=== PATIENT | female | born 1970 | race Caucasian/White ===

== ENCOUNTER 2021-12-14 18:30 | Inpatient (IN) | payer OTHER, SELFPAY ==
--- NOTE | 2021-12-14 | ECG_ITS ---
Test Reason : OVERDOSE Blood Pressure : / mmHG Vent. Rate : 102 BPM Atrial Rate : 102 BPM P-R Int : 140 ms QRS Dur : 088 ms QT Int : 356 ms P-R-T Axes : 071 032 024 degrees QTc Int : 463 ms Sinus tachycardia Biatrial enlargement Nonspecific ST and T wave abnormality Abnormal ECG When compared with ECG of 14-DEC-2021 20:01, No significant change was found Referred By: Chong Andrade Electronically Signed By:MARGARET LUNA
--- NOTE | ~2021-12-14 | XR_ITS ---
EXAMINATION: XR CHEST CLINICAL INFORMATION: Unresponsive, overdose, evaluate for pneumonia. COMPARISON: Chest radiograph dated from 06/10/2019. TECHNIQUE: Frontal view of the chest was obtained. FINDINGS: No significant abnormality is noted involving the heart, lungs, mediastinum, bony thorax or soft tissues. XR/XR chest 1V IMPRESSION: Unremarkable examination.
--- NOTE | ~2021-12-14 | CT_ITS ---
EXAMINATION: CT BRAIN AND CT CERVICAL SPINE WITHOUT CONTRAST. CLINICAL INFORMATION: Unremarkable unresponsive. Overdose. COMPARISON: None TECHNIQUE: 5 mm thin axial and reformatted 2 mm thin sagittal and coronal images of brain were obtained. Subsequently axial 3 mm thin and reformatted 2 mm thin sagittal and coronal images of cervical spine were obtained. DLP [id number] FINDINGS: BRAIN: There is no acute intra-axial, extra-axial bleed, masses or midline shift. Both lateral ventricles are symmetrical in size and configuration without enlargement. There is no acute infarction evolution. The vasquez to white matter differentiation is maintained normal. Bone windows reveal no calvarial abnormality. There is no scalp soft tissue abnormality. Visualized bilateral paranasal sinuses and mastoid air cells are well-aerated. CERVICAL SPINE: There is mild reversal of cervical lordosis. The vertebral heights and alignment is normal. Mild loss of C6-C7 disc height with ventral spondylosis noted. Rest of the disc heights are normal. The craniovertebral junction and the C1-C2 alignment is normal. No acute fracture or dislocation seen. The prevertebral and the paravertebral soft tissues are normal. Partially visualized lung apices are clear. CT/CT cervical spine wo IV con IMPRESSION: No acute intracranial process seen. Reversal of cervical lordosis. No acute fracture or dislocation seen.
--- NOTE | ~2021-12-14 | XR_ITS ---
EXAMINATION: XR KNEE, RIGHT CLINICAL INFORMATION: Pain COMPARISON: None TECHNIQUE: Four views of the right knee. FINDINGS: Bones and soft tissues are normal. No fracture or joint effusion. Alignment is anatomic. Joint spaces are well maintained. No abnormal soft tissue calcification. XR/XR knee RT 4V IMPRESSION: No significant osseous changes to explain patient's pain symptoms.
--- NOTE | ~2021-12-14 | CT_ITS ---
EXAMINATION: CT BRAIN AND CT CERVICAL SPINE WITHOUT CONTRAST. CLINICAL INFORMATION: Unremarkable unresponsive. Overdose. COMPARISON: None TECHNIQUE: 5 mm thin axial and reformatted 2 mm thin sagittal and coronal images of brain were obtained. Subsequently axial 3 mm thin and reformatted 2 mm thin sagittal and coronal images of cervical spine were obtained. DLP [id number] FINDINGS: BRAIN: There is no acute intra-axial, extra-axial bleed, masses or midline shift. Both lateral ventricles are symmetrical in size and configuration without enlargement. There is no acute infarction evolution. The vasquez to white matter differentiation is maintained normal. Bone windows reveal no calvarial abnormality. There is no scalp soft tissue abnormality. Visualized bilateral paranasal sinuses and mastoid air cells are well-aerated. CERVICAL SPINE: There is mild reversal of cervical lordosis. The vertebral heights and alignment is normal. Mild loss of C6-C7 disc height with ventral spondylosis noted. Rest of the disc heights are normal. The craniovertebral junction and the C1-C2 alignment is normal. No acute fracture or dislocation seen. The prevertebral and the paravertebral soft tissues are normal. Partially visualized lung apices are clear. CT/CT head/brain wo IV con IMPRESSION: No acute intracranial process seen. Reversal of cervical lordosis. No acute fracture or dislocation seen.
[2021-12-14 18:34] VITALS: BP 129/86; BP 132/86; PULSE 113; PULSE 120; RESP 20; O2SAT 96; O2SAT 98; BMI 37.3
--- NOTE | 2021-12-14 18:36 | ECG_ITS ---
Test Reason : Overdose Blood Pressure : / mmHG Vent. Rate : 112 BPM Atrial Rate : 112 BPM P-R Int : 144 ms QRS Dur : 088 ms QT Int : 342 ms P-R-T Axes : 076 045 031 degrees QTc Int : 466 ms Sinus tachycardia Biatrial enlargement Nonspecific ST and T wave abnormality Abnormal ECG When compared with ECG of 21-OCT-2017 20:12, Non-specific change in ST segment in Inferior leads Non-specific change in ST segment in Anterior leads T wave inversion now evident in Inferior leads Referred By: Chong Andrade Electronically Signed By:MARGARET LUNA
--- NOTE | 2021-12-14 18:52 | ED_ITS ---
HPI - Overdose General Chief Complaint: Overdose Stated Complaint: OD Time Seen by Provider: 12/14/21 18:35 Source: EMS Mode of arrival: EMS Limitations: altered mental status History of Present Illness HPI Narrative: 51-year-old female brought to emergency department by ambulance for evaluation of possible overdose. The information on this patient is very limited. According to the paramedics she was seen this morning and she was well, she was then found unresponsive with multiple empty pill bottles around the patient. The paramedics wrote down the name of the medications but did not bring in the pill bottles. The medications are listed as follows: Acetaminophen- caffeine,nifedipine ER 30 mg, losartan/HCTZ-25, gabapentin 300 mg, butalbital/acetaminophen/caffeine 50/300/40, cyclobenzaprine 5 mg, clonazepam 0.5 mg Pradaxa 150 mg, vitamin-C 250 mg. 1917: The patient was not given any treatment and she is now more awake and is able to give a history. She told me that she was upset with her boyfriend this morning and that he was ?antagonizing her ?. This made her very upset and she told him that she was going to kill herself an overdose on her medications. He then told her to go ahead and take the medications cuts he was not going to stop her. This occurred around 08:30 hours this morning. Patient states that she then took 6 prescription bottles and took all the medications that were in them. She does not know when he is prescription bottles were filled or how many pills were in each bottle. She told me that she has been fighting with her boyfriend since he cheated on her recently with another woman. She states that the other woman was a child and barely of age to have set and this made her very upset. Related Data Home Medications Medication Instructions Recorded Confirmed clonazepam 0.5 mg tablet 1 tab PO BID PRN anxiety 12/15/21 12/15/21 cyclobenzaprine 5 mg tablet 1 mg PO DAILY 12/15/21 12/15/21 fluticasone propionate 50 1 spray intranasal BID PRN 12/15/21 12/15/21 mcg/actuation nasal congestion spray,suspension gabapentin 300 mg capsule 3 cap PO TID 12/15/21 12/15/21 losartan 100 1 tab PO DAILY 12/15/21 12/15/21 mg-hydrochlorothiazide 25 mg tablet nifedipine 30 mg tablet,extended 1 tab PO DAILY 12/15/21 12/15/21 release 24 hr Allergies Allergy/AdvReac Type Severity Reaction Status Date / Time buprenorphine [From SUBOXONE] Allergy Intermediate weakness Unverified 12/15/19 16:15 naloxone [From SUBOXONE] Allergy Intermediate weakness Unverified 12/15/19 16:15 heparin [HEPARIN] Allergy Unknown UNKNOWN Unverified 12/15/19 16:15 Iodinated Contrast Media Allergy Unknown KIDNEY Unverified 12/15/19 16:15 [IV CONTRAST] FAILURE rivaroxaban [From XARELTO] Allergy Unknown HAIR LOSS Unverified 12/15/19 16:15 AND SWELLING Review of Systems Review of Systems: Yes all other systems are reviewed and are negative [facility] Past Medical History [facility] Narrative: Past medical history: Hypertension, asthma, lupus, 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 Social history: She denies alcohol, drug and tobacco use Social History Social History Advance Directives: No Physical Exam Vital Signs: Vital Signs: Last Vital Signs Temp 97.4 F 12/15/21 00:48 Pulse 108 H 12/15/21 00:48 Resp 16 12/15/21 00:48 BP 102/68 12/15/21 00:48 Pulse Ox 95 12/15/21 00:48 O2 Del Method 12/15/21 00:48 BMI result Body Mass Index 37.3 Const: Other: Initially, the patient was minimally responsive to painful stimuli but did withdraw from painful stimuli. Without treatment she woke up in the emergency department and was able to answer questions appropriately. Orientation/consciousness: oriented to person HEENT: Head: Yes normal to inspection, Yes normocephalic and Yes atraumatic Ears: external ears normal General nose exam: Normal external nose present Face and sinus: Yes other (The patient has blood on her face, possibly from her nose) Mouth: Normal oral and palatal mucosa present Throat: Yes posterior oropharynx normal Eyes: Other: Pupils were 3 mm, symmetric and reactive to light General: appearance normal, both eyes and all related structures Neck: Neck: Yes normal visual inspection, Yes no lymphadenopathy, Yes trachea midline and Yes supple Chest: Chest palpation & inspection: normal inspection of the chest and normal palpation of entire chest wall Resp: Effort & Inspection: normal respiratory effort and able to speak in complete sentences Auscultation: clear to auscultation bilaterally Cardio: Rate: tachycardic Rhythm: regular rhythm Heart sounds: S1 normal heart sound present, S2 normal heart sound present and no murmurs GI: Inspection: Yes normal to inspection Palpation (GI): Soft to palpation, nontender and no guarding Auscultation: normal bowel sounds : Other: Nurses were placing a Mccann catheter and noted to tampons in the patient's vagi na which they removed, the temp eyes with dry with no blood on them. Skin: General skin exam: no rashes or lesions noted Neuro: General: oriented to person Cranial nerves: Yes CN's II-XII intact bilaterally Motor exam (neuro): 5/5 motor strength present throughout Extrem: General: Yes normal to inspection Psych: Appearance: grossly normal Affect: Sad affect present Attitude: cooperative Thought content: Suicidality present Course Course Course Narrative: 51-year-old female who presents emergency department for evaluation of altered mental status after an intentional overdose of her prescribed medications at approximately 08:30 hours with the intent to kill herself. The patient's physical examination did reveal some dried blood on her face, she initially was somnolent but arousable to painful stimuli in did withdraw from pain stimuli. Without treatment she became more responsive and was able to answer questions without any difficulty. The patient's vital signs did reveal an elevated pulse of 113 with normal respiratory rate, and normal O2 saturation of 96% on room air. I did discuss this overdose with the Poison coding specialist home health who also discussed the case with her public relations officer. The biggest concerns are the patient's acetaminophen ingestion as well as the fact that she ingested 3 antihypertensive medications (nifedipine, losartan and hydrochlorothiazide). The recommendation was to get an EKG every hour to follow the patient's QRS and QTC intervals. They also recommended NAC if her LFTs are elevated. They also felt that the patient's ingestion of cyclobenzaprine, gabapentin and clonazepam would explain her altered mental status. 0003: Patient's laboratory evaluation revealed a normal CBC, normal CMP, normal TSH, beta-hCG below detectable limits. Urinalysis was negative. Urine tox screen was positive for marijuana. Patient's salicylate and acetaminophen were below detectable limits. Patient's ethanol level was below detectable limits. 0006: Start physician observation: The patient's laboratory evaluation is very reassuring, this overdose occurred at least 12-15 hours prior to the patient's presentation. At this point, I believe the patient is medically cleared for psychiatric evaluation. I did place the patient on a Section 12. The patient will be transferred to the ED psychiatric unit. Patient is somnolent but arousable, she answers all questions appropriately, lungs were clear, heart regular rate rhythm, abdomen soft nontender, neurologic exam is nonfocal. MDM - Overdose Medical Records Attestation: I reviewed the patient's medical records. Lab Data Attestation: I reviewed the patient's lab results. Result diagrams: 12/14/21 20:15 12/14/21 20:15 Labs: Lab Results 12/14/21 12/14/21 12/14/21 Range/Units 18:35 20:14 20:15 WBC 8.6 (4.8-10.8) X10*3/uL RBC 5.15 (4.20-5.50) X10*6/uL Hgb 14.8 (12.0-16.0) g/dl Hct 43.7 (37.0-47.0) % MCV 84.9 (80.0-98.0) fL MCH 28.7 (27.0-33.0) pg MCHC 33.9 (31.0-35.0) g/dl RDW 13.7 (11.0-16.0) % Plt Count 343 (160-400) X10*3/uL MPV 11.0 (9.4-12.3) fL Immature Gran % (Auto) 0.2 (0.0-0.4) % Neut % (Auto) 85.2 H (45-73) % Lymph % (Auto) 11.2 L (20-40) % Beckham % (Auto) 2.8 (2-11) % Eos % (Auto) 0.1 (0-4) % Baso % (Auto) 0.5 (0-2) % Lymph # (Auto) 1.0 L (1.2-4.9) X10*3/uL Beckham # (Auto) 0.2 (0.1-1.2) X10*3/uL Eos # (Auto) 0.0 (0.0-0.4) X10*3/uL Baso # (Auto) 0.0 (0.0-0.2) X10*3/uL Abs Immat Gran (auto) 0.02 (0.00-0.03) X10*3/uL Absolute Neuts (auto) 7.4 (2.0-8.3) x10*3/uL Absolute Nucleated RBC 0.000 (0.0-0.012) X10*3/uL Nucleated RBC % (auto) 0.0 (0.0-0.2) /100WBC PT (10.0-13.1) SEC INR (0.9-1.1) APTT (26.0-36.4) SEC Sodium (135-145) mmol/L Potassium (3.3-5.1) mmol/L Chloride (96-108) mmol/L Carbon Dioxide (22-29) mmol/L Anion Gap (12-20) BUN (9-16) mg/dL Creatinine (0.5-1.4) mg/dL Estim Creat Clear Calc Estimated GFR POC Glucose 93 (60-115) mg/dL Random Glucose (60-115) mg/dL Lactic Acid (0.5-2.0) mmol/L Calcium (8.4-10.2) mg/dL Total Bilirubin (0.0-1.0) mg/dL AST (5-31) U/L ALT (0-31) U/L Alkaline Phosphatase (39-117) U/L Total Creatine Kinase (26-140) U/L Troponin I High Sens (<3.5-17.0) ng/L Total Protein (6.5-8.0) g/dL Albumin (3.5-5.0) g/dL Lipase (8-78) U/L TSH (0.32-4.0) uIU/mL Beta HCG, Quant mIU/mL Urine Color Yellow Urine Appearance Clear Urine pH 5.5 (5.0-9.0) Ur Specific [place] 1.010 (1.005-1.025) Urine Protein Negative (Neg-Trace) mg/dL Urine Glucose (UA) Negative (Negative) mg/dL Urine Ketones 40 (Negative) mg/dL Urine Blood Trace H (Negative) Urine Nitrite Negative (Negative) Ur Leukocyte Esterase Negative (Negative) Urine RBC 0-2 (0-2) /HPF Urine WBC 0-5 (0-5) /HPF Ur Squamous Epith Cells 0-2 (0-2) /HPF Urine Bacteria None Seen (None Seen) Hyaline Casts 0-2 (0-2) /LPF Salicylates (15-30) mg/dL Urine Opiates Screen (Not Detect) Urine Fentanyl Screen (Not Detect) Acetaminophen (<30) mcg/mL Ur Barbiturates Screen (Not Detect) Ur Phencyclidine Scrn (Not Detect) Ur Amphetamines Screen (Not Detect) U Benzodiazepines Scrn (Not Detect) Urine Cocaine Screen (Not Detect) U Marijuana (THC) Screen (Not Detect) Ethyl Alcohol mg/dL COVID-19 (KRISTY) (Negative) COVID-19 Clin Com 12/14/21 12/14/21 12/14/21 Range/Units 20:15 20:15 20:15 WBC (4.8-10.8) X10*3/uL RBC (4.20-5.50) X10*6/uL Hgb (12.0-16.0) g/dl Hct (37.0-47.0) % MCV (80.0-98.0) fL MCH (27.0-33.0) pg MCHC (31.0-35.0) g/dl RDW (11.0-16.0) % Plt Count (160-400) X10*3/uL MPV (9.4-12.3) fL Immature Gran % (Auto) (0.0-0.4) % Neut % (Auto) (45-73) % Lymph % (Auto) (20-40) % Beckham % (Auto) (2-11) % Eos % (Auto) (0-4) % Baso % (Auto) (0-2) % Lymph # (Auto) (1.2-4.9) X10*3/uL [place] # (Auto) (0.1-1.2) X10*3/uL Eos # (Auto) (0.0-0.4) X10*3/uL Baso # (Auto) (0.0-0.2) X10*3/uL Abs Immat Gran (auto) (0.00-0.03) X10*3/uL Absolute Neuts (auto) (2.0-8.3) x10*3/uL Absolute Nucleated RBC (0.0-0.012) X10*3/uL Nucleated RBC % (auto) (0.0-0.2) /100WBC PT 13.3 H (10.0-13.1) SEC INR 1.2 H (0.9-1.1) APTT 54.9 H (26.0-36.4) SEC Sodium 137 (135-145) mmol/L Potassium 4.9 (3.3-5.1) mmol/L Chloride 100 (96-108) mmol/L Carbon Dioxide 15 L (22-29) mmol/L Anion Gap 27 H (12-20) BUN 9 (9-16) mg/dL Creatinine 0.80 (0.5-1.4) mg/dL Estim Creat Clear Calc 92.6 Estimated GFR > 60 POC Glucose (60-115) mg/dL Random Glucose 84 (60-115) mg/dL Lactic Acid 0.7 (0.5-2.0) mmol/L Calcium 9.6 (8.4-10.2) mg/dL Total Bilirubin 0.9 (0.0-1.0) mg/dL AST 31 (5-31) U/L ALT 19 (0-31) U/L Alkaline Phosphatase 67 (39-117) U/L Total Creatine Kinase 52 (26-140) U/L Troponin I High Sens (<3.5-17.0) ng/L Total Protein 8.5 H (6.5-8.0) g/dL Albumin 4.7 (3.5-5.0) g/dL Lipase 9 (8-78) U/L TSH (0.32-4.0) uIU/mL Beta HCG, Quant 3 mIU/mL Urine Color Urine Appearance Urine pH (5.0-9.0) Ur Specific [place] (1.005-1.025) Urine Protein (Neg-Trace) mg/dL Urine Glucose (UA) (Negative) mg/dL Urine Ketones (Negative) mg/dL Urine Blood (Negative) Urine Nitrite (Negative) Ur Leukocyte Esterase (Negative) Urine RBC (0-2) /HPF Urine WBC (0-5) /HPF Ur Squamous Epith Cells (0-2) /HPF Urine Bacteria (None Seen) Hyaline Casts (0-2) /LPF Salicylates < 5.0 L (15-30) mg/dL Urine Opiates Screen (Not Detect) Urine Fentanyl Screen (Not Detect) Acetaminophen < 1 (<30) mcg/mL Ur Barbiturates Screen (Not Detect) Ur Phencyclidine Scrn (Not Detect) Ur Amphetamines Screen (Not Detect) U Benzodiazepines Scrn (Not Detect) Urine Cocaine Screen (Not Detect) U Marijuana (THC) Screen (Not Detect) Ethyl Alcohol < 10 mg/dL COVID-19 (KRISTY) (Negative) COVID-19 Clin Com 12/14/21 12/14/21 12/14/21 Range/Units 20:15 20:15 20:15 WBC (4.8-10.8) X10*3/uL RBC (4.20-5.50) X10*6/uL Hgb (12.0-16.0) g/dl Hct (37.0-47.0) % MCV (80.0-98.0) fL MCH (27.0-33.0) pg MCHC (31.0-35.0) g/dl RDW (11.0-16.0) % Plt Count (160-400) X10*3/uL MPV (9.4-12.3) fL Immature Gran % (Auto) (0.0-0.4) % Neut % (Auto) (45-73) % Lymph % (Auto) (20-40) % Beckham % (Auto) (2-11) % Eos % (Auto) (0-4) % Baso % (Auto) (0-2) % Lymph # (Auto) (1.2-4.9) X10*3/uL [place] # (Auto) (0.1-1.2) X10*3/uL Eos # (Auto) (0.0-0.4) X10*3/uL Baso # (Auto) (0.0-0.2) X10*3/uL Abs Immat Gran (auto) (0.00-0.03) X10*3/uL Absolute Neuts (auto) (2.0-8.3) x10*3/uL Absolute Nucleated RBC (0.0-0.012) X10*3/uL Nucleated RBC % (auto) (0.0-0.2) /100WBC PT (10.0-13.1) SEC INR (0.9-1.1) APTT (26.0-36.4) SEC Sodium (135-145) mmol/L Potassium (3.3-5.1) mmol/L Chloride (96-108) mmol/L Carbon Dioxide (22-29) mmol/L Anion Gap (12-20) BUN (9-16) mg/dL Creatinine (0.5-1.4) mg/dL Estim Creat Clear Calc Estimated GFR POC Glucose (60-115) mg/dL Random Glucose (60-115) mg/dL Lactic Acid (0.5-2.0) mmol/L Calcium (8.4-10.2) mg/dL Total Bilirubin (0.0-1.0) mg/dL AST (5-31) U/L ALT (0-31) U/L Alkaline Phosphatase (39-117) U/L Total Creatine Kinase (26-140) U/L Troponin I High Sens 5.4 (<3.5-17.0) ng/L Total Protein (6.5-8.0) g/dL Albumin (3.5-5.0) g/dL Lipase (8-78) U/L TSH 0.92 (0.32-4.0) uIU/mL Beta HCG, Quant mIU/mL Urine Color Urine Appearance Urine pH (5.0-9.0) Ur Specific [place] (1.005-1.025) Urine Protein (Neg-Trace) mg/dL Urine Glucose (UA) (Negative) mg/dL Urine Ketones (Negative) mg/dL Urine Blood (Negative) Urine Nitrite (Negative) Ur Leukocyte Esterase (Negative) Urine RBC (0-2) /HPF Urine WBC (0-5) /HPF Ur Squamous Epith Cells (0-2) /HPF Urine Bacteria (None Seen) Hyaline Casts (0-2) /LPF Salicylates (15-30) mg/dL Urine Opiates Screen (Not Detect) Urine Fentanyl Screen (Not Detect) Acetaminophen (<30) mcg/mL Ur Barbiturates Screen (Not Detect) Ur Phencyclidine Scrn (Not Detect) Ur Amphetamines Screen (Not Detect) U Benzodiazepines Scrn (Not Detect) Urine Cocaine Screen (Not Detect) U Marijuana (THC) Screen (Not Detect) Ethyl Alcohol mg/dL COVID-19 (KRISTY) Negative (Negative) COVID-19 Clin Com See Note 12/14/21 Range/Units 20:15 WBC (4.8-10.8) X10*3/uL RBC (4.20-5.50) X10*6/uL Hgb (12.0-16.0) g/dl Hct (37.0-47.0) % MCV (80.0-98.0) fL MCH (27.0-33.0) pg MCHC (31.0-35.0) g/dl RDW (11.0-16.0) % Plt Count (160-400) X10*3/uL MPV (9.4-12.3) fL Immature Gran % (Auto) (0.0-0.4) % Neut % (Auto) (45-73) % Lymph % (Auto) (20-40) % Beck[place] % (Auto) (2-11) % Eos % (Auto) (0-4) % Baso % (Auto) (0-2) % Lymph # (Auto) (1.2-4.9) X10*3/uL [place] # (Auto) (0.1-1.2) X10*3/uL Eos # (Auto) (0.0-0.4) X10*3/uL Baso # (Auto) (0.0-0.2) X10*3/uL Abs Immat Gran (auto) (0.00-0.03) X10*3/uL Absolute Neuts (auto) (2.0-8.3) x10*3/uL Absolute Nucleated RBC (0.0-0.012) X10*3/uL Nucleated RBC % (auto) (0.0-0.2) /100WBC PT (10.0-13.1) SEC INR (0.9-1.1) APTT (26.0-36.4) SEC Sodium (135-145) mmol/L Potassium (3.3-5.1) mmol/L Chloride (96-108) mmol/L Carbon Dioxide (22-29) mmol/L Anion Gap (12-20) BUN (9-16) mg/dL Creatinine (0.5-1.4) mg/dL Estim Creat Clear Calc Estimated GFR POC Glucose (60-115) mg/dL Random Glucose (60-115) mg/dL Lactic Acid (0.5-2.0) mmol/L Calcium (8.4-10.2) mg/dL Total Bilirubin (0.0-1.0) mg/dL AST (5-31) U/L ALT (0-31) U/L Alkaline Phosphatase (39-117) U/L Total Creatine Kinase (26-140) U/L Troponin I High Sens (<3.5-17.0) ng/L Total Protein (6.5-8.0) g/dL Albumin (3.5-5.0) g/dL Lipase (8-78) U/L TSH (0.32-4.0) uIU/mL Beta HCG, Quant mIU/mL Urine Color Urine Appearance Urine pH (5.0-9.0) Ur Specific [place] (1.005-1.025) Urine Protein (Neg-Trace) mg/dL Urine Glucose (UA) (Negative) mg/dL Urine Ketones (Negative) mg/dL Urine Blood (Negative) Urine Nitrite (Negative) Ur Leukocyte Esterase (Negative) Urine RBC (0-2) /HPF Urine WBC (0-5) /HPF Ur Squamous Epith Cells (0-2) /HPF Urine Bacteria (None Seen) Hyaline Casts (0-2) /LPF Salicylates (15-30) mg/dL Urine Opiates Screen Not Detected (Not Detect) Urine Fentanyl Screen Not Detected (Not Detect) Acetaminophen (<30) mcg/mL Ur Barbiturates Screen Not Detected (Not Detect) Ur Phencyclidine Scrn Not Detected (Not Detect) Ur Amphetamines Screen Not Detected (Not Detect) U Benzodiazepines Scrn Not Detected (Not Detect) Urine Cocaine Screen Not Detected (Not Detect) U Marijuana (THC) Screen POSITIVE H (Not Detect) Ethyl Alcohol mg/dL COVID-19 (KRISTY) (Negative) COVID-19 Clin Com ABG Data ABG results: EKG 1.: 1843: Sinus tachycardia with a rate of 112, normal MA interval, QRS duration QTC interval, no ST segment elevation, no ST segment depression, no significant T-wave abnormalities, no PACs, no PVCs EKG 2.: 2000: Sinus tachycardia with a rate of 107, normal MA interval, QRS duration and QTC interval, no ST segment elevation, no ST segment depression, no significant T-wave abnormalities, no PACs, no PVCs, unchanged from EKG 1. EKG 3.: 2226: Sinus tachycardia with a rate of 102, normal MA interval, QRS duration and QTC interval, no ST segment elevation, no ST segment depression, no significant T-wave abnormalities, no PACs, no PVCs, unchanged from EKG 1. Or EKG 2. ECG Data Attestation: I personally reviewed and interpreted this ECG as follows: Interpretation: 1843: Sinus tachycardia with a rate of 112, normal MA interval, QRS duration QTC interval, no ST segment elevation, no ST segment depression, no PACs, no PVCs, no T-wave abnormalities. Critical Care Time Critical Care Time Critical Care Time: Yes Total Critical Care Time: 45 Attestation: Critical Care: The patient was critically ill with a high probability of imminent or life threatening deterioration. I spent greater than 30 minutes of discontinuous time evaluating the patient,delivering critical care at the bedside, discussing and evaluating pertinent data with consultants. Critical care time does not include time spent performing separately billable procedures or teaching. Total time spent performing critical care was 45 minutes. Discharge Plan Discharge Clinical Impression: Drug overdose, Suicide attempt Patient Disposition: Still a Patient Prescriptions: No Action nifedipine 30 mg tablet extended release 24hr 1 tab PO DAILY clonazepam 0.5 mg tablet 1 tab PO BID PRN (Reason: anxiety) losartan-hydrochlorothiazide 100-25 mg tablet 1 tab PO DAILY gabapentin 300 mg capsule 3 cap PO TID fluticasone propionate 50 mcg/actuation spray,suspension 1 spray intranasal BID PRN (Reason: congestion) cyclobenzaprine 5 mg tablet 1 mg PO DAILY
--- NOTE | 2021-12-14 18:56 | PC.NURSE ---
patient arousable stating she took all her medication would not like boyfriend not to come in because he encouraged her to do it . DR Tim Andrade at bed side talking about patients medical history of lupus , blood clots . IV placed in right AC . Catheter placed . patient aware of plan of care . patient placed on personnel monitor . patient aware of plan of care .
[2021-12-14] MEDS: 0.9 % Sodium Chloride 1,000 ML 999 ML IV (19:28)
--- NOTE | 2021-12-14 19:45 | ECG_ITS ---
Test Reason : OVERDOSE Blood Pressure : / mmHG Vent. Rate : 107 BPM Atrial Rate : 107 BPM P-R Int : 148 ms QRS Dur : 084 ms QT Int : 348 ms P-R-T Axes : 070 035 023 degrees QTc Int : 464 ms Sinus tachycardia Possible Left atrial enlargement Nonspecific ST and T wave abnormality Borderline ECG When compared with ECG of 14-DEC-2021 18:43, No significant change was found Referred By: Chong Andrade Electronically Signed By:MARGARET LUNA
[2021-12-14 20:00] VITALS: BP 121/76; PULSE 106; RESP 10; O2SAT 98
[2021-12-14 20:03] VITALS: BP 121/76; PULSE 108; RESP 13; O2SAT 98
[2021-12-14 20:24] LABS: Appearance Urine Clear; Color Urine Yellow; Glucose Urine UA Negative (Negative); Leukocyte Esterase Urine Negative (Negative); Nitrite Urine Negative (Negative); PH 5.5 (5.0-9.0); UMIC TRIGGER UACC YES; Urine Blood Trace (Negative); Urine Ketones 40 mg/dL (Negative); Urine Protein Negative (Neg-Trace)
[2021-12-14 20:24] LABS: MANUAL DIFF FLAG NO
[2021-12-14 20:30] LABS: Basophils Percent Auto 0.5 % (0-2); Eosinophils Percent Auto 0.1 % (0-4); Hematocrit 43.7 % (37.0-47.0); Hemoglobin 14.8 g/dl (12.0-16.0); Imm Gran Abs Auto 0.02 X10*3/uL (0.00-0.03); Imm Gran Pct Auto 0.2 % (0.0-0.4); Lymphocytes Percent Auto 11.2 % (20-40); Mean Corpuscular HGB Conc 33.9 g/dl (31.0-35.0); Mean Corpuscular Hemoglobin 28.7 pg (27.0-33.0); Mean Corpuscular Volume 84.9 fL (80.0-98.0); Monocytes Absolute Auto 0.2 X10*3/uL (0.1-1.2); Monocytes Percent Auto 2.8 % (2-11); Neutrophils Absolute Auto 7.4 x10*3/uL (2.0-8.3); Neutrophils Percent Auto 85.2 % (45-73); Platelet Count 343 X10*3/uL (160-400); Red Blood Count 5.15 X10*6/uL (4.20-5.50); Red Cell Distribution Width 13.7 % (11.0-16.0); White Blood Count 8.6 X10*3/uL (4.8-10.8)
[2021-12-14 20:31] LABS: Glucose, Whole Blood 93 mg/dL (60-115)
[2021-12-14 20:39] LABS: Lactic Acid 0.7 mmol/L (0.5-2.0)
[2021-12-14 20:39] LABS: Bacteria Urine None Seen (None Seen); Hyaline Casts Urine 0-2 /LPF (0-2); RBC Urine 0-2 /HPF (0-2); Squamous Epithelial Cell Urine 0-2 /HPF (0-2); WBC Urine 0-5 /HPF (0-5)
[2021-12-14 20:42] LABS: INTERNATIONAL NORM RATIO 1.2 (0.9-1.1); Prothrombin Time 13.3 SEC (10.0-13.1)
[2021-12-14 20:43] LABS: Amphetamine Screen Urine Not Detected (Not Detect); Barbiturates, Urine Not Detected (Not Detect); Benzodiazepines Screen Urine Not Detected (Not Detect); Cannabinoid Screen Urine POSITIVE (Not Detect); Cocaine Screen Urine Not Detected (Not Detect); Fentanyl, urine Not Detected (Not Detect); Opiate Screen Urine Not Detected (Not Detect); Phencyclidine Screen Urine Not Detected (Not Detect)
[2021-12-14 20:44] LABS: COVID-19 Test Negative (Negative); Partial Thromboplastin Time 54.9 SEC (26.0-36.4)
[2021-12-14 20:48] LABS: Troponin-I High Sensitivity 5.4 ng/L (<3.5-17.0)
[2021-12-14 20:49] VITALS: BP 126/83
[2021-12-14 21:02] LABS: TSH reflex Free T4 0.92 uIU/mL (0.32-4.0)
[2021-12-14 21:47] LABS: Alanine Aminotransferase 19 U/L (0-31); Albumin Level 4.7 g/dL (3.5-5.0); Alkaline Phosphatase 67 U/L (39-117); Anion Gap 27 (12-20); Aspartate Amino Transferase 31 U/L (5-31); Bilirubin Total 0.9 mg/dL (0.0-1.0); Blood Urea Nitrogen 9 mg/dL (9-16); Calcium 9.6 mg/dL (8.4-10.2); Carbon Dioxide 15 mmol/L (22-29); Chloride 100 mmol/L (96-108); Creatinine Clr Calc Pharmacy 92.6; Estimated Glomerular Filt Rate > 60; Ethanol < 10 mg/dL; Glucose Random 84 mg/dL (60-115); Lipase 9 U/L (8-78); Potassium 4.9 mmol/L (3.3-5.1); Sodium 137 mmol/L (135-145); Total Protein 8.5 g/dL (6.5-8.0)
[2021-12-14 21:59] LABS: HCG Quantitative 3 mIU/mL
[2021-12-14 22:49] VITALS: BP 109/73; PULSE 104; RESP 15; O2SAT 97
[2021-12-14 22:54] LABS: Acetaminophen LAB < 1 mcg/mL (<30); Salicylate < 5.0 mg/dL (15-30)
--- NOTE | 2021-12-14 23:23 | PC.NURSE ---
Spoke with poison control and reported lab results, no other instructions from them. MD aware results are back
--- NOTE | 2021-12-14 23:28 | PC.NURSE ---
Addendum entered by Amarilis Pastrana RN 12/15/21 00:18: [facility] crisis referral submitted. Addendum entered by Amarilis Pastrana RN 12/14/21 23:41: Spoke to who will be putting a section 12 on the pt. Pt will be moved to [facility] Original Note: Pt is responsive to verbal stimuli. A&Ox4. Pt stated that this overdose happened intentionally and she has a history of depression. borderline personality disorder, and SI. Pt reported there are no thoughts of SI at this time. Pt stated she has been under a lot of stress recently and her boyfriend antagonized and egged on the overdose.
--- NOTE | 2021-12-15 00:44 | PC.NURSE ---
Patient just got transferred from main ED, appears frustrated and upset told us no visitor for her, [facility] called/spoke [facility]/confirmed receipt of referral/patient will be evaluated in the morning, behavior non concerning, VSS, will continue to monitor.
[2021-12-15 00:48] VITALS: BP 102/68; PULSE 108; RESP 16; TEMP 36.3; O2SAT 95
[2021-12-15] MEDS: Acetaminophen 325 MG TABLET 975 MG PO (01:27)
--- NOTE | 2021-12-15 14:40 | PHA.MEDREC ---
Pharmacy Consult ? Medication Reconciliation Pharmacy has reviewed the medication reconciliation done by Kit.
[2021-12-15 14:47] VITALS: BP 90/59; PULSE 107; TEMP 37.1; O2SAT 97
[2021-12-15 15:39] VITALS: BP 112/77; PULSE 136; RESP 18; O2SAT 97
--- NOTE | 2021-12-15 16:05 | ECG_ITS ---
Test Reason : DIZZINESS Blood Pressure : / mmHG Vent. Rate : 095 BPM Atrial Rate : 095 BPM P-R Int : 134 ms QRS Dur : 084 ms QT Int : 382 ms P-R-T Axes : 069 041 016 degrees QTc Int : 480 ms Normal sinus rhythm Right atrial enlargement T wave abnormality, consider anterior ischemia Prolonged QT Abnormal ECG When compared with ECG of 14-DEC-2021 22:26, T wave inversion now evident in Anterior leads Referred By: Chong Andrade Electronically Signed By:MARGARET LUNA
[2021-12-15] MEDS: 0.9 % Sodium Chloride 1,000 ML 999 ML IV ×2 (16:12→16:15)
[2021-12-15] MEDS: ondansetron HCL 4 MG/2 ML VIAL IVPUSH (16:15)
[2021-12-15 16:39] LABS: MANUAL DIFF FLAG NO
[2021-12-15 16:42] LABS: Basophils Absolute Auto 0.1 X10*3/uL (0.0-0.2); Basophils Percent Auto 0.9 % (0-2); Eosinophils Absolute Auto 0.1 X10*3/uL (0.0-0.4); Eosinophils Percent Auto 0.6 % (0-4); Hematocrit 45.3 % (37.0-47.0); Imm Gran Abs Auto 0.03 X10*3/uL (0.00-0.03); Imm Gran Pct Auto 0.3 % (0.0-0.4); Lymphocytes Absolute Auto 1.6 X10*3/uL (1.2-4.9); Lymphocytes Percent Auto 16.7 % (20-40); Mean Corpuscular HGB Conc 33.1 g/dl (31.0-35.0); Mean Corpuscular Hemoglobin 27.5 pg (27.0-33.0); Mean Corpuscular Volume 83.1 fL (80.0-98.0); Mean Platelet Volume 10.6 fL (9.4-12.3); Monocytes Absolute Auto 0.5 X10*3/uL (0.1-1.2); Monocytes Percent Auto 5.6 % (2-11); Neutrophils Absolute Auto 7.1 x10*3/uL (2.0-8.3); Neutrophils Percent Auto 75.9 % (45-73); Platelet Count 379 X10*3/uL (160-400); Red Blood Count 5.45 X10*6/uL (4.20-5.50); Red Cell Distribution Width 13.9 % (11.0-16.0); White Blood Count 9.3 X10*3/uL (4.8-10.8)
[2021-12-15 16:47] LABS: INTERNATIONAL NORM RATIO 1.2 (0.9-1.1); Prothrombin Time 13.4 SEC (10.0-13.1)
[2021-12-15 16:50] LABS: Partial Thromboplastin Time 46.6 SEC (26.0-36.4)
[2021-12-15 16:54] LABS: Glucose, Whole Blood 61 mg/dL (60-115)
[2021-12-15 17:00] LABS: Alanine Aminotransferase 15 U/L (0-31); Albumin Level 4.3 g/dL (3.5-5.0); Alkaline Phosphatase 59 U/L (39-117); Anion Gap 22 (12-20); Aspartate Amino Transferase 20 U/L (5-31); Blood Urea Nitrogen 14 mg/dL (9-16); Calcium 9.2 mg/dL (8.4-10.2); Carbon Dioxide 22 mmol/L (22-29); Chloride 98 mmol/L (96-108); Creatinine Clr Calc Pharmacy 69.9; Estimated Glomerular Filt Rate 55; Glucose Random 64 mg/dL (60-115); Lipase 11 U/L (8-78); Sodium 138 mmol/L (135-145); Total Protein 7.3 g/dL (6.5-8.0)
--- NOTE | 2021-12-15 17:14 | PC.NURSE ---
Jory SUMMERS came to transfer patient to [facility]. Patient c/o palpitations and dizziness vitals done see expanse for vitals. Dr. Hannah notified patient not stable to go to [facility]. MD ordered fluids, labs, ekg, and zofran for nausea. Patient has 1:1 sitter. Will continue with plan of care.
[2021-12-15 17:43] VITALS: BP 116/77; PULSE 100; RESP 18; O2SAT 98
--- NOTE | 2021-12-15 18:13 | PC.NURSE ---
Dr. Yang notified patient feeling better not as dizzy walked to the bathroom to void. vitals are in computer. Will remove iv once fluids are done unless you want me to give her more fluids. Dr. Yang's response, Her labs look good. Vital signs were improved but she still was slightly tachycardic with a Heart rate of 100. I need to add a D-dimer onto her blood work, leave the IV in for now. Will continue with plan of care.
[2021-12-15 18:17] LABS: D Dimer High Sensitivity 179 NG/ML
--- NOTE | 2021-12-15 18:23 | PC.NURSE ---
Dr. Rosenthal wants iv pulled. D dimer is normal.
--- NOTE | 2021-12-15 18:28 | PC.NURSE ---
Spoke to Jory RN regarding transfer to let her know she is medically cleared for admission. Will try to come before change of shift if not next shift will come to get her.
[2021-12-15 22:00] VITALS: BP 117/75; PULSE 113; RESP 18; TEMP 36.4; O2SAT 97
--- NOTE | 2021-12-16 | ECG_ITS ---
Test Reason : cp Blood Pressure : / mmHG Vent. Rate : 092 BPM Atrial Rate : 092 BPM P-R Int : 130 ms QRS Dur : 086 ms QT Int : 384 ms P-R-T Axes : 074 049 -24 degrees QTc Int : 474 ms Normal sinus rhythm Biatrial enlargement Cannot rule out Inferior infarct , age undetermined T wave abnormality, consider anterolateral ischemia Abnormal ECG When compared with ECG of 15-DEC-2021 16:13, Minimal criteria for Inferior infarct are now Present T wave inversion more evident in Inferior leads T wave inversion more evident in Anterior leads Referred By: Smooth Orr Electronically Signed By:MARGARET LUNA
[2021-12-16] MEDS: clonazePAM 0.5 MG TABLET PO ×2 (00:22→09:43)
[2021-12-16] MEDS: traZODone HCL 50 MG TABLET PO (00:22)
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
[2021-12-16 06:00] VITALS: BP 140/74; PULSE 115; RESP 16; TEMP 36.8; O2SAT 94
[2021-12-16 08:55] LABS: Glucose, Whole Blood 76 mg/dL (60-115)
[2021-12-16 09:08] LABS: Estimated Average Glucose 91 mg/dL; Hemoglobin A1c % 4.8 %
[2021-12-16 09:26] LABS: Alanine Aminotransferase 19 U/L (0-31); Albumin Level 4.4 g/dL (3.5-5.0); Alkaline Phosphatase 61 U/L (39-117); Anion Gap 22 (12-20); Aspartate Amino Transferase 24 U/L (5-31); Blood Urea Nitrogen 10 mg/dL (9-16); Calcium 9.3 mg/dL (8.4-10.2); Carbon Dioxide 18 mmol/L (22-29); Chloride 101 mmol/L (96-108); Cholesterol 225 mg/dL; Creatinine Clr Calc Pharmacy 85.1; Estimated Glomerular Filt Rate > 60; Glucose Fasting 67 mg/dL (60-99); HDL Cholesterol 29 mg/dL; LDL Cholesterol Calculated 171 mg/dl; Potassium 4.3 mmol/L (3.3-5.1); Sodium 137 mmol/L (135-145); Total Protein 7.7 g/dL (6.5-8.0); Triglycerides 127 mg/dL
[2021-12-16 09:43] LABS: Thyroid Stimulating Hormone 2.92 uIU/mL (0.32-4.0)
[2021-12-16] MEDS: NIFEdipine ER 30 MG TAB.ER.24 PO (09:43)
[2021-12-16] MEDS: Losartan Potassium 50 MG TABLET 100 MG PO (09:43)
[2021-12-16] MEDS: hydroCHLOROthiazide 25 MG TABLET PO (09:44)
[2021-12-16 10:15] LABS: Folate 10.9 ng/mL (> or = 4.0); Vitamin B12 519 pg/mL (200-900)
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
[2021-12-16 11:39] LABS: Alanine Aminotransferase 16 U/L (0-31); Albumin Level 4.4 g/dL (3.5-5.0); Alkaline Phosphatase 61 U/L (39-117); Anion Gap 18 (12-20); Aspartate Amino Transferase 23 U/L (5-31); Blood Urea Nitrogen 11 mg/dL (9-16); Calcium 9.6 mg/dL (8.4-10.2); Carbon Dioxide 24 mmol/L (22-29); Chloride 98 mmol/L (96-108); Creatinine Clr Calc Pharmacy 67.9; Estimated Glomerular Filt Rate 53; Glucose Random 131 mg/dL (60-115); Hematocrit 44.1 % (37.0-47.0); Hemoglobin 14.6 g/dl (12.0-16.0); Mean Corpuscular HGB Conc 33.1 g/dl (31.0-35.0); Mean Corpuscular Hemoglobin 27.7 pg (27.0-33.0); Mean Corpuscular Volume 83.5 fL (80.0-98.0); Mean Platelet Volume 10.8 fL (9.4-12.3); Platelet Count 332 X10*3/uL (160-400); Potassium 4.1 mmol/L (3.3-5.1); Red Blood Count 5.28 X10*6/uL (4.20-5.50); Red Cell Distribution Width 13.8 % (11.0-16.0); Sodium 136 mmol/L (135-145); Total Protein 7.4 g/dL (6.5-8.0); White Blood Count 7.3 X10*3/uL (4.8-10.8)
[2021-12-16 11:40] LABS: Troponin-I High Sensitivity 13.4 ng/L (<3.5-17.0)
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
[2021-12-16] MEDS: Sertraline HCL 25 MG TABLET PO (15:08)
[2021-12-16 20:15] VITALS: BP 116/73; PULSE 110; RESP 18; TEMP 36.4; O2SAT 97
[2021-12-16 21:15] VITALS: BP 92/51; PULSE 94
[2021-12-16 21:16] VITALS: BP 109/71; PULSE 124
[2021-12-16 21:17] VITALS: BP 100/67; PULSE 140
[2021-12-16 21:20] VITALS: BP 103/57; PULSE 100
[2021-12-16] MEDS: Dabigatran Etexilate Mesylate 150 MG CAPSULE PO (21:57)
[2021-12-16] MEDS: Mesalamine 400 MG CAP.DRTAB. 800 MG PO (21:57)
--- NOTE | 2021-12-16 22:40 | PC.NURSE ---
Orthostatic VS: 21:15 laying down BP 92/51 HR 84 21:16 standing BP 109/71 HR 124 21:17 standing x 1 min BP 100/67 HR 140 *Pt became lightheaded and passed out briefly, lowered to bed, feet elevated. Pt regained lucidity, c/o extreme dizziness and nausea. 21:20 BP 103/57 HR 100 NPP and hospitalist notified. Order for IV LR bolus ordered.
[2021-12-16] MEDS: Prochlorperazine Edisylate 10 MG/2 ML VIAL 5 MG IM (23:44)
[2021-12-16] MEDS: Lactated Ringers 1,000 ML 999 ML IV (23:45)
[2021-12-17] MEDS: Lactated Ringers 1,000 ML 999 ML IV (00:32)
[2021-12-17] MEDS: traZODone HCL 100 MG TABLET PO ×2 (00:33→23:13)
[2021-12-17 01:39] VITALS: BP 128/79; PULSE 86
--- NOTE | 2021-12-17 06:45 | P.CNHOSGPS_ITS ---
History of Present Illness Data of Consult Service Date: 12/17/21 Primary Care Provider: Hugh Ng MD HPI this 51-year-old female with past medical history of MS, SLE, DVT /PE, Crohn's disease, HTN, who is admitted to [facility] for suicidal ideation after she overdosed on her antihypertensives. We are asked to see this patient after she had a syncopal episode. Per nurse's report, they were taking orthostatic vitals 1 patient's heart rate increased to 140, and she syncopized. On my interview of the patient reports that since the admission she has been feeling very dizzy, having significant palpitations every time she got up from a seated or lying down position. She reports that she feels unsteady on her feet and has to lower herself to the ground in order to feel better and for the episode to pass. She feels palpitations, clammy, and she is also complaining of midsternal chest pain that is reproducible, and worse with movement. Vitals reviewed show a heart rate that increased from 80-140 upon standing, and blood pressure was not recorded as patient fainted prior to it but has been soft and the 90s/70. Labs are also reviewed which showed no significant abnormality. Review of Systems Review of Systems: Yes all other systems are reviewed and are negative [facility] Medical History Crohn disease DVT (deep venous thrombosis) Hypertension Optic neuritis Pulmonary embolism Family History Father CAD (coronary artery disease) Social History Household Members: Significant Other Housing: House Do you presently have visiting nurse or other home services: No Patient Tobacco Use Status: Never used Tobacco e-Cigarette/Vaping Use: Never Used Use of substances other than those prescribed or required for medical reasons: No Currently Displaying Signs/Symptoms of Drug Intoxication Withdrawal: No Have you been hit, kicked, punched, or otherwise hurt by someone within the past year? If so, by whom?: No Do you feel safe in your current relationship?: Yes Is there a partner from a previous relationship who is making you feel unsafe now?: No Are you made to feel afraid or neglected: Yes Advance Directives: No Healthcare Proxy: No Guardian: No Do you have thoughts of harming others: None Do you have a plan to hurt others: No Plan Recently lost weight without trying: Unsure How much weight loss: Unsure Eating poorly because of decreased appetite: No Nutrition screen score: 4 Nutrition Risks: No Nutritional Risk Patient : No : No Poor oral hygiene: No service: No Sexual orientation: Straight/Heterosexual Meds Allergies Allergy/AdvReac Type Severity Reaction Status Date / Time buprenorphine [From SUBOXONE] Allergy Intermediate weakness Unverified 12/15/19 16:15 naloxone [From SUBOXONE] Allergy Intermediate weakness Unverified 12/15/19 16:15 heparin [HEPARIN] Allergy Unknown UNKNOWN Unverified 12/15/19 16:15 Iodinated Contrast Media Allergy Unknown KIDNEY Unverified 12/15/19 16:15 [IV CONTRAST] FAILURE rivaroxaban [From XARELTO] Allergy Unknown HAIR LOSS Unverified 12/15/19 16:15 AND SWELLING Active Medications: Current Medications Acetaminophen (Acetaminophen 325 Mg Tablet) 650 mg PO Q6H PRN PRN Reason: Headache/Pain Mild Scale (1-3) Al Hydroxide/Mg Hydroxide (Magnesium Hydrox/Alum Hydrox 30 Ml Oral.Susp) 30 ml PO Q6H PRN PRN Reason: Heartburn/Nausea Clonazepam (Clonazepam 0.5 Mg Tablet) 0.5 mg PO BID PRN PRN Reason: anxiety Last Admin: 12/16/21 09:43 Dose: 0.5 mg Cyclobenzaprine HCl (Cyclobenzaprine Hcl 5 Mg Tablet) 5 mg PO DAILY [facility] Dabigatran (Dabigatran Etexilate Mesylate 150 Mg Capsule) 150 mg PO BID [facility] Last Admin: 12/16/21 21:57 Dose: 150 mg Fluticasone Propionate (Fluticasone Propionate Nasal 16 Gm [place]) 1 spray NOSTRIL-B BID PRN PRN Reason: congestion Hydroxyzine HCl (Hydroxyzine Hcl 25 Mg Tablet) 25 mg PO Q6H PRN PRN Reason: Anxiety Magnesium Hydroxide (Milk Of Magnesia 30 Ml Oral.Susp) 30 ml PO DAILY PRN PRN Reason: Constipation Mesalamine (Mesalamine 400 Mg Cap.Drtab.) 800 mg PO TID [facility] Last Admin: 12/16/21 21:57 Dose: 800 mg Multivitamins/Vitamin C (Multivitamin Tablet) 1 tab PO DAILY [facility] Sertraline HCl (Sertraline Hcl 50 Mg Tablet) 50 mg PO DAILY [facility] Trazodone HCl (Trazodone Hcl 50 Mg Tablet) 50 mg PO BEDTIME PRN PRN Reason: Insomnia Last Admin: 12/16/21 00:22 Dose: 50 mg Trazodone HCl (Trazodone Hcl 100 Mg Tablet) 100 mg PO BEDTIME [facility] Last Admin: 12/17/21 00:33 Dose: 100 mg Home Medications Medication Instructions Recorded Confirmed Last Taken Type clonazepam 0.5 mg tablet 1 tab PO BID PRN anxiety 12/15/21 12/15/21 Unknown Hi story cyclobenzaprine 5 mg tablet 1 mg PO DAILY 12/15/21 12/15/21 Unknown History fluticasone propionate 50 1 spray intranasal BID PRN 12/15/21 12/15/21 Unknown History mcg/actuation nasal congestion spray,suspension gabapentin 300 mg capsule 3 cap PO TID 12/15/21 12/15/21 Unknown History losartan 100 1 tab PO DAILY 12/15/21 12/15/21 Unknown History mg-hydrochlorothiazide 25 mg tablet nifedipine 30 mg tablet,extended 1 tab PO DAILY 12/15/21 12/15/21 Unknown History release 24 hr dabigatran etexilate 150 mg See Rx Instructions .Route .COMPLEX 12/16/21 12/16/21 Unknown History capsule (Pradaxa) Results Labs CBC and Chem 7: 12/16/21 11:12 12/16/21 11:12 Labs: Laboratory Results - last 24 hr 12/16/21 12/16/21 12/16/21 08:40 08:40 08:40 MCV MCH MCHC RDW Plt Count MPV Absolute Nucleated RBC Nucleated RBC % (auto) Anion Gap 22 H Estim Creat Clear Calc 85.1 Estimated GFR > 60 POC Glucose Random Glucose Fasting Glucose 67 Estimat Average Glucose 91 Hemoglobin A1c % 4.8 Calcium 9.3 Total Bilirubin 1.0 AST 24 ALT 19 Alkaline Phosphatase 61 Total Protein 7.7 Albumin 4.4 Triglycerides 127 Cholesterol 225 LDL Cholesterol, Calc 171 HDL Cholesterol 29 Vitamin B12 519 Folate 10.9 TSH 2.92 12/16/21 12/16/21 12/16/21 08:52 11:12 11:12 MCV 83.5 MCH 27.7 MCHC 33.1 RDW 13.8 Plt Count 332 MPV 10.8 Absolute Nucleated RBC 0.000 Nucleated RBC % (auto) 0.0 Anion Gap 18 Estim Creat Clear Calc 67.9 Estimated GFR 53 POC Glucose 76 Random Glucose 131 H Fasting Glucose Estimat Average Glucose Hemoglobin A1c % Calcium 9.6 Total Bilirubin 1.0 AST 23 ALT 16 Alkaline Phosphatase 61 Total Protein 7.4 Albumin 4.4 Triglycerides Cholesterol LDL Cholesterol, Calc HDL Cholesterol Vitamin B12 Folate TSH Assessment and Plan (1) Syncope: Status: Acute (2) Orthostatic hypotension: Status: Acute Plan 51-year-old female with past medical history of MS, SLE, hypertension, who was admitted to [facility] for suicidal ideation after she overdosed on her antihypertensives, had a syncopal episode while getting up from a seated position # syncope - likely secondary to orthostatic hypotension - positive orthostatic hypotension with heart rate increasing from 80s to 140 - given 2 L of LR with significant improvement her symptoms as well as blood pressure - I do recommend rechecking orthostatic vitals in a.m., as patient may require further fluids # orthostatic hypotension - likely secondary to her antihypertensive overdose - will hold antihypertensives at this time - recheck orthostatics in a.m. - bolus fluid as needed # , hypertension - hold antihypertensives at this time thank you for this consult, this time will sign off Physical Exam Vital Signs: Last Vital Signs Temp 97.6 F 12/16/21 20:15 Pulse 86 12/17/21 01:39 Resp 18 12/16/21 20:15 BP 128/79 12/17/21 01:39 Pulse Ox 97 12/16/21 20:15 O2 Del Method 12/16/21 21:15 BMI result Body Mass Index 37.3 Const General: cooperative, comfortable, no acute distress, alert and awake [facility] Head: Yes normal to inspection Eyes General: appearance normal, both eyes and all related structures Chest Other: Reproducible chest wall tenderness in the midsternal region Resp Effort & Inspection: normal respiratory effort Auscultation: clear to auscultation bilaterally Cardio Palpation: normal PMI Rate: regular rate Rhythm: regular rhythm GI Other: no tenderness, rebound or guarding Palpation (GI): Soft to palpation Auscultation: normal bowel sounds Skin General skin exam: no rashes or lesions noted Neuro Other: no neurological deficits Cranial nerves: Yes CN's II-XII intact bilaterally Extrem General: Yes normal to inspection
--- NOTE | 2021-12-17 07:00 | CA_ITS ---
Transthoracic Echocardiogram Patient (Last, First, Middle): Shweta Silver J Gender: Female Date of : 1970 Age: 51 Procedure Date: 12/17/2021 Procedure Type: Transthoracic Echocardiogram Location: S3E Height: 160.02 cm Weight: 95.26 kg BSA: 1.97 m2 Heart Rate: 92 bpm BP: 140 / 74 mmHg [employer] Attorney: SB Referring MD: Cesar Lopes DO Symptoms: ekg changes Study Quality: Adequate ECG Rhythm: Sinus Conclusions: - The visually estimated ejection fraction is between 55-60%. There is no evidence of regional wall motion abnormalities. - No obvious valvular pathology seen on this study. Findings Left Ventricle Normal left ventricular cavity size. The left ventricular systolic function is normal. The visually estimated ejection fraction is between 55-60%. There is no evidence of regional wall motion abnormalities. Diastolic function is normal for age. There is mild septal and mild basal asymmetric hypertrophy. Right Ventricle Normal right ventricular cavity size and systolic function. Atria Both atria are normal in size. Aortic Valve There is a normal trileaflet aortic valve. There is no aortic valve stenosis. There is no aortic valve regurgitation. Mitral Valve The mitral valve appears normal. There is no mitral valve regurgitation. There is no mitral valve stenosis. Pulmonic Valve The pulmonic valve is likely normal. Tricuspid Valve There is trace tricuspid valve regurgitation. The pulmonary artery systolic pressure is normal. Great Vessels The asc aorta is normal in size. Venous The inferior vena cava is normal in size and collapses greater than 50% with inspiration. Pericardium/Pleural There is no evidence of pericardial effusion. Prior Study Comparison No significant change compared to prior study dated: 07/29/2016. Recommendations, Care & Conclusions No obvious valvular pathology seen on this study. Measurements 2D Linear Measurements IVSd: 1.21 0.6-0.9/0.6-1.0 cm LVIDd: 4.21 3.9-5.3/4.2-5.9 cm LVIDd Index: 2.14 2.4-3.2/2.2-3.1 cm/m2 LVIDs: 3.04 2.0-3.6 cm LVPWd: 0.75 0.7-1.1 cm LA Diam: 2.80 2.7-3.8/3.0-4.0 cm LAIDs Index: 1.42 1.5-2.3 cm/m2 LV Mass: 166.68 67-162/88-224 g LV Mass Index: 84.61 43-95/49-115 g/m2 LVOT Diam: 2.20 3.0+(-)1.3 cm 2D Systolic Function EF 4C: 61.30 >55% EF 2C: 48.30 >55% EF BiP: 53.80 >55% Mitral Valve MV Pk E: 0.65 MV PK A: 0.73 MV Decel Time: 156.00 E/A: 0.90 E'Lateral: 9.14 E'Medial: 6.64 E/E' Med: 9.70 E/E' Lat: 7.10 PHT: 46.00 MVA PHT: 4.78 Decel [place]: 4.14 Aortic Valve AoV Pk Favio: 1.26 AoV Mn Favio: 0.89 AoV VTI: 0.23 AoV Pk Grad: 6.00 Aov Mn Grad: 4.00 MACO Cont.VTI: 3.13 LVOT LVOT Pk Favio: 1.30 LVOT Mn Favio: 0.89 LVOT VTI: 0.19 LVOT Pk Grad: 7.00 LVOT Mn Grad: 4.00 LVOT Diam: 2.20 LVOT Area: 3.80 Diastolic Function MV Pk E: 0.65 MV Pk A: 0.73 E/A: 0.90 E'Medial: 6.64 E/E' Med: 9.70 E' Laterial: 9.14 E/E' Lat: 7.10 Right Ventricle TAPSE (mm): 16.30 TVS' Favio: 11.20 Tricuspid Valve TR Pk Favio: 2.40 TR Pk Grad: 23.00 RA Press: 3.00 RVSP: 26.00 Great Vessels Aorta Sinus of Valsalva: 3.40 2.0-3.5 cm Ao Asc: 3.10 2.1-3.4 cm Pulmonary Veins Pulm Vein S/D 2.00 Pulmonary Valve PV Pk Favio: 0.92 Peak PV Grad: 3.00 Updated in Other Vendor System with Status of Final Vamsi Haile MD electronically signed on 12/17/2021 10:45:03 AM with status of Final
[2021-12-17 08:30] VITALS: BP 132/74; PULSE 93; RESP 18; TEMP 36.4; O2SAT 96
[2021-12-17] MEDS: Dabigatran Etexilate Mesylate 150 MG CAPSULE PO ×2 (09:21→23:13)
[2021-12-17] MEDS: Sertraline HCL 50 MG TABLET PO (09:21)
[2021-12-17] MEDS: Multivitamin TABLET 1 TAB PO (09:21)
[2021-12-17] MEDS: Mesalamine 400 MG CAP.DRTAB. 800 MG PO ×3 (09:21→23:15)
[2021-12-17] MEDS: Cyclobenzaprine HCl 5 MG TABLET PO ×2 (09:21→23:14)
[2021-12-17 15:05] VITALS: BP 120/68; PULSE 84; RESP 20; TEMP 36.6; O2SAT 94
[2021-12-17] MEDS: Gabapentin 300 MG CAPSULE 900 MG PO ×2 (15:32→21:30)
--- NOTE | 2021-12-17 15:49 | P.PNPSI_ITS ---
Subjective Subjective Date of Service: 12/17/21 Reason For Visit: si Interim History: calm, cooperative. still woozy and unsteady on feet. asking to restart gabapentin, which was DCed after her syncopal episode last night (along with her anti-hypertensive medications). states she slept more soundly last night than prior. feeling lethargic and with cloudy head today. would like to keep meds as they are for now. discuss the events of last night and that they were likely due to her overdose and that she may just need some time to rest in the hospital to get through it. pt is in agreement with that approach. per staff, isolative, withdrawn. lethargic, shaky, dizzy. syncopal episode with orthostatic VS. got 2L IV fluids afterward. did not sleep that well. Mental Status Exam Mental Status Exam Narrative: calm, cooperative. no PMA/PMR. speech nml in rate, loudness. somewhat decreased prosody. nml amount, latency. thoughts linear and logical. affect constricted, normo-intense, non-labile. no SI/HI/AVH expressed. Diagnostics Vital Signs (24Hr): Vital Signs - 24 hr 12/16/21 20:15 12/16/21 21:15 12/16/21 21:20 Temperature 97.6 F Pulse Rate 110 H 94 100 Respiratory Rate 18 Blood Pressure 116/73 92/51 L 103/57 L Pulse Oximetry 97 Oxygen Delivery Method Room Air Room Air 12/16/21 21:16 12/16/21 21:17 12/17/21 01:39 Temperature Pulse Rate 124 H 140 H 86 Respiratory Rate Blood Pressure 109/71 100/67 128/79 Pulse Oximetry Oxygen Delivery Method 12/17/21 08:30 12/17/21 15:05 Temperature 97.6 F 97.9 F Pulse Rate 93 84 Respiratory Rate 18 20 Blood Pressure 132/74 120/68 Pulse Oximetry 96 94 Oxygen Delivery Method Room Air Room Air BMI result Body Mass Index 37.3 Labs Results: 12/16/21 11:12 12/16/21 11:12 Labs: Laboratory Results - last 48 hr 12/15/21 12/15/21 12/15/21 16:34 16:34 16:34 WBC 9.3 RBC 5.45 Hgb 15.0 Hct 45.3 MCV 83.1 MCH 27.5 MCHC 33.1 RDW 13.9 Plt Count 379 MPV 10.6 Immature Gran % (Auto) 0.3 Neut % (Auto) 75.9 H Lymph % (Auto) 16.7 L [place] % (Auto) 5.6 Eos % (Auto) 0.6 Baso % (Auto) 0.9 Lymph # (Auto) 1.6 [place] # (Auto) 0.5 Eos # (Auto) 0.1 Baso # (Auto) 0.1 Abs Immat Gran (auto) 0.03 Absolute Neuts (auto) 7.1 Absolute Nucleated RBC 0.000 Nucleated RBC % (auto) 0.0 PT 13.4 H INR 1.2 H APTT 46.6 H D-Dimer High Sensitivty 179 Sodium 138 Potassium 4.0 Chloride 98 Carbon Dioxide 22 Anion Gap 22 H BUN 14 D Creatinine 1.06 Estim Creat Clear Calc 69.9 Estimated GFR 55 POC Glucose Random Glucose 64 Fasting Glucose Estimat Average Glucose Hemoglobin A1c % Calcium 9.2 Total Bilirubin 1.0 AST 20 ALT 15 Alkaline Phosphatase 59 Total Creatine Kinase 42 Troponin I High Sens Total Protein 7.3 Albumin 4.3 Triglycerides Cholesterol LDL Cholesterol, Calc HDL Cholesterol Lipase 11 Vitamin B12 Folate TSH 12/15/21 12/15/21 12/16/21 16:34 16:50 08:40 WBC RBC Hgb Hct MCV MCH MCHC RDW Plt Count MPV Immature Gran % (Auto) Neut % (Auto) Lymph % (Auto) [place] % (Auto) Eos % (Auto) Baso % (Auto) Lymph # (Auto) [place] # (Auto) Eos # (Auto) Baso # (Auto) Abs Immat Gran (auto) Absolute Neuts (auto) Absolute Nucleated RBC Nucleated RBC % (auto) PT INR APTT D-Dimer High Sensitivty Sodium 137 Potassium 4.3 Chloride 101 Carbon Dioxide 18 L Anion Gap 22 H BUN 10 Creatinine 0.87 Estim Creat Clear Calc 85.1 Estimated GFR > 60 POC Glucose 61 Random Glucose Fasting Glucose 67 Estimat Average Glucose Hemoglobin A1c % Calcium 9.3 Total Bilirubin 1.0 AST 24 ALT 19 Alkaline Phosphatase 61 Total Creatine Kinase Troponin I High Sens 15.0 D Total Protein 7.7 Albumin 4.4 Triglycerides 127 Cholesterol 225 LDL Cholesterol, Calc 171 HDL Cholesterol 29 Lipase Vitamin B12 Folate TSH 2.92 12/16/21 12/16/21 12/16/21 08:40 08:40 08:52 WBC RBC Hgb Hct MCV MCH MCHC RDW Plt Count MPV Immature Gran % (Auto) Neut % (Auto) Lymph % (Auto) [place] % (Auto) Eos % (Auto) Baso % (Auto) Lymph # (Auto) [place] # (Auto) Eos # (Auto) Baso # (Auto) Abs Immat Gran (auto) Absolute Neuts (auto) Absolute Nucleated RBC Nucleated RBC % (auto) PT INR APTT D-Dimer High Sensitivty Sodium Potassium Chloride Carbon Dioxide Anion Gap BUN Creatinine Estim Creat Clear Calc Estimated GFR POC Glucose 76 Random Glucose Fasting Glucose Estimat Average Glucose 91 Hemoglobin A1c % 4.8 Calcium Total Bilirubin AST ALT Alkaline Phosphatase Total Creatine Kinase Troponin I High Sens Total Protein Albumin Triglycerides Cholesterol LDL Cholesterol, Calc HDL Cholesterol Lipase Vitamin B12 519 Folate 10.9 TSH 12/16/21 12/16/21 12/16/21 11:12 11:12 11:12 WBC 7.3 RBC 5.28 Hgb 14.6 Hct 44.1 MCV 83.5 MCH 27.7 MCHC 33.1 RDW 13.8 Plt Count 332 MPV 10.8 Immature Gran % (Auto) Neut % (Auto) Lymph % (Auto) [place] % (Auto) Eos % (Auto) Baso % (Auto) Lymph # (Auto) [place] # (Auto) Eos # (Auto) Baso # (Auto) Abs Immat Gran (auto) Absolute Neuts (auto) Absolute Nucleated RBC 0.000 Nucleated RBC % (auto) 0.0 PT INR APTT D-Dimer High Sensitivty Sodium 136 Potassium 4.1 Chloride 98 Carbon Dioxide 24 Anion Gap 18 BUN 11 Creatinine 1.09 Estim Creat Clear Calc 67.9 Estimated GFR 53 POC Glucose Random Glucose 131 H Fasting Glucose Estimat Average Glucose Hemoglobin A1c % Calcium 9.6 Total Bilirubin 1.0 AST 23 ALT 16 Alkaline Phosphatase 61 Total Creatine Kinase Troponin I High Sens 13.4 Total Protein 7.4 Albumin 4.4 Triglycerides Cholesterol LDL Cholesterol, Calc HDL Cholesterol Lipase Vitamin B12 Folate TSH Imaging Radiology Impressions: ITS Impressions Chest X-Ray 12/14/21 19:13 IMPRESSION: Unremarkable examination. Cervical Spine CT 12/14/21 20:13 IMPRESSION: No acute intracranial process seen. Reversal of cervical lordosis. No acute fracture or dislocation seen. Head CT 12/14/21 20:13 IMPRESSION: No acute intracranial process seen. Reversal of cervical lordosis. No acute fracture or dislocation seen. Medications Medications Current Medications Acetaminophen (Acetaminophen 325 Mg Tablet) 650 mg PO Q6H PRN PRN Reason: Headache/Pain Mild Scale (1-3) Al Hydroxide/Mg Hydroxide (Magnesium Hydrox/Alum Hydrox 30 Ml Oral.Susp) 30 ml PO Q6H PRN PRN Reason: Heartburn/Nausea Clonazepam (Clonazepam 0.5 Mg Tablet) 0.5 mg PO BID PRN PRN Reason: anxiety Last Admin: 12/16/21 09:43 Dose: 0.5 mg Cyclobenzaprine HCl (Cyclobenzaprine Hcl 5 Mg Tablet) 5 mg PO DAILY [facility] Last Admin: 12/17/21 09:21 Dose: 5 mg Dabigatran (Dabigatran Etexilate Mesylate 150 Mg Capsule) 150 mg PO BID [facility] Last Admin: 12/17/21 09:21 Dose: 150 mg Fluticasone Propionate (Fluticasone Propionate Nasal 16 Gm [place]) 1 spray NOSTRIL-B BID PRN PRN Reason: congestion Gabapentin (Gabapentin 300 Mg Capsule) 900 mg PO TID [facility] Last Admin: 12/17/21 15:32 Dose: 900 mg Hydroxyzine HCl (Hydroxyzine Hcl 25 Mg Tablet) 25 mg PO Q6H PRN PRN Reason: Anxiety Magnesium Hydroxide (Milk Of Magnesia 30 Ml Oral.Susp) 30 ml PO DAILY PRN PRN Reason: Constipation Mesalamine (Mesalamine 400 Mg Cap.Drtab.) 800 mg PO TID [facility] Last Admin: 12/17/21 15:32 Dose: 800 mg Multivitamins/Vitamin C (Multivitamin Tablet) 1 tab PO DAILY [facility] Last Admin: 12/17/21 09:21 Dose: 1 tab Sertraline HCl (Sertraline Hcl 50 Mg Tablet) 50 mg PO DAILY [facility] Last Admin: 12/17/21 09:21 Dose: 50 mg Trazodone HCl (Trazodone Hcl 50 Mg Tablet) 50 mg PO BEDTIME PRN PRN Reason: Insomnia Last Admin: 12/16/21 00:22 Dose: 50 mg Trazodone HCl (Trazodone Hcl 100 Mg Tablet) 100 mg PO BEDTIME [facility] Last Admin: 12/17/21 00:33 Dose: 100 mg Allergies Allergies Allergy/AdvReac Type Severity Reaction Status Date / Time buprenorphine [From SUBOXONE] Allergy Intermediate weakness Unverified 12/15/19 16:15 naloxone [From SUBOXONE] Allergy Intermediate weakness Unverified 12/15/19 16:15 heparin [HEPARIN] Allergy Unknown UNKNOWN Unverified 12/15/19 16:15 Iodinated Contrast Media Allergy Unknown KIDNEY Unverified 12/15/19 16:15 [IV CONTRAST] FAILURE rivaroxaban [From XARELTO] Allergy Unknown HAIR LOSS Unverified 12/15/19 16:15 AND SWELLING Assessment & Plan Assessment & Plan (1) Syncope: Status: Acute Code(s): R55 - Syncope and collapse Assessment and Plan: 51-year-old female with past medical history of MS, SLE, hypertension, who [facility] ideation after she overdosed on her antihypertensives, had a syncopal episode while getting up from a seated position # syncope - likely secondary to orthostatic hypotension - positive orthostatic hypotension with heart rate increasing from 80s to 140 - given 2 L of LR with significant improvement her symptoms as well as blood pressure - I do recommend rechecking orthostatic vitals in a.m., as patient may require further fluids (2) Orthostatic hypotension: Status: Acute Code(s): I95.1 - Orthostatic hypotension Assessment and Plan: 51-year-old female with past medical history of MS, SLE, hypertension, who was admitted [facility] for suicidal ideation after she overdosed on her antihypert ensives, had a syncopal episode while getting up from a seated position # orthostatic hypotension - likely secondary to her antihypertensive overdose - will hold antihypertensives at this time - recheck orthostatics in a.m. - bolus fluid as needed # , hypertension - hold antihypertensives at this time (3) Borderline personality disorder: Status: Acute Code(s): F60.3 - Borderline personality disorder (4) PTSD (post-traumatic stress disorder): Status: Acute Code(s): F43.10 - Post-traumatic stress disorder, unspecified (5) SLE (systemic lupus erythematosus): Status: Acute Code(s): M32.9 - Systemic lupus erythematosus, unspecified Plan 12/16: restarted home medications. started zoloft 25 mg NOW and then 50 mg daily for PMDD/chronic anxiety/PTSD. scheduled trazodone 100 at bedtime. 12/17: syncopal episode, got 2L IV fluids, anti-HTN meds being held. no other changes today. slept slightly better last night with trazodone. orthostatic VS this afternoon not concerning. I spent ____25__ minutes with the patient and/or on the patient floor today, greater than?50% of which was spent counseling/coordinating care. Reason for contiued inpatient stay Substantial Risk for: harm to self, inability to function and rapid decompensation
[2021-12-17] MEDS: clonazePAM 0.5 MG TABLET PO ×2 (18:06→23:15)
--- NOTE | 2021-12-17 18:26 | PC.NURSE ---
Patient IV port flushed without resistance. No c/o pain, no sx of infiltrate.
[2021-12-17 23:14] VITALS: BP 118/68; PULSE 96; RESP 18; TEMP 36.7; O2SAT 96
[2021-12-18] MEDS: Acetaminophen 325 MG TABLET 650 MG PO (05:41)
[2021-12-18 06:45] VITALS: BP 106/71; PULSE 114; RESP 19; TEMP 36.5; O2SAT 99
[2021-12-18] MEDS: Mesalamine 400 MG CAP.DRTAB. 800 MG PO ×3 (08:31→20:44)
[2021-12-18] MEDS: Sertraline HCL 50 MG TABLET PO (08:31)
[2021-12-18] MEDS: Dabigatran Etexilate Mesylate 150 MG CAPSULE PO ×2 (08:31→20:44)
[2021-12-18] MEDS: Multivitamin TABLET 1 TAB PO (08:32)
[2021-12-18] MEDS: Gabapentin 300 MG CAPSULE 900 MG PO ×3 (11:27→20:44)
[2021-12-18] MEDS: clonazePAM 0.5 MG TABLET PO (12:37)
[2021-12-18] MEDS: Milk of Magnesia 30 ML ORAL.SUSP PO (13:37)
--- NOTE | 2021-12-18 15:00 | HO.PSYCHPN ---
Subjective Subjective Date of Service: 12/18/21 Reason For Visit: si Interim History: calm, cooperative. still logy. feling very tired, dizzy, weak. willing to stay here until she is feeling physically recovered. asks for POC daily as she reports she sometimes has low FSBS. per staff, isolative. anx 6, dep 3. calm. no SI/HI. hopeful on eves. no AVH. taking meds. c/o dizziness and nausea this morning. had a hard time falling asleep last night. orthostatic VS borderline, will encourage fluids and pull IV access. Mental Status Exam Mental Status Exam Narrative: calm, cooperative. no PMA/PMR. speech nml in rate, loudness. somewhat decreased prosody. nml amount, latency. thoughts linear and logical. affect constricted, normo-intense, non-labile. no SI/HI/AVH expressed. Diagnostics Vital Signs (24Hr): Vital Signs - 24 hr 12/17/21 15:05 12/17/21 23:14 12/18/21 06:45 Temperature 97.9 F 98.1 F 97.7 F Pulse Rate 84 96 114 H Respiratory Rate 20 18 19 Blood Pressure 120/68 118/68 106/71 Pulse Oximetry 94 96 99 Oxygen Delivery Method Room Air Room Air Room Air BMI result Body Mass Index 37.3 Labs Results: 12/16/21 11:12 12/16/21 11:12 Imaging Radiology Impressions: ITS Impressions Chest X-Ray 12/14/21 19:13 IMPRESSION: Unremarkable examination. Cervical Spine CT 12/14/21 20:13 IMPRESSION: No acute intracranial process seen. Reversal of cervical lordosis. No acute fracture or dislocation seen. Head CT 12/14/21 20:13 IMPRESSION: No acute intracranial process seen. Reversal of cervical lordosis. No acute fracture or dislocation seen. Medications Medications Current Medications Acetaminophen (Acetaminophen 325 Mg Tablet) 650 mg PO Q6H PRN PRN Reason: Headache/Pain Mild Scale (1-3) Last Admin: 12/18/21 05:41 Dose: 650 mg Al Hydroxide/Mg Hydroxide (Magnesium Hydrox/Alum Hydrox 30 Ml Oral.Susp) 30 ml PO Q6H PRN PRN Reason: Heartburn/Nausea Clonazepam (Clonazepam 0.5 Mg Tablet) 0.5 mg PO BID PRN PRN Reason: anxiety Last Admin: 12/18/21 12:37 Dose: 0.5 mg Cyclobenzaprine HCl (Cyclobenzaprine Hcl 5 Mg Tablet) 5 mg PO TID PRN PRN Reason: musculoskeletal pain Last Admin: 12/17/21 23:14 Dose: 5 mg Dabigatran (Dabigatran Etexilate Mesylate 150 Mg Capsule) 150 mg PO BID [facility] Last Admin: 12/18/21 08:31 Dose: 150 mg Fluticasone Propionate (Fluticasone Propionate Nasal 16 Gm [place]) 1 spray NOSTRIL-B BID PRN PRN Reason: congestion Gabapentin (Gabapentin 300 Mg Capsule) 900 mg PO TID [facility] Last Admin: 12/18/21 14:56 Dose: 900 mg Hydroxyzine HCl (Hydroxyzine Hcl 25 Mg Tablet) 25 mg PO Q6H PRN PRN Reason: Anxiety Magnesium Hydroxide (Milk Of Magnesia 30 Ml Oral.Susp) 30 ml PO DAILY PRN PRN Reason: Constipation Last Admin: 12/18/21 13:37 Dose: 30 ml Mesalamine (Mesalamine 400 Mg Cap.Drtab.) 800 mg PO TID [facility] Last Admin: 12/18/21 14:56 Dose: 800 mg Multivitamins/Vitamin C (Multivitamin Tablet) 1 tab PO DAILY [facility] Last Admin: 12/18/21 08:32 Dose: 1 tab Sertraline HCl (Sertraline Hcl 50 Mg Tablet) 50 mg PO DAILY [facility] Last Admin: 12/18/21 08:31 Dose: 50 mg Trazodone HCl (Trazodone Hcl 50 Mg Tablet) 50 mg PO BEDTIME PRN PRN Reason: Insomnia Last Admin: 12/16/21 00:22 Dose: 50 mg Trazodone HCl (Trazodone Hcl 100 Mg Tablet) 100 mg PO BEDTIME [facility] Last Admin: 12/17/21 23:13 Dose: 100 mg Allergies Allergies Allergy/AdvReac Type Severity Reaction Status Date / Time naloxone [From SUBOXONE] Allergy Severe weakness Verified 12/18/21 06:50 buprenorphine [From SUBOXONE] AdvReac Severe weakness Verified 12/18/21 06:49 heparin [HEPARIN] AdvReac Severe UNKNOWN Verified 12/18/21 06:51 Iodinated Contrast Media AdvReac Severe KIDNEY Verified 12/18/21 06:51 [IV CONTRAST] FAILURE rivaroxaban [From XARELTO] AdvReac Severe HAIR LOSS Verified 12/18/21 06:52 AND SWELLING Assessment & Plan Assessment & Plan (1) Syncope: Status: Acute Code(s): R55 - Syncope and collapse Assessment and Plan: 51-year-old female with past medical history of MS, SLE, hypertension, who [facility] ideation after she overdosed on her antihypertensives, had a syncopal episode while getting up from a seated position # syncope - likely secondary to orthostatic hypotension - positive orthostatic hypotension with heart rate increasing from 80s to 140 - given 2 L of LR with significant improvement her symptoms as well as blood pressure - I do recommend rechecking orthostatic vitals in a.m., as patient may require further fluids (2) Orthostatic hypotension: Status: Acute Code(s): I95.1 - Orthostatic hypotension Assessment and Plan: 51-year-old female with past medical history of MS, SLE, hypertension, who was [facility] for suicidal ideation after she overdosed on her antihypertensives, had a syncopal episode while getting up from a seated position # orthostatic hypotension - likely secondary to her antihypertensive overdose - will hold antihypertensives at this time - recheck orthostatics in a.m. - bolus fluid as needed # , hypertension - hold antihypertensives at this time (3) Borderline personality disorder: Status: Acute Code(s): F60.3 - Borderline personality disorder (4) PTSD (post-traumatic stress disorder): Status: Acute Code(s): F43.10 - Post-traumatic stress disorder, unspecified (5) SLE (systemic lupus erythematosus): Status: Acute Code(s): M32.9 - Systemic lupus erythematosus, unspecified Plan 12/16: restarted home medications. started zoloft 25 mg NOW and then 50 mg daily for PMDD/chronic anxiety/PTSD. scheduled trazodone 100 at bedtime. 12/17: syncopal episode, got 2L IV fluids, anti-HTN meds being held. no other changes today. slept slightly better last night with trazodone. orthostatic VS this afternoon not concerning. 12/18: remains weak, logy, dizzy. orthostatics borderline, but will pull IV access and encourage PO fluids. continue current management otherwise. awaiting pt to physically recover from overdose's effects on her body. I spent ___20___ minutes with the patient and/or on the patient floor today, greater than?50% of which was spent counseling/coordinating care. Reason for contiued inpatient stay Substantial Risk for: inability to function and rapid decompensation
[2021-12-18] MEDS: Cyclobenzaprine HCl 5 MG TABLET PO (16:59)
[2021-12-18] MEDS: Ibuprofen 600 MG TABLET PO (17:54)
[2021-12-18 19:25] VITALS: BP 102/65; PULSE 94; RESP 16; TEMP 36.6; O2SAT 96
[2021-12-18] MEDS: traZODone HCL 100 MG TABLET PO (20:44)
[2021-12-19] MEDS: clonazePAM 0.5 MG TABLET PO ×2 (03:46→21:36)
[2021-12-19] MEDS: Cyclobenzaprine HCl 5 MG TABLET PO ×3 (06:23→21:35)
[2021-12-19 07:00] VITALS: BMI 34.9
[2021-12-19 08:45] VITALS: BP 118/77; PULSE 84; RESP 18; TEMP 36.6; O2SAT 97
[2021-12-19] MEDS: Fluticasone Propionate 100 MCG BLST.W.DEV 2 PUFF INHALE (08:46)
[2021-12-19] MEDS: Mesalamine 400 MG CAP.DRTAB. 800 MG PO ×3 (08:47→21:35)
[2021-12-19] MEDS: Multivitamin TABLET 1 TAB PO (08:48)
[2021-12-19] MEDS: Dabigatran Etexilate Mesylate 150 MG CAPSULE PO ×2 (08:48→21:35)
[2021-12-19] MEDS: Gabapentin 300 MG CAPSULE 900 MG PO ×3 (08:49→21:36)
[2021-12-19] MEDS: Sertraline HCL 50 MG TABLET PO (08:50)
[2021-12-19] MEDS: Milk of Magnesia 30 ML ORAL.SUSP PO (09:26)
[2021-12-19] MEDS: polyethylene glycoL 3350 17 GM POWD.PACK PO (12:04)
[2021-12-19] MEDS: Capsaicin 0.025% Cream 60 GM TUBE 1 APPL TOPICAL (12:48)
--- NOTE | 2021-12-19 14:42 | HO.PSYCHPN ---
Subjective Subjective Date of Service: 12/19/21 Reason For Visit: si Subjective Notes: Conditional Voluntary Interim History: Pt reports feeling better in that she is not as lightheaded. No ortho HOTN. Pt denies suicidal ideation, describes OD as impulsive, out of rage than suicidality. She explains she has borderline personality disorder and dissociative d/o. She reports she blacked out and does not remember much. She is willing to have SW speak with partner. Taking meds as prescribed. no side effects. Medication Compliance: Yes Side effects from medications: No Review of Systems Review of Systems Yes all other systems are reviewed and are negative Constitutional: Reports as per HPI Eyes: Reports as per HPI Reports as per HPI Cardiovascular: Reports as per HPI, Denies acrocyanosis, Denies cool extremities, Denies chest pain, Denies leg edema, Denies lightheadedness, Reports palpitations and Denies dyspnea Respiratory: Reports as per HPI, Reports no additional respiratory complaints and Denies dyspnea Gastrointestinal: Reports as per HPI and Reports no additional gastrointestinal complaints Musculoskeletal: Reports no additional musculoskeletal complaints and Reports as per HPI Skin/Breast: Reports system reviewed and no additional complaints, except as docu Reports system reviewed and no additional complaints, except as documented and Reports as per HPI Psychiatric: Reports no additional psychiatric complaints and Reports as per HPI Endocrine: Reports no additional endocrine complaints, Reports as per HPI and Reports palpitations Hematologic/Lymphatic: Reports no additional hematologic/lymphatic complaints and Reports as per HPI Allergic/Immunologic: Reports no additional allergic/immunologic complaints and Reports as per HPI Mental Status Exam Mental Status Exam Narrative: calm, cooperative. no PMA/PMR. speech nml in rate, loudness. somewhat decreased prosody. nml amount, latency. thoughts linear and logical. affect constricted, normo-intense, non-labile. no SI/HI/AVH expressed. Diagnostics Vital Signs (24Hr): Vital Signs - 24 hr 12/18/21 19:25 12/19/21 08:45 Temperature 97.9 F 97.8 F Pulse Rate 94 84 Respiratory Rate 16 18 Blood Pressure 102/65 118/77 Pulse Oximetry 96 97 Oxygen Delivery Method Room Air Room Air BMI result Body Mass Index 34.9 Labs Results: 12/16/21 11:12 12/16/21 11:12 Imaging Radiology Impressions: ITS Impressions Chest X-Ray 12/14/21 19:13 IMPRESSION: Unremarkable examination. Cervical Spine CT 12/14/21 20:13 IMPRESSION: No acute intracranial process seen. Reversal of cervical lordosis. No acute fracture or dislocation seen. Head CT 12/14/21 20:13 IMPRESSION: No acute intracranial process seen. Reversal of cervical lordosis. No acute fracture or dislocation seen. Medications Medications Current Medications Acetaminophen (Acetaminophen 325 Mg Tablet) 650 mg PO Q6H PRN PRN Reason: Headache/Pain Mild Scale (1-3) Last Admin: 12/19/21 14:51 Dose: 650 mg Al Hydroxide/Mg Hydroxide (Magnesium Hydrox/Alum Hydrox 30 Ml Oral.Susp) 30 ml PO Q6H PRN PRN Reason: Heartburn/Nausea Capsaicin (Capsaicin 0.025% Cream 60 Gm Tube) 1 appl TOPICAL TID PRN; Protocol PRN Reason: hip pain Last Admin: 12/19/21 12:48 Dose: 1 appl Clonazepam (Clonazepam 0.5 Mg Tablet) 0.5 mg PO BID PRN PRN Reason: anxiety Last Admin: 12/19/21 03:46 Dose: 0.5 mg Cyclobenzaprine HCl (Cyclobenzaprine Hcl 5 Mg Tablet) 5 mg PO TID PRN PRN Reason: musculoskeletal pain Last Admin: 12/19/21 14:51 Dose: 5 mg Dabigatran (Dabigatran Etexilate Mesylate 150 Mg Capsule) 150 mg PO BID [facility] Last Admin: 12/19/21 08:48 Dose: 150 mg Fluticasone Propionate (Fluticasone Propionate Nasal 16 Gm [place]) 1 spray NOSTRIL-B BID PRN PRN Reason: congestion Fluticasone Propionate (Fluticasone Propionate 100 Mcg Blst.W.Dev) 2 puff INHALE RDAILY [facility] Last Admin: 12/19/21 08:46 Dose: 2 puff Gabapentin (Gabapentin 300 Mg Capsule) 900 mg PO TID [facility] Last Admin: 12/19/21 14:43 Dose: 900 mg Hydroxyzine HCl (Hydroxyzine Hcl 25 Mg Tablet) 25 mg PO Q6H PRN PRN Reason: Anxiety Last Admin: 12/19/21 14:51 Dose: 25 mg Ibuprofen (Ibuprofen 600 Mg Tablet) 600 mg PO Q6H PRN PRN Reason: moderate pain Last Admin: 12/18/21 17:54 Dose: 600 mg Magnesium Hydroxide (Milk Of Magnesia 30 Ml Oral.Susp) 30 ml PO DAILY PRN PRN Reason: Constipation Last Admin: 12/19/21 09:26 Dose: 30 ml Mesalamine (Mesalamine 400 Mg Cap.Drtab.) 800 mg PO TID [facility] Last Admin: 12/19/21 14:43 Dose: 800 mg Multivitamins/Vitamin C (Multivitamin Tablet) 1 tab PO DAILY [facility] Last Admin: 12/19/21 08:48 Dose: 1 tab Polyethylene Glycol (Polyethylene Glycol 3350 17 Gm Powd.Pack) 17 gm PO DAILY PRN PRN Reason: Constipation Last Admin: 12/19/21 12:04 Dose: 17 gm Sertraline HCl (Sertraline Hcl 50 Mg Tablet) 50 mg PO DAILY [facility] Last Admin: 12/19/21 08:50 Dose: 50 mg Trazodone HCl (Trazodone Hcl 50 Mg Tablet) 50 mg PO BEDTIME PRN PRN Reason: Insomnia Last Admin: 12/16/21 00:22 Dose: 50 mg Trazodone HCl (Trazodone Hcl 100 Mg Tablet) 100 mg PO BEDTIME [facility] Last Admin: 12/18/21 20:44 Dose: 100 mg Allergies Allergies Allergy/AdvReac Type Severity Reaction Status Date / Time naloxone [From SUBOXONE] Allergy Severe weakness Verified 12/18/21 06:50 buprenorphine [From SUBOXONE] AdvReac Severe weakness Verified 12/18/21 06:49 heparin [HEPARIN] AdvReac Severe UNKNOWN Verified 12/18/21 06:51 Iodinated Contrast Media AdvReac Severe KIDNEY Verified 12/18/21 06:51 [IV CONTRAST] FAILURE rivaroxaban [From XARELTO] AdvReac Severe HAIR LOSS Verified 12/18/21 06:52 AND SWELLING Assessment & Plan Assessment & Plan (1) PTSD (post-traumatic stress disorder): Status: Acute Code(s): F43.10 - Post-traumatic stress disorder, unspecified (2) Syncope: Status: Acute Code(s): R55 - Syncope and collapse Assessment and Plan: 51-year-old female with past medical history of MS, SLE, hypertension, who was admitted to [facility] for suicidal ideation after she overdosed on her antihypertensives, had a syncopal episode while getting up from a seated position # syncope - likely secondary to orthostatic hypotension - positive orthostatic hypotension with heart rate increasing from 80s to 140 - given 2 L of LR with significant improvement her symptoms as well as blood pressure - I do recommend rechecking orthostatic vitals in a.m., as patient may require further fluids (3) Orthostatic hypotension: Status: Acute Code(s): I95.1 - Orthostatic hypotension Assessment and Plan: 51-year-old female with past medical history of MS, SLE, hypertension, who was admitted to [facility] for suicidal ideation after she overdosed on her antihypertensives, had a syncopal episode while getting up from a seated position # orthostatic hypotension - likely secondary to her antihypertensive overdose - will hold antihypertensives at this time - recheck orthostatics in a.m. - bolus fluid as needed # , hypertension - hold antihypertensives at this time (4) Borderline personality disorder: Status: Acute Code(s): F60.3 - Borderline personality disorder (5) SLE (systemic lupus erythematosus): Status: Acute Code(s): M32.9 - Systemic lupus erythematosus, unspecified Plan 12/16: restarted home medications. started zoloft 25 mg NOW and then 50 mg daily for PMDD/chronic anxiety/PTSD. scheduled trazodone 100 at bedtime. 12/17: syncopal episode, got 2L IV fluids, anti-HTN meds being held. no other changes today. slept slightly better last night with trazodone. orthostatic VS this afternoon not concerning. 12/18: remains weak, logy, dizzy. orthostatics borderline, but will pull IV access and encourage PO fluids. continue current management otherwise. awaiting pt to physically recover from overdose's effects on her body. 12/19 continue current medication- less dizziness/ less lightheadedness. no ortho hotn. I spent minutes with the patient and/or on the patient floor today, greater than?50% of which was spent counseling/coordinating care. Reason for contiued inpatient stay Substantial Risk for: harm to self
[2021-12-19] MEDS: hydrOXYzine HCL 25 MG TABLET PO (14:51)
[2021-12-19] MEDS: Acetaminophen 325 MG TABLET 650 MG PO (14:51)
[2021-12-19 18:14] LABS: Appearance Urine Clear; Color Urine Yellow; Glucose Urine UA Negative (Negative); Leukocyte Esterase Urine Negative (Negative); Nitrite Urine Negative (Negative); Specific Gravity - Urine <= 1.005 (1.005-1.025); UMIC TRIGGER UACC YES; Urine Blood Small (1+) (Negative); Urine Ketones Negative (Negative); Urine Protein Negative (Neg-Trace)
[2021-12-19 18:31] LABS: Bacteria Urine None Seen (None Seen); Hyaline Casts Urine 0-2 /LPF (0-2); RBC Urine 0-2 /HPF (0-2); Squamous Epithelial Cell Urine 0-2 /HPF (0-2); WBC Urine 0-5 /HPF (0-5)
[2021-12-19 21:30] VITALS: BP 120/65; PULSE 72; RESP 16; TEMP 36.6; O2SAT 97
[2021-12-19] MEDS: traZODone HCL 100 MG TABLET PO (21:35)
[2021-12-20] MEDS: traZODone HCL 50 MG TABLET PO ×2 (01:15→02:38)
[2021-12-20] MEDS: hydrOXYzine HCL 25 MG TABLET PO (02:37)
[2021-12-20] MEDS: Fluticasone Propionate 100 MCG BLST.W.DEV 2 PUFF INHALE (08:42)
[2021-12-20] MEDS: Mesalamine 400 MG CAP.DRTAB. 800 MG PO (08:44)
[2021-12-20 08:45] VITALS: BP 120/88; PULSE 98; RESP 20; TEMP 36.6; O2SAT 96
[2021-12-20] MEDS: Acetaminophen 325 MG TABLET 650 MG PO (08:45)
[2021-12-20] MEDS: Multivitamin TABLET 1 TAB PO (08:46)
[2021-12-20] MEDS: Cyclobenzaprine HCl 5 MG TABLET PO (08:46)
[2021-12-20] MEDS: clonazePAM 0.5 MG TABLET PO (08:49)
[2021-12-20] MEDS: Sertraline HCL 50 MG TABLET PO (08:50)
[2021-12-20] MEDS: Gabapentin 300 MG CAPSULE 900 MG PO (08:50)
--- NOTE | 2021-12-20 11:23 | PM.PNCARD ---
Subjective Subjective Date of Service: 12/20/21 Interval history: She states that she is feeling better. Heart racing sensation is better. Some random episodes of dizziness. No syncope. No chest pains of cardiac type. [employer] present in the room during evaluation. Review of Systems Review of Systems Yes all other systems are reviewed and are negative Constitutional: Reports as per HPI Eyes: Reports as per HPI Reports as per HPI Cardiovascular: Reports as per HPI, Denies acrocyanosis, Denies cool extremities, Denies chest pain, Denies leg edema, Reports lightheadedness, Denies palpitations and Denies dyspnea Respiratory: Reports as per HPI, Reports no additional respiratory complaints and Denies dyspnea Gastrointestinal: Reports as per HPI and Reports no additional gastrointestinal complaints Genitourinary: Reports as per HPI Musculoskeletal: Reports no additional musculoskeletal complaints and Reports as per HPI Skin/Breast: Reports system reviewed and no additional complaints, except as docu Reports system reviewed and no additional complaints, except as documented and Reports as per HPI Psychiatric: Reports no additional psychiatric complaints and Reports as per HPI Endocrine: Reports no additional endocrine complaints, Reports as per HPI and Denies palpitations Hematologic/Lymphatic: Reports no additional hematologic/lymphatic complaints and Reports as per HPI Allergic/Immunologic: Reports no additional allergic/immunologic complaints and Reports as per HPI Physical Exam Vital Signs: Last Vital Signs Temp 97.9 F 12/20/21 08:45 Pulse 98 12/20/21 08:45 Resp 20 12/20/21 08:45 BP 120/88 12/20/21 08:45 Pulse Ox 96 12/20/21 08:45 O2 Del Method 12/20/21 08:45 BMI result Body Mass Index 34.9 Const General: comfortable and no acute distress Orientation/consciousness: patient oriented x3 HEENT Other: Unremarkable Head: Yes normal to inspection Neck Neck: Yes normal visual inspection Chest Chest palpation & inspection: normal inspection of the chest Resp Auscultation: clear to auscultation bilaterally Cardio Palpation: normal PMI Heart sounds: S1 normal heart sound present, S2 normal heart sound present, no gallops, no murmurs and no rubs GI Palpation (GI): Soft to palpation Back/Spine/Pelvis Other: unremarkable Skin General skin exam: no rashes or lesions noted Neuro General: patient oriented x3 Extrem General: Yes normal to inspection Psych Mental Status: mental status grossly normal Objective Labs and Meds Result diagrams: 12/16/21 11:12 12/16/21 11:12 Lab results: Laboratory Results - last 24 hr 12/19/21 18:00 Urine Color Yellow Urine Appearance Clear Urine pH 6.0 Ur Specific [place] <= 1.005 Urine Protein Negative Urine Glucose (UA) Negative Urine Ketones Negative Urine Blood Small (1+) H Urine Nitrite Negative Ur Leukocyte Esterase Negative Urine RBC 0-2 Urine WBC 0-5 Ur Squamous Epith Cells 0-2 Urine Bacteria None Seen Hyaline Casts 0-2 Progress Note: A&P Assessment and plan (1) Drug overdose: Status: Acute (2) Abnormal EKG: Status: Acute Plan Unremarkable high sensitivity troponin. Echocardiogram with LVEF of 55-60% and no wall motion abnormalities. Otherwise unremarkable. No clear cardiac explanation for the EKG changes. Possibly due to medications/overdose. Can see as an outpatient and perform further evaluation. Possibly stress test. Discussed with patient. She is agreeable to come. Time Spent With Patient Time: Total time spent is greater than 50% in coordination of care (as documented) at patient's floor/unit and/or counseling patient: 25min. Procedures Date of Service Date of Service: 12/20/21
--- NOTE | 2021-12-20 12:38 | PC.NURSE ---
Patient tearful, angry re: interaction w/ social work. Patient states she can be safe on the unit, but is requesting to sign a 3 day notice. Patient states she would like to be discharged, and when she is discharged she will jump off the highest floor. Provider, social work aware.
--- NOTE | 2021-12-20 15:12 | HO.PSYCHPN ---
Subjective Subjective Date of Service: 12/20/21 Reason For Visit: si Interim History: MD attempted to meet with pt but she initially waved MD away, saying, i can't right now. i can't deal with anyone right now. she then asked about discharging today and asserted that she had signed a 3 day notice at admission. MD reviewed chart and there was no such document. RN offered pt 3 day notice and she signed. RN informed MD that pt, after contentious phone call with her boyfriend, said she was going to go to a hotel and jump from the roof. MD declined pt's request to discharge today. per staff, not attending groups. anxious without depression yesterday morning. c/o leg and back pain. visible, social. poor PO intake. eves anxiety 8, depression 8. concerned about SLE flare... had trazodone at 0230, slept until 0630. Mental Status Exam Mental Status Exam Narrative: calm, not cooperative. no PMA/PMR. speech nml in rate, loudness. somewhat decreased prosody. decr amount, nml latency. thoughts linear and logical. affect constricted, normo-intense, non-labile. no SI/HI/AVH expressed to MD, but pt told RN she planned to jump to her from a hotel rooftop.. Diagnostics Vital Signs (24Hr): Vital Signs - 24 hr 12/19/21 21:30 12/20/21 08:45 Temperature 97.8 F 97.9 F Pulse Rate 72 98 Respiratory Rate 16 20 Blood Pressure 120/65 120/88 Pulse Oximetry 97 96 Oxygen Delivery Method Room Air Room Air BMI result Body Mass Index 34.9 Labs Results: 12/16/21 11:12 12/16/21 11:12 Labs: Laboratory Results - last 48 hr 12/19/21 18:00 Urine Color Yellow Urine Appearance Clear Urine pH 6.0 Ur Specific [place] <= 1.005 Urine Protein Negative Urine Glucose (UA) Negative Urine Ketones Negative Urine Blood Small (1+) H Urine Nitrite Negative Ur Leukocyte Esterase Negative Urine RBC 0-2 Urine WBC 0-5 Ur Squamous Epith Cells 0-2 Urine Bacteria None Seen Hyaline Casts 0-2 Imaging Radiology Impressions: ITS Impressions Chest X-Ray 12/14/21 19:13 IMPRESSION: Unremarkable examination. Cervical Spine CT 12/14/21 20:13 IMPRESSION: No acute intracranial process seen. Reversal of cervical lordosis. No acute fracture or dislocation seen. Head CT 12/14/21 20:13 IMPRESSION: No acute intracranial process seen. Reversal of cervical lordosis. No acute fracture or dislocation seen. Medications Medications Current Medications Acetaminophen (Acetaminophen 325 Mg Tablet) 650 mg PO Q6H PRN PRN Reason: Headache/Pain Mild Scale (1-3) Last Admin: 12/20/21 08:45 Dose: 650 mg Al Hydroxide/Mg Hydroxide (Magnesium Hydrox/Alum Hydrox 30 Ml Oral.Susp) 30 ml PO Q6H PRN PRN Reason: Heartburn/Nausea Capsaicin (Capsaicin 0.025% Cream 60 Gm Tube) 1 appl TOPICAL TID PRN; Protocol PRN Reason: hip pain Last Admin: 12/19/21 12:48 Dose: 1 appl Cyclobenzaprine HCl (Cyclobenzaprine Hcl 5 Mg Tablet) 5 mg PO TID PRN PRN Reason: musculoskeletal pain Last Admin: 12/20/21 08:46 Dose: 5 mg Dabigatran (Dabigatran Etexilate Mesylate 150 Mg Capsule) 150 mg PO BID [facility] Last Admin: 12/20/21 13:30 Dose: Not Given Fluticasone Propionate (Fluticasone Propionate Nasal 16 Gm [place]) 1 spray NOSTRIL-B BID PRN PRN Reason: congestion Fluticasone Propionate (Fluticasone Propionate 100 Mcg Blst.W.Dev) 2 puff INHALE RDAILY [facility] Last Admin: 12/20/21 08:42 Dose: 2 puff Gabapentin (Gabapentin 300 Mg Capsule) 900 mg PO TID [facility] Last Admin: 12/20/21 08:50 Dose: 900 mg Hydroxyzine HCl (Hydroxyzine Hcl 25 Mg Tablet) 25 mg PO Q6H PRN PRN Reason: Anxiety Last Admin: 12/20/21 02:37 Dose: 25 mg Ibuprofen (Ibuprofen 600 Mg Tablet) 600 mg PO Q6H PRN PRN Reason: moderate pain Last Admin: 12/18/21 17:54 Dose: 600 mg Magnesium Hydroxide (Milk Of Magnesia 30 Ml Oral.Susp) 30 ml PO DAILY PRN PRN Reason: Constipation Last Admin: 12/19/21 09:26 Dose: 30 ml Mesalamine (Mesalamine 400 Mg Cap.Drtab.) 800 mg PO TID [facility] Last Admin: 12/20/21 08:44 Dose: 800 mg Multivitamins/Vitamin C (Multivitamin Tablet) 1 tab PO DAILY [facility] Last Admin: 12/20/21 08:46 Dose: 1 tab Polyethylene Glycol (Polyethylene Glycol 3350 17 Gm Powd.Pack) 17 gm PO DAILY PRN PRN Reason: Constipation Last Admin: 12/19/21 12:04 Dose: 17 gm Sertraline HCl (Sertraline Hcl 50 Mg Tablet) 50 mg PO DAILY [facility] Last Admin: 12/20/21 08:50 Dose: 50 mg Trazodone HCl (Trazodone Hcl 50 Mg Tablet) 50 mg PO BEDTIME PRN PRN Reason: Insomnia Last Admin: 12/20/21 02:38 Dose: 50 mg Trazodone HCl (Trazodone Hcl 100 Mg Tablet) 100 mg PO BEDTIME [facility] Last Admin: 12/19/21 21:35 Dose: 100 mg Allergies Allergies Allergy/AdvReac Type Severity Reaction Status Date / Time naloxone [From SUBOXONE] Allergy Severe weakness Verified 12/18/21 06:50 buprenorphine [From SUBOXONE] AdvReac Severe weakness Verified 12/18/21 06:49 heparin [HEPARIN] AdvReac Severe UNKNOWN Verified 12/18/21 06:51 Iodinated Contrast Media AdvReac Severe KIDNEY Verified 12/18/21 06:51 [IV CONTRAST] FAILURE rivaroxaban [From XARELTO] AdvReac Severe HAIR LOSS Verified 12/18/21 06:52 AND SWELLING Assessment & Plan Assessment & Plan (1) Drug overdose: Qualifiers: Encounter type: initial encounter Injury intent: intentional self-harm Qualified Code(s): T50.902A - Poisoning by unspecified drugs, medicaments and biological substances, intentional self-harm, initial encounter Status: Acute Code(s): T50.901A - Poisoning by unspecified drugs, medicaments and biological substances, accidental (unintentional), initial encounter (2) Abnormal EKG: Status: Acute Code(s): R94.31 - Abnormal electrocardiogram [ECG] [EKG] (3) PTSD (post-traumatic stress disorder): Status: Acute Code(s): F43.10 - Post-traumatic stress disorder, unspecified (4) Borderline personality disorder: Status: Acute Code(s): F60.3 - Borderline personality disorder Plan 12/16: restarted home medications. started zoloft 25 mg NOW and then 50 mg daily for PMDD/chronic anxiety/PTSD. scheduled trazodone 100 at bedtime. 12/17: syncopal episode, got 2L IV fluids, anti-HTN meds being held.? no other changes today.? slept slightly better last night with trazodone.? orthostatic VS this afternoon not concerning. 12/18: remains weak, logy, dizzy.? orthostatics borderline, but will pull IV access and encourage PO fluids.? continue current management otherwise.? awaiting pt to physically recover from overdose's effects on her body. 12/19: continue current medication- less dizziness/ less lightheadedness. no ortho htn. 12/20: labile, loud fight on phone with boyfriend. asked for discharge with plan to throw herself from the roof of a hotel. signed 3-day notice. continue current mgmt otherwise. I spent ___20___ minutes with the patient and/or on the patient floor today, greater than?50% of which was spent counseling/coordinating care. Reason for contiued inpatient stay Substantial Risk for: harm to self, inability to function and rapid decompensation
--- NOTE | 2021-12-21 06:06 | PC.NURSE ---
Patient wanted to inform nurse that she feels her legs are slightly swollen and that she has a history of blood clots. When talking with patient I did offer her the medication that she normally takes to prevent blood clots but has refused in a protest to being on 5 minute checks.
--- NOTE | 2021-12-21 08:42 | P.PNPSI_ITS ---
Subjective Subjective Date of Service: 12/21/21 Reason For Visit: si Subjective Notes: Conditional Voluntary and 3 Day Healthcare Proxy: No Guardianship: No Interim History: Patient was seen and discussed in rounds today. Records and plans were reviewed. She was upset that she charged and also very upset about the fact that the director of social services spoke to her boyfriend on the phone and she did not want her to do that. She and papers for permission but she states that she did know what she was signing. She has been put on 5 minute checks because of some suicidal threats. She has also not been eating or drinking and her medications. She has been sleeping in naps. She about not caring anymore. She talked at length about her boyfriend's attitude of not caring when she was taking an overdose and coming back and finding her bleeding and being under the of the medications that she had taken. Medication Compliance: No Side effects from medications: No Attending Groups: No Review of Systems Review of Systems Yes all other systems are reviewed and are negative Constitutional: Reports as per HPI Eyes: Reports as per HPI Reports as per HPI Cardiovascular: Reports as per HPI, Denies acrocyanosis, Denies cool extremities, Denies chest pain, Denies leg edema, Denies palpitations and Denies dyspnea Respiratory: Reports as per HPI, Reports no additional respiratory complaints a nd Denies dyspnea Gastrointestinal: Reports as per HPI and Reports no additional gastrointestinal complaints Genitourinary: Reports as per HPI Musculoskeletal: Reports no additional musculoskeletal complaints and Reports as per HPI Skin/Breast: Reports system reviewed and no additional complaints, except as docu Reports system reviewed and no additional complaints, except as documented and Reports as per HPI Psychiatric: Reports no additional psychiatric complaints and Reports as per HPI Endocrine: Reports no additional endocrine complaints, Reports as per HPI and Denies palpitations Hematologic/Lymphatic: Reports no additional hematologic/lymphatic complaints and Reports as per HPI Allergic/Immunologic: Reports no additional allergic/immunologic complaints and Reports as per HPI Diagnostics Vital Signs (24Hr): Vital Signs - 24 hr 12/20/21 08:45 Temperature 97.9 F Pulse Rate 98 Respiratory Rate 20 Blood Pressure 120/88 Pulse Oximetry 96 Oxygen Delivery Method Room Air BMI result Body Mass Index 34.9 Labs Results: 12/16/21 11:12 12/16/21 11:12 Labs: Laboratory Results - last 48 hr 12/19/21 18:00 Urine Color Yellow Urine Appearance Clear Urine pH 6.0 Ur Specific [place] <= 1.005 Urine Protein Negative Urine Glucose (UA) Negative Urine Ketones Negative Urine Blood Small (1+) H Urine Nitrite Negative Ur Leukocyte Esterase Negative Urine RBC 0-2 Urine WBC 0-5 Ur Squamous Epith Cells 0-2 Urine Bacteria None Seen Hyaline Casts 0-2 Imaging Radiology Impressions: ITS Impressions Chest X-Ray 12/14/21 19:13 IMPRESSION: Unremarkable examination. Cervical Spine CT 12/14/21 20:13 IMPRESSION: No acute intracranial process seen. Reversal of cervical lordosis. No acute fracture or dislocation seen. Head CT 12/14/21 20:13 IMPRESSION: No acute intracranial process seen. Reversal of cervical lordosis. No acute fracture or dislocation seen. Medications Medications Current Medications Acetaminophen (Acetaminophen 325 Mg Tablet) 650 mg PO Q6H PRN PRN Reason: Headache/Pain Mild Scale (1-3) Last Admin: 12/20/21 08:45 Dose: 650 mg Al Hydroxide/Mg Hydroxide (Magnesium Hydrox/Alum Hydrox 30 Ml Oral.Susp) 30 ml PO Q6H PRN PRN Reason: Heartburn/Nausea Capsaicin (Capsaicin 0.025% Cream 60 Gm Tube) 1 appl TOPICAL TID PRN; Protocol PRN Reason: hip pain Last Admin: 12/19/21 12:48 Dose: 1 appl Cyclobenzaprine HCl (Cyclobenzaprine Hcl 5 Mg Tablet) 5 mg PO TID PRN PRN Reason: musculoskeletal pain Last Admin: 12/20/21 08:46 Dose: 5 mg Dabigatran (Dabigatran Etexilate Mesylate 150 Mg Capsule) 150 mg PO BID [facility] Last Admin: 12/20/21 22:30 Dose: Not Given Fluticasone Propionate (Fluticasone Propionate Nasal 16 Gm [place]) 1 spray NOSTRIL-B BID PRN PRN Reason: congestion Fluticasone Propionate (Fluticasone Propionate 100 Mcg Blst.W.Dev) 2 puff INHALE RDAILY [facility] Last Admin: 12/20/21 08:42 Dose: 2 puff Gabapentin (Gabapentin 300 Mg Capsule) 900 mg PO TID [facility] Last Admin: 12/20/21 22:30 Dose: Not Given Hydroxyzine HCl (Hydroxyzine Hcl 25 Mg Tablet) 25 mg PO Q6H PRN PRN Reason: Anxiety Last Admin: 12/20/21 02:37 Dose: 25 mg Ibuprofen (Ibuprofen 600 Mg Tablet) 600 mg PO Q6H PRN PRN Reason: moderate pain Last Admin: 12/18/21 17:54 Dose: 600 mg Magnesium Hydroxide (Milk Of Magnesia 30 Ml Oral.Susp) 30 ml PO DAILY PRN PRN Reason: Constipation Last Admin: 12/19/21 09:26 Dose: 30 ml Mesalamine (Mesalamine 400 Mg Cap.Drtab.) 800 mg PO TID [facility] Last Admin: 12/20/21 22:30 Dose: Not Given Multivitamins/Vitamin C (Multivitamin Tablet) 1 tab PO DAILY [facility] Last Admin: 12/20/21 08:46 Dose: 1 tab Polyethylene Glycol (Polyethylene Glycol 3350 17 Gm Powd.Pack) 17 gm PO DAILY PRN PRN Reason: Constipation Last Admin: 12/19/21 12:04 Dose: 17 gm Sertraline HCl (Sertraline Hcl 50 Mg Tablet) 50 mg PO DAILY [facility] Last Admin: 12/20/21 08:50 Dose: 50 mg Trazodone HCl (Trazodone Hcl 50 Mg Tablet) 50 mg PO BEDTIME PRN PRN Reason: Insomnia Last Admin: 12/20/21 02:38 Dose: 50 mg Trazodone HCl (Trazodone Hcl 100 Mg Tablet) 100 mg PO BEDTIME [facility] Last Admin: 12/20/21 22:30 Dose: Not Given Allergies Allergies Allergy/AdvReac Type Severity Reaction Status Date / Time naloxone [From SUBOXONE] Allergy Severe weakness Verified 12/18/21 06:50 buprenorphine [From SUBOXONE] AdvReac Severe weakness Verified 12/18/21 06:49 heparin [HEPARIN] AdvReac Severe UNKNOWN Verified 12/18/21 06:51 Iodinated Contrast Media AdvReac Severe KIDNEY Verified 12/18/21 06:51 [IV CONTRAST] FAILURE rivaroxaban [From XARELTO] AdvReac Severe HAIR LOSS Verified 12/18/21 06:52 AND SWELLING Assessment & Plan Assessment & Plan (1) Drug overdose: Qualifiers: Encounter type: initial encounter Injury intent: intentional self-harm Qualified Code(s): T50.902A - Poisoning by unspecified drugs, medicaments and biological substances, intentional self-harm, initial encounter Status: Acute Code(s): T50.901A - Poisoning by unspecified drugs, medicaments and biological substances, accidental (unintentional), initial encounter (2) Abnormal EKG: Status: Acute Code(s): R94.31 - Abnormal electrocardiogram [ECG] [EKG] (3) PTSD (post-traumatic stress disorder): Status: Acute Code(s): F43.10 - Post-traumatic stress disorder, unspecified (4) Borderline personality disorder: Status: Acute Code(s): F60.3 - Borderline personality disorder Plan 12/16: restarted home medications. started zoloft 25 mg NOW and then 50 mg daily for PMDD/chronic anxiety/PTSD. scheduled trazodone 100 at bedtime. 12/17: syncopal episode, got 2L IV fluids, anti-HTN meds being held.? no other changes today.? slept slightly better last night with trazodone.? orthostatic VS this afternoon not concerning. 12/18: remains weak, logy, dizzy.? orthostatics borderline, but will pull IV access and encourage PO fluids.? continue current management otherwise.? awaiting pt to physically recover from overdose's effects on her body. 12/19: continue current medication- less dizziness/ less lightheadedness. no ortho htn. 12/20: labile, loud fight on phone with boyfriend. asked for discharge with plan to throw herself from the roof of a hotel. signed 3-day notice. continue current mgmt otherwise. 12/21: Continue current regimen and plans. Continue 5 minute checks. Encouraged to eat and drink. Will order labs tomorrow if this continues I spent minutes with the patient and/or on the patient floor today, greater than?50% of which was spent counseling/coordinating care. Reason for contiued inpatient stay Substantial Risk for: harm to self
[2021-12-21 09:30] VITALS: BP 138/74; PULSE 81; RESP 18; TEMP 36.7; O2SAT 99
[2021-12-21] MEDS: Multivitamin TABLET 1 TAB PO (09:40)
[2021-12-21] MEDS: Dabigatran Etexilate Mesylate 150 MG CAPSULE PO ×2 (09:40→20:25)
[2021-12-21] MEDS: Gabapentin 300 MG CAPSULE 900 MG PO ×3 (09:40→20:24)
[2021-12-21] MEDS: Fluticasone Propionate 100 MCG BLST.W.DEV 2 PUFF INHALE (09:41)
[2021-12-21] MEDS: Sertraline HCL 50 MG TABLET PO (09:41)
[2021-12-21] MEDS: Mesalamine 400 MG CAP.DRTAB. 800 MG PO ×3 (09:41→20:25)
[2021-12-21] MEDS: Cyclobenzaprine HCl 5 MG TABLET PO (10:02)
[2021-12-21 10:10] LABS: Glucose, Whole Blood 87 mg/dL (60-115)
--- NOTE | 2021-12-21 12:18 | PC.NURSE ---
At 1140 pt stated she was walking when she heard/felt her right knee pop. RN assessed & pt reported pain on palpation. Provided ice pack and additional pillows to place under her knee, Dr. Indu olson.
[2021-12-21] MEDS: Ibuprofen 600 MG TABLET PO (20:13)
[2021-12-21 20:20] VITALS: BP 160/91; PULSE 86; RESP 18; TEMP 26; O2SAT 97
[2021-12-21] MEDS: traZODone HCL 100 MG TABLET PO (20:24)
[2021-12-21] MEDS: clonazePAM 0.5 MG TABLET PO (20:24)
[2021-12-22] MEDS: Acetaminophen 325 MG TABLET 650 MG PO ×2 (01:06→09:13)
[2021-12-22] MEDS: traZODone HCL 50 MG TABLET PO ×2 (01:06→03:07)
[2021-12-22] MEDS: hydrOXYzine HCL 25 MG TABLET PO ×2 (03:08→21:13)
[2021-12-22 09:02] LABS: Glucose, Whole Blood 93 mg/dL (60-115)
[2021-12-22 09:10] VITALS: BP 124/91; PULSE 97; RESP 18; TEMP 36.5; O2SAT 96
[2021-12-22] MEDS: Sertraline HCL 50 MG TABLET PO (09:12)
[2021-12-22] MEDS: Cyclobenzaprine HCl 5 MG TABLET PO ×3 (09:12→21:13)
[2021-12-22] MEDS: Dabigatran Etexilate Mesylate 150 MG CAPSULE PO ×2 (09:12→21:12)
[2021-12-22] MEDS: Mesalamine 400 MG CAP.DRTAB. 800 MG PO ×3 (09:12→21:12)
[2021-12-22] MEDS: Multivitamin TABLET 1 TAB PO (09:13)
[2021-12-22] MEDS: Gabapentin 300 MG CAPSULE 900 MG PO ×3 (09:13→21:12)
[2021-12-22] MEDS: Fluticasone Propionate 100 MCG BLST.W.DEV 2 PUFF INHALE (09:15)
--- NOTE | 2021-12-22 09:41 | P.PNPSI_ITS ---
Subjective Subjective Date of Service: 12/22/21 Reason For Visit: si Subjective Notes: Conditional Voluntary and 3 Day Healthcare Proxy: No Guardianship: No Interim History: Patient was seen and discussed in rounds today. Records and plans were reviewed. She is doing much better since yesterday morning. She has been pleasant and cooperative. Eating and sleeping adequately. She may have injured her right knee yesterday, getting out of bed. It is swollen and tender in 1 spot and has difficulty walking. A hospitalist consult was placed. She talked about issues of her concern and anger specially about her boyfriend. She denies any side effects. No changes were made today. No SI. Medication Compliance: No Side effects from medications: No Attending Groups: No Review of Systems Review of Systems Right knee pain and difficulty walking Yes all other systems are reviewed and are negative Mental Status Exam Mental Status Exam Narrative: In today's visit she is alert, oriented and pleasant. Normal speech. Good eye contact. Affect is appropriate and varied. No overt signs of depression. She denies any suicidal ideations. No signs of psychosis. Cognitively intact. Judgment is intact Diagnostics Vital Signs (24Hr): Vital Signs - 24 hr 12/21/21 20:20 12/22/21 09:10 Temperature 78.8 F L 97.7 F Pulse Rate 86 97 Respiratory Rate 18 18 Blood Pressure 160/91 H 124/91 H Pulse Oximetry 97 96 Oxygen Delivery Method Room Air BMI result Body Mass Index 34.9 Labs Results: 12/16/21 11:12 12/16/21 11:12 Labs: Laboratory Results - last 48 hr 12/21/21 12/22/21 10:04 08:58 POC Glucose 87 93 Imaging Radiology Impressions: ITS Impressions Chest X-Ray 12/14/21 19:13 IMPRESSION: Unremarkable examination. Cervical Spine CT 12/14/21 20:13 IMPRESSION: No acute intracranial process seen. Reversal of cervical lordosis. No acute fracture or dislocation seen. Head CT 12/14/21 20:13 IMPRESSION: No acute intracranial process seen. Reversal of cervical lordosis. No acute fracture or dislocation seen. Medications Medications Current Medications Acetaminophen (Acetaminophen 325 Mg Tablet) 650 mg PO Q6H PRN PRN Reason: Headache/Pain Mild Scale (1-3) Last Admin: 12/22/21 09:13 Dose: 650 mg Al Hydroxide/Mg Hydroxide (Magnesium Hydrox/Alum Hydrox 30 Ml Oral.Susp) 30 ml PO Q6H PRN PRN Reason: Heartburn/Nausea Capsaicin (Capsaicin 0.025% Cream 60 Gm Tube) 1 appl TOPICAL TID PRN; Protocol PRN Reason: hip pain Last Admin: 12/19/21 12:48 Dose: 1 appl Clonazepam (Clonazepam 0.5 Mg Tablet) 0.5 mg PO BID PRN PRN Reason: Anxiety Last Admin: 12/21/21 20:24 Dose: 0.5 mg Cyclobenzaprine HCl (Cyclobenzaprine Hcl 5 Mg Tablet) 5 mg PO TID PRN PRN Reason: musculoskeletal pain Last Admin: 12/22/21 09:12 Dose: 5 mg Dabigatran (Dabigatran Etexilate Mesylate 150 Mg Capsule) 150 mg PO BID [facility] Last Admin: 12/22/21 09:12 Dose: 150 mg Fluticasone Propionate (Fluticasone Propionate Nasal 16 Gm [place]) 1 spray NOSTRIL-B BID PRN PRN Reason: congestion Fluticasone Propionate (Fluticasone Propionate 100 Mcg Blst.W.Dev) 2 puff INHALE RDAILY [facility] Last Admin: 12/22/21 09:15 Dose: 2 puff Gabapentin (Gabapentin 300 Mg Capsule) 900 mg PO TID [facility] Last Admin: 12/22/21 09:13 Dose: 900 mg Hydroxyzine HCl (Hydroxyzine Hcl 25 Mg Tablet) 25 mg PO Q6H PRN PRN Reason: Anxiety Last Admin: 12/22/21 03:08 Dose: 25 mg Ibuprofen (Ibuprofen 600 Mg Tablet) 600 mg PO Q6H PRN PRN Reason: moderate pain Last Admin: 12/21/21 20:13 Dose: 600 mg Magnesium Hydroxide (Milk Of Magnesia 30 Ml Oral.Susp) 30 ml PO DAILY PRN PRN Reason: Constipation Last Admin: 12/19/21 09:26 Dose: 30 ml Mesalamine (Mesalamine 400 Mg Cap.Drtab.) 800 mg PO TID [facility] Last Admin: 12/22/21 09:12 Dose: 800 mg Multivitamins/Vitamin C (Multivitamin Tablet) 1 tab PO DAILY [facility] Last Admin: 12/22/21 09:13 Dose: 1 tab Polyethylene Glycol (Polyethylene Glycol 3350 17 Gm Powd.Pack) 17 gm PO DAILY PRN PRN Reason: Constipation Last Admin: 12/19/21 12:04 Dose: 17 gm Sertraline HCl (Sertraline Hcl 50 Mg Tablet) 50 mg PO DAILY [facility] Last Admin: 12/22/21 09:12 Dose: 50 mg Trazodone HCl (Trazodone Hcl 50 Mg Tablet) 50 mg PO BEDTIME PRN PRN Reason: Insomnia Last Admin: 12/22/21 03:07 Dose: 50 mg Trazodone HCl (Trazodone Hcl 100 Mg Tablet) 100 mg PO BEDTIME [facility] Last Admin: 12/21/21 20:24 Dose: 100 mg Allergies Allergies Allergy/AdvReac Type Severity Reaction Status Date / Time naloxone [From SUBOXONE] Allergy Severe weakness Verified 12/18/21 06:50 buprenorphine [From SUBOXONE] AdvReac Severe weakness Verified 12/18/21 06:49 heparin [HEPARIN] AdvReac Severe UNKNOWN Verified 12/18/21 06:51 Iodinated Contrast Media AdvReac Severe KIDNEY Verified 12/18/21 06:51 [IV CONTRAST] FAILURE rivaroxaban [From XARELTO] AdvReac Severe HAIR LOSS Verified 12/18/21 06:52 AND SWELLING Assessment & Plan Assessment & Plan (1) Drug overdose: Qualifiers: Encounter type: initial encounter Injury intent: intentional self-harm Qualified Code(s): T50.902A - Poisoning by unspecified drugs, medicaments and biological substances, intentional self-harm, initial encounter Status: Acute Code(s): T50.901A - Poisoning by unspecified drugs, medicaments and biological substances, accidental (unintentional), initial encounter (2) Abnormal EKG: Status: Acute Code(s): R94.31 - Abnormal electrocardiogram [ECG] [EKG] (3) PTSD (post-traumatic stress disorder): Status: Acute Code(s): F43.10 - Post-traumatic stress disorder, unspecified (4) Borderline personality disorder: Status: Acute Code(s): F60.3 - Borderline personality disorder Plan 12/16: restarted home medications. started zoloft 25 mg NOW and then 50 mg daily for PMDD/chronic anxiety/PTSD. scheduled trazodone 100 at bedtime. 12/17: syncopal episode, got 2L IV fluids, anti-HTN meds being held.? no other changes today.? slept slightly better last night with trazodone.? orthostatic VS this afternoon not concerning. 12/18: remains weak, logy, dizzy.? orthostatics borderline, but will pull IV access and encourage PO fluids.? continue current management otherwise.? awaiting pt to physically recover from overdose's effects on her body. 12/19: continue current medication- less dizziness/ less lightheadedness. no ortho htn. 12/20: labile, loud fight on phone with boyfriend. asked for discharge with plan to throw herself from the roof of a hotel. signed 3-day notice. continue current mgmt otherwise. 12/21: Continue current regimen and plans. Continue 5 minute checks. Encourage d to eat and drink. Will order labs tomorrow if this continues 12/22: Continue current regimen and plans. Hospitalist consult for right knee injury I spent minutes with the patient and/or on the patient floor today, greater than?50% of which was spent counseling/coordinating care. Reason for contiued inpatient stay Substantial Risk for: med/psych decompensation
[2021-12-22] MEDS: clonazePAM 0.5 MG TABLET PO ×2 (09:43→21:13)
--- NOTE | 2021-12-22 13:46 | P.CONHOSP_ITS ---
History of Present Illness Data of Consult Service Date: 12/22/21 Primary Care Provider: Hugh Ng MD [facility] Reason for consult: right knee pain 51 year old female with history of SLE, orthostatic hypotention, borderline personality d/o, ptsd, opioid use d/o on suboxone, and history recurrent PE on eliquis admitted to psychiatry with consult ordered for right knee pain ongoing since yesterday evening. The patient stated she was getting into bed with left foot planted on floor leaning on right leg in butterfly position on the bed when she heard/felt a pop in the knee. Since then there has been increased swelling, some ecchymosis in lateral aspect of knee, and difficult weight bearing. Reports swelling and pain primarily in suprapatellar aspect of knee. Reports 8/10 pain without radiation. No history knee injury/surgery. No paresthesias. Review of Systems Review of Systems: General: No fevers, malaise, unintentional weight loss Cardiovascular: No chest pain, palpitations, or leg edema Respiratory: No shortness of breath, wheezing, cough MSK: +right knee pain/swelling Neuro: No headaches, weakness, paresthesias Skin: No rashes or lesions [facility] Medical History Crohn disease DVT (deep venous thrombosis) Hypertension Optic neuritis Pulmonary embolism Family History Father CAD (coronary artery disease) Social History Household Members: Significant Other Housing: House Do you presently have visiting nurse or other home services: No Patient Tobacco Use Status: Never used Tobacco e-Cigarette/Vaping Use: Never Used Use of substances other than those prescribed or required for medical reasons: No Currently Displaying Signs/Symptoms of Drug Intoxication Withdrawal: No Have you been hit, kicked, punched, or otherwise hurt by someone within the past year? If so, by whom?: No Do you feel safe in your current relationship?: Yes Is there a partner from a previous relationship who is making you feel unsafe now?: No Are you made to feel afraid or neglected: Yes Advance Directives: No Healthcare Proxy: No Guardian: No Do you have thoughts of harming others: None Do you have a plan to hurt others: No Plan Recently lost weight without trying: Unsure How much weight loss: Unsure Eating poorly because of decreased appetite: No Nutrition screen score: 4 Nutrition Risks: No Nutritional Risk Patient : No : No Poor oral hygiene: No service: No Sexual orientation: Straight/Heterosexual Meds Allergies Allergy/AdvReac Type Severity Reaction Status Date / Time naloxone [From SUBOXONE] Allergy Severe weakness Verified 12/18/21 06:50 buprenorphine [From SUBOXONE] AdvReac Severe weakness Verified 12/18/21 06:49 heparin [HEPARIN] AdvReac Severe UNKNOWN Verified 12/18/21 06:51 Iodinated Contrast Media AdvReac Severe KIDNEY Verified 12/18/21 06:51 [IV CONTRAST] FAILURE rivaroxaban [From XARELTO] AdvReac Severe HAIR LOSS Verified 12/18/21 06:52 AND SWELLING Active Medications: Current Medications Acetaminophen (Acetaminophen 325 Mg Tablet) 650 mg PO Q6H PRN PRN Reason: Headache/Pain Mild Scale (1-3) Last Admin: 12/22/21 09:13 Dose: 650 mg Al Hydroxide/Mg Hydroxide (Magnesium Hydrox/Alum Hydrox 30 Ml Oral.Susp) 30 ml PO Q6H PRN PRN Reason: Heartburn/Nausea Capsaicin (Capsaicin 0.025% Cream 60 Gm Tube) 1 appl TOPICAL TID PRN; Protocol PRN Reason: hip pain Last Admin: 12/19/21 12:48 Dose: 1 appl Clonazepam (Clonazepam 0.5 Mg Tablet) 0.5 mg PO BID PRN PRN Reason: Anxiety Last Admin: 12/22/21 09:43 Dose: 0.5 mg Cyclobenzaprine HCl (Cyclobenzaprine Hcl 5 Mg Tablet) 5 mg PO TID PRN PRN Reason: musculoskeletal pain Last Admin: 12/22/21 09:12 Dose: 5 mg Dabigatran (Dabigatran Etexilate Mesylate 150 Mg Capsule) 150 mg PO BID [facility] Last Admin: 12/22/21 09:12 Dose: 150 mg Fluticasone Propionate (Fluticasone Propionate Nasal 16 Gm [place]) 1 spray NOSTRIL-B BID PRN PRN Reason: congestion Fluticasone Propionate (Fluticasone Propionate 100 Mcg Blst.W.Dev) 2 puff INHALE RDAILY [facility] Last Admin: 12/22/21 09:15 Dose: 2 puff Gabapentin (Gabapentin 300 Mg Capsule) 900 mg PO TID [facility] Last Admin: 12/22/21 09:13 Dose: 900 mg Hydroxyzine HCl (Hydroxyzine Hcl 25 Mg Tablet) 25 mg PO Q6H PRN PRN Reason: Anxiety Last Admin: 12/22/21 03:08 Dose: 25 mg Ibuprofen (Ibuprofen 600 Mg Tablet) 600 mg PO Q6H PRN PRN Reason: moderate pain Last Admin: 12/21/21 20:13 Dose: 600 mg Lidocaine (Lidocaine 5 % Ointment 35 Gm) 1 appl TOPICAL Q6H PRN; Protocol PRN Reason: right knee pain Magnesium Hydroxide (Milk Of Magnesia 30 Ml Oral.Susp) 30 ml PO DAILY PRN PRN Reason: Constipation Last Admin: 12/19/21 09:26 Dose: 30 ml Mesalamine (Mesalamine 400 Mg Cap.Drtab.) 800 mg PO TID [facility] Last Admin: 12/22/21 09:12 Dose: 800 mg Multivitamins/Vitamin C (Multivitamin Tablet) 1 tab PO DAILY [facility] Last Admin: 12/22/21 09:13 Dose: 1 tab Polyethylene Glycol (Polyethylene Glycol 3350 17 Gm Powd.Pack) 17 gm PO DAILY PRN PRN Reason: Constipation Last Admin: 12/19/21 12:04 Dose: 17 gm Sertraline HCl (Sertraline Hcl 50 Mg Tablet) 50 mg PO DAILY [facility] Last Admin: 12/22/21 09:12 Dose: 50 mg Trazodone HCl (Trazodone Hcl 50 Mg Tablet) 50 mg PO BEDTIME PRN PRN Reason: Insomnia Last Admin: 12/22/21 03:07 Dose: 50 mg Trazodone HCl (Trazodone Hcl 100 Mg Tablet) 100 mg PO BEDTIME [facility] Last Admin: 12/21/21 20:24 Dose: 100 mg Home Medications Medication Instructions Recorded Confirmed Last Taken Type clonazepam 0.5 mg tablet 1 tab PO BID PRN anxiety 12/15/21 12/15/21 Unknown History cyclobenzaprine 5 mg tablet 1 mg PO DAILY 12/15/21 12/15/21 Unknown History fluticasone propionate 50 1 spray intranasal BID PRN 12/15/21 12/15/21 Unknown History mcg/actuation nasal congestion spray,suspension gabapentin 300 mg capsule 3 cap PO TID 12/15/21 12/15/21 Unknown History losartan 100 1 tab PO DAILY 12/15/21 12/15/21 Unknown History mg-hydrochlorothiazide 25 mg tablet nifedipine 30 mg tablet,extended 1 tab PO DAILY 12/15/21 12/15/21 Unknown History release 24 hr dabigatran etexilate 150 mg See Rx Instructions .Route .COMPLEX 12/16/21 12/16/21 Unknown History capsule (Pradaxa) Physical Exam Vital Signs and Narrative: Vital Signs: Last Vital Signs Temp 97.7 F 12/22/21 09:10 Pulse 97 12/22/21 09:10 Resp 18 12/22/21 09:10 BP 124/91 H 12/22/21 09:10 Pulse Ox 96 12/22/21 09:10 O2 Del Method 12/21/21 20:20 BMI result Body Mass Index 34.9 Constitutional - Awake and Alert, No apparent distress Eyes - PERRLA, EOMI Cardiovascular - S1S2, RRR, No edema Respiratory - Normal lung expansion, Normal respiratory effort, No respiratory distress, CTA bilaterally Gastrointestinal - NT / ND; +BS; No rebound or guarding Extremities - no calf tenderness bilaterally, no swelling Musculoskeletal - Right knee- diffuse swelling with ecchymosis in lateral aspect knee. Quadriceps tendon attachment not palpable with palpable tissue swelling distal aspect of quadricep muscle. Tenderness diffusely over anterior knee, most prominent superior to the knee in the distal aspect of quadriceps muscles. Limi michael ROM. Exam limited due to patient discomfort Skin - Warm/Dry Neurological - Alert & oriented x3, No sensory deficit. Strength not assessed d/t patient discomfort Psychological - Appropriate affect Results Labs CBC and Chem 7: 12/16/21 11:12 12/16/21 11:12 Labs: Laboratory Results - last 24 hr 12/22/21 08:58 POC Glucose 93 Assessment and Plan (1) Borderline personality disorder: Status: Acute (2) PTSD (post-traumatic stress disorder): Status: Acute (3) Right knee pain: Status: Acute Plan 51 year old female with history of SLE, orthostatic hypotention, borderline personality d/o, ptsd, opioid use d/o on suboxone, and history recurrent PE on eliquis admitted to psychiatry with consult ordered for right knee pain. 1- PTSD/Borderline personality disorder -Plan per psychiatry 2- Acute right knee pain -Concern for tendon vs ligamentous injury based on exam and mechanism of inury. Pt also heard/felt pop -Xray knee ordered -Ortho consulted -Tylenol prn pain. Limit use of ibuprofen d/t eliquis use. Lidocaine gel. Pt on suboxone -Compression bandage and ice packs advised. Elevate leg -Crutches ordered for partial weight bearing Will continue to follow for imaging results. Ortho to evaluate patient further.
[2021-12-22] MEDS: Ibuprofen 600 MG TABLET PO (15:55)
[2021-12-22] MEDS: Lidocaine 5 % Ointment 35 GM 1 APPL TOPICAL (16:00)
--- NOTE | 2021-12-22 16:41 | PM.EVENT ---
Event Note Date of Service: 12/22/21 Event Note: X-Rays of the right knee are negative for any acute fracture, dislocation, or joint effusion no orthopedic intervention is needed at this time. Knee immobilzer if needed for pain and support.
--- NOTE | 2021-12-22 16:46 | PC.NURSE ---
Spoke to screw supervisor Angella/Maria G who states she is unable to provide a sitter for patient therefore due to our own safety protocol can not start with leslee wrap. TINO Cohn informed. Rea suggests a sleeve or any sort of elastic bandage. Spoke to screw supervisor Hortensia who will discuss further with Angella to see what may be available for patient.
[2021-12-22 20:30] VITALS: BP 120/82; PULSE 84; RESP 16; TEMP 36.3; O2SAT 98
[2021-12-22] MEDS: traZODone HCL 100 MG TABLET PO (21:12)
[2021-12-23] MEDS: hydrOXYzine HCL 25 MG TABLET PO ×2 (04:24→22:10)
--- NOTE | 2021-12-23 08:27 | PM.CNOR ---
History of Present Illness HPI Consult date: 12/23/21 Chief complaint: si Narrative: Patient currently has been admitted to the psychiatric unit on the 3rd floor. The patient reported that on 12/21/2021 the patient was getting into bed when she felt a popping sensation on the anterior aspect of the knee with associated swelling. Orthopedics was then consulted for further evaluation and treatment. Review of Systems Review of Systems: Yes all other systems are reviewed and are negative PMFSH Past Medical History Medical History Crohn disease DVT (deep venous thrombosis) Hypertension Optic neuritis Pulmonary embolism Family History Family History Father CAD (coronary artery disease) Social History Social History Household Members: Significant Other Housing: House Do you presently have visiting nurse or other home services: No Patient Tobacco Use Status: Never used Tobacco e-Cigarette/Vaping Use: Never Used Use of substances other than those prescribed or required for medical reasons: No Currently Displaying Signs/Symptoms of Drug Intoxication Withdrawal: No Have you been hit, kicked, punched, or otherwise hurt by someone within the past year? If so, by whom?: No Do you feel safe in your current relationship?: Yes Is there a partner from a previous relationship who is making you feel unsafe now?: No Are you made to feel afraid or neglected: Yes Advance Directives: No Healthcare Proxy: No Guardian: No Do you have thoughts of harming others: None Do you have a plan to hurt others: No Plan Recently lost weight without trying: Unsure How much weight loss: Unsure Eating poorly because of decreased appetite: No Nutrition screen score: 4 Nutrition Risks: No Nutritional Risk Patient : No : No Poor oral hygiene: No service: No Sexual orientation: Straight/Heterosexual Meds Allergies Allergy/AdvReac Type Severity Reaction Status Date / Time naloxone [From SUBOXONE] Allergy Severe weakness Verified 12/18/21 06:50 buprenorphine [From SUBOXONE] AdvReac Severe weakness Verified 12/18/21 06:49 heparin [HEPARIN] AdvReac Severe UNKNOWN Verified 12/18/21 06:51 Iodinated Contrast Media AdvReac Severe KIDNEY Verified 12/18/21 06:51 [IV CONTRAST] FAILURE rivaroxaban [From XARELTO] AdvReac Severe HAIR LOSS Verified 12/18/21 06:52 AND SWELLING Active Medications: Current Medications Acetaminophen (Acetaminophen 325 Mg Tablet) 650 mg PO Q6H PRN PRN Reason: Headache/Pain Mild Scale (1-3) Last Admin: 12/22/21 09:13 Dose: 650 mg Al Hydroxide/Mg Hydroxide (Magnesium Hydrox/Alum Hydrox 30 Ml Oral.Susp) 30 ml PO Q6H PRN PRN Reason: Heartburn/Nausea Capsaicin (Capsaicin 0.025% Cream 60 Gm Tube) 1 appl TOPICAL TID PRN; Protocol PRN Reason: hip pain Last Admin: 12/19/21 12:48 Dose: 1 appl Clonazepam (Clonazepam 0.5 Mg Tablet) 0.5 mg PO BID PRN PRN Reason: Anxiety Last Admin: 12/22/21 21:13 Dose: 0.5 mg Cyclobenzaprine HCl (Cyclobenzaprine Hcl 5 Mg Tablet) 5 mg PO TID PRN PRN Reason: musculoskeletal pain Last Admin: 12/22/21 21:13 Dose: 5 mg Dabigatran (Dabigatran Etexilate Mesylate 150 Mg Capsule) 150 mg PO BID [facility] Last Admin: 12/22/21 21:12 Dose: 150 mg Fluticasone Propionate (Fluticasone Propionate Nasal 16 Gm [place]) 1 spray NOSTRIL-B BID PRN PRN Reason: congestion Fluticasone Propionate (Fluticasone Propionate 100 Mcg Blst.W.Dev) 2 puff INHALE RDAILY [facility] Last Admin: 12/22/21 09:15 Dose: 2 puff Gabapentin (Gabapentin 300 Mg Capsule) 900 mg PO TID [facility] Last Admin: 12/22/21 21:12 Dose: 900 mg Hydroxyzine HCl (Hydroxyzine Hcl 25 Mg Tablet) 25 mg PO Q6H PRN PRN Reason: Anxiety Last Admin: 12/23/21 04:24 Dose: 25 mg Ibuprofen (Ibuprofen 600 Mg Tablet) 600 mg PO Q6H PRN PRN Reason: moderate pain Last Admin: 12/22/21 15:55 Dose: 600 mg Lidocaine (Lidocaine 5 % Ointment 35 Gm) 1 appl TOPICAL Q6H PRN; Protocol PRN Reason: right knee pain Last Admin: 12/22/21 16:00 Dose: 1 appl Magnesium Hydroxide (Milk Of Magnesia 30 Ml Oral.Susp) 30 ml PO DAILY PRN PRN Reason: Constipation Last Admin: 12/19/21 09:26 Dose: 30 ml Mesalamine (Mesalamine 400 Mg Cap.Drtab.) 800 mg PO TID [facility] Last Admin: 12/22/21 21:12 Dose: 800 mg Multivitamins/Vitamin C (Multivitamin Tablet) 1 tab PO DAILY [facility] Last Admin: 12/22/21 09:13 Dose: 1 tab Polyethylene Glycol (Polyethylene Glycol 3350 17 Gm Powd.Pack) 17 gm PO DAILY PRN PRN Reason: Constipation Last Admin: 12/19/21 12:04 Dose: 17 gm Sertraline HCl (Sertraline Hcl 50 Mg Tablet) 50 mg PO DAILY [facility] Last Admin: 12/22/21 09:12 Dose: 50 mg Trazodone HCl (Trazodone Hcl 50 Mg Tablet) 50 mg PO BEDTIME PRN PRN Reason: Insomnia Last Admin: 12/22/21 03:07 Dose: 50 mg Trazodone HCl (Trazodone Hcl 100 Mg Tablet) 100 mg PO BEDTIME [facility] Last Admin: 12/22/21 21:12 Dose: 100 mg Home Medications Medication Instructions Recorded Confirmed Last Taken Type clonazepam 0.5 mg tablet 1 tab PO BID PRN anxiety 12/15/21 12/15/21 Unknown History cyclobenzaprine 5 mg tablet 1 mg PO DAILY 12/15/21 12/15/21 Unknown History fluticasone propionate 50 1 spray intranasal BID PRN 12/15/21 12/15/21 Unknown History mcg/actuation nasal congestion spray,suspension gabapentin 300 mg capsule 3 cap PO TID 12/15/21 12/15/21 Unknown History losartan 100 1 tab PO DAILY 12/15/21 12/15/21 Unknown History mg-hydrochlorothiazide 25 mg tablet nifedipine 30 mg tablet,extended 1 tab PO DAILY 12/15/21 12/15/21 Unknown History release 24 hr dabigatran etexilate 150 mg See Rx Instructions .Route .COMPLEX 12/16/21 12/16/21 Unknown History capsule (Pradaxa) Physical Exam Vital Signs: Vital Signs: Last Vital Signs Temp 97.4 F 12/22/21 20:30 Pulse 84 12/22/21 20:30 Resp 16 12/22/21 20:30 BP 120/82 12/22/21 20:30 Pulse Ox 98 12/22/21 20:30 O2 Del Method 12/22/21 20:30 BMI result Body Mass Index 34.9 Const: General: cooperative, healthy appearing and no acute distress Resp: Effort & Inspection: normal respiratory effort and able to speak in complete sentences Cardio: Rate: regular rate Peripheral pulses: Peripheral pulses 2+ throughout GI: Palpation (GI): Soft to palpation Skin: Lesions: no lesions Rashes: no rashes Extrem: Other: Right knee small effusion mostly located in the suprapatellar pouch. Able to demonstrate full extension and flexion with mild difficulty. Able to perform SLR. Tenderness with patella grind. NVI. Results Labs Result Diagrams: 12/16/21 11:12 12/16/21 11:12 Labs: H & H 12/14/21 12/15/21 12/16/21 Range/Units 20:15 16:34 11:12 Hgb 14.8 15.0 14.6 (12.0-16.0) g/dl Hct 43.7 45.3 44.1 (37.0-47.0) % Coagulation 12/14/21 12/15/21 Range/Units 20:15 16:34 INR 1.2 H 1.2 H (0.9-1.1) All other labs normal. Assessment and Plan (1) Right knee pain: Status: Acute Ms. Silver is a 51yo female who states that she was getting into bed the evening of 12/20/21 when she felt a pop in her right knee. X-rays obtained reveal no acute fracture, dislocation, or joint effusion. Findings on physical exam are associated with patella subluxation. Patient was educated on the importance of knee ROM and exercises demonstrated to her during bedside consultation. She may use a knee immobilizer for comfort but should be coming out regularly to perform ROM exercises. Physical therapy consult will also be placed. She may followup out patient if needed, no additional orthopedic intervention is needed at this time. Procedures Date of Service Date of Service: 12/23/21
[2021-12-23] MEDS: Cyclobenzaprine HCl 5 MG TABLET PO ×2 (08:49→22:10)
[2021-12-23] MEDS: Dabigatran Etexilate Mesylate 150 MG CAPSULE PO ×2 (08:49→22:09)
[2021-12-23] MEDS: Fluticasone Propionate 100 MCG BLST.W.DEV 2 PUFF INHALE (08:49)
[2021-12-23] MEDS: Sertraline HCL 50 MG TABLET PO (08:50)
[2021-12-23] MEDS: Multivitamin TABLET 1 TAB PO (08:50)
[2021-12-23] MEDS: Mesalamine 400 MG CAP.DRTAB. 800 MG PO ×3 (08:50→22:09)
[2021-12-23 09:20] VITALS: BP 118/79; PULSE 84; RESP 16; TEMP 36.8; O2SAT 99
[2021-12-23] MEDS: Gabapentin 300 MG CAPSULE 900 MG PO ×3 (09:42→22:09)
--- NOTE | 2021-12-23 12:30 | HO.PSYCHPN ---
Subjective Subjective Date of Service: 12/23/21 Reason For Visit: si Interim History: calm, cooperative. in a cheery mood. states that discussions with RN Kelly over w/e changed her perspective and she is feeling far better than thursday. no SI, very angry with BF still and with SW here for calling him on the phone last week instead of having him come in. she no longer wants him to come in, however, and is in fact thinking of ending their relationship once she leaves the hospital and asking him to leave the house. feeling better physically, not quite ready to leave the hospital. agrees to plan for thursday but take it day by day the next 2 days. aware in order to stay past thursday she will need to rescind her three-day notice. Mental Status Exam Mental Status Exam Narrative: In today's visit she is alert, oriented and pleasant. Normal speech. Good eye contact. Affect is appropriate and varied. No overt signs of depression. She denies any suicidal ideations. No signs of psychosis. Cognitively intact. Judgment is intact Diagnostics Vital Signs (24Hr): Vital Signs - 24 hr 12/22/21 20:30 12/23/21 09:20 Temperature 97.4 F 98.3 F Pulse Rate 84 84 Respiratory Rate 16 16 Blood Pressure 120/82 118/79 Pulse Oximetry 98 99 Oxygen Delivery Method Room Air Room Air BMI result Body Mass Index 34.9 Labs Results: 12/16/21 11:12 12/16/21 11:12 Labs: Laboratory Results - last 48 hr 12/22/21 08:58 POC Glucose 93 Imaging Radiology Impressions: ITS Impressions Chest X-Ray 12/14/21 19:13 IMPRESSION: Unremarkable examination. Cervical Spine CT 12/14/21 20:13 IMPRESSION: No acute intracranial process seen. Reversal of cervical lordosis. No acute fracture or dislocation seen. Head CT 12/14/21 20:13 IMPRESSION: No acute intracranial process seen. Reversal of cervical lordosis. No acute fracture or dislocation seen. Knee X-Ray 12/22/21 14:02 IMPRESSION: No significant osseous changes to explain patient's pain symptoms. Medications Medications Current Medications Acetaminophen (Acetaminophen 325 Mg Tablet) 650 mg PO Q6H PRN PRN Reason: Headache/Pain Mild Scale (1-3) Last Admin: 12/22/21 09:13 Dose: 650 mg Al Hydroxide/Mg Hydroxide (Magnesium Hydrox/Alum Hydrox 30 Ml Oral.Susp) 30 ml PO Q6H PRN PRN Reason: Heartburn/Nausea Capsaicin (Capsaicin 0.025% Cream 60 Gm Tube) 1 appl TOPICAL TID PRN; Protocol PRN Reason: hip pain Last Admin: 12/19/21 12:48 Dose: 1 appl Clonazepam (Clonazepam 0.5 Mg Tablet) 0.5 mg PO BID PRN PRN Reason: Anxiety Last Admin: 12/22/21 21:13 Dose: 0.5 mg Cyclobenzaprine HCl (Cyclobenzaprine Hcl 5 Mg Tablet) 5 mg PO TID PRN PRN Reason: musculoskeletal pain Last Admin: 12/23/21 08:49 Dose: 5 mg Dabigatran (Dabigatran Etexilate Mesylate 150 Mg Capsule) 150 mg PO BID [facility] Last Admin: 12/23/21 08:49 Dose: 150 mg Fluticasone Propionate (Fluticasone Propionate Nasal 16 Gm [place]) 1 spray NOSTRIL-B BID PRN PRN Reason: congestion Fluticasone Propionate (Fluticasone Propionate 100 Mcg Blst.W.Dev) 2 puff INHALE RDAILY [facility] Last Admin: 12/23/21 08:49 Dose: 2 puff Gabapentin (Gabapentin 300 Mg Capsule) 900 mg PO TID [facility] Last Admin: 12/23/21 09:42 Dose: 900 mg Hydroxyzine HCl (Hydroxyzine Hcl 25 Mg Tablet) 25 mg PO Q6H PRN PRN Reason: Anxiety Last Admin: 12/23/21 04:24 Dose: 25 mg Ibuprofen (Ibuprofen 600 Mg Tablet) 600 mg PO Q6H PRN PRN Reason: moderate pain Last Admin: 12/22/21 15:55 Dose: 600 mg Lidocaine (Lidocaine 5 % Ointment 35 Gm) 1 appl TOPICAL Q6H PRN; Protocol PRN Reason: right knee pain Last Admin: 12/22/21 16:00 Dose: 1 appl Magnesium Hydroxide (Milk Of Magnesia 30 Ml Oral.Susp) 30 ml PO DAILY PRN PRN Reason: Constipation Last Admin: 12/19/21 09:26 Dose: 30 ml Mesalamine (Mesalamine 400 Mg Cap.Drtab.) 800 mg PO TID [facility] Last Admin: 12/23/21 08:50 Dose: 800 mg Multivitamins/Vitamin C (Multivitamin Tablet) 1 tab PO DAILY [facility] Last Admin: 12/23/21 08:50 Dose: 1 tab Polyethylene Glycol (Polyethylene Glycol 3350 17 Gm Powd.Pack) 17 gm PO DAILY PRN PRN Reason: Constipation Last Admin: 12/19/21 12:04 Dose: 17 gm Sertraline HCl (Sertraline Hcl 50 Mg Tablet) 50 mg PO DAILY [facility] Last Admin: 12/23/21 08:50 Dose: 50 mg Trazodone HCl (Trazodone Hcl 50 Mg Tablet) 50 mg PO BEDTIME PRN PRN Reason: Insomnia Last Admin: 12/22/21 03:07 Dose: 50 mg Trazodone HCl (Trazodone Hcl 100 Mg Tablet) 100 mg PO BEDTIME [facility] Last Admin: 12/22/21 21:12 Dose: 100 mg Allergies Allergies Allergy/AdvReac Type Severity Reaction Status Date / Time naloxone [From SUBOXONE] Allergy Severe weakness Verified 12/18/21 06:50 buprenorphine [From SUBOXONE] AdvReac Severe weakness Verified 12/18/21 06:49 heparin [HEPARIN] AdvReac Severe UNKNOWN Verified 12/18/21 06:51 Iodinated Contrast Media AdvReac Severe KIDNEY Verified 12/18/21 06:51 [IV CONTRAST] FAILURE rivaroxaban [From XARELTO] AdvReac Severe HAIR LOSS Verified 12/18/21 06:52 AND SWELLING Assessment & Plan Assessment & Plan (1) Right knee pain: Status: Acute Code(s): M25.561 - Pain in right knee Assessment and Plan: Ms. Silver is a 51yo female who states that she was getting into bed the evening of 12/20/21 when she felt a pop in her right knee. X-rays obtained reveal no acute fracture, dislocation, or joint effusion. Findings on physical exam are associated with patella subluxation. Patient was educated on the importance of knee ROM and exercises demonstrated to her during bedside consultation. She may use a knee immobilizer for comfort but should be coming out regularly to perform ROM exercises. Physical therapy consult will also be placed. She may followup out patient if needed, no additional orthopedic intervention is needed at this time. (2) PTSD (post-traumatic stress disorder): Status: Acute Code(s): F43.10 - Post-traumatic stress disorder, unspecified (3) Borderline personality disorder: Status: Acute Code(s): F60.3 - Borderline personality disorder Plan 12/16: restarted home medications. started zoloft 25 mg NOW and then 50 mg daily for PMDD/chronic anxiety/PTSD. scheduled trazodone 100 at bedtime. 12/17: syncopal episode, got 2L IV fluids, anti-HTN meds being held.? no other changes today.? slept slightly better last night with trazodone.? orthostatic VS this afternoon not concerning. 12/18: remains weak, logy, dizzy.? orthostatics borderline, but will pull IV access and encourage PO fluids.? continue current management otherwise.? awaiting pt to physically recover from overdose's effects on her body. 12/19: continue current medication- less dizziness/ less lightheadedness. no ortho htn. 12/20: labile, loud fight on phone with boyfriend.? asked for discharge with plan to throw herself from the roof of a hotel.? signed 3-day notice.? continue current mgmt otherwise. 12/21:? Continue current regimen and plans.? Continue 5 minute checks.? Encouraged to eat and drink.? Will order labs tomorrow if this continues 12/22:? Continue current regimen and plans.? Hospitalist consult for right knee injury. 12/23: continue current mgmt. 3-day up weds. seen by ortho, recommending knee immobilizer and PT consult for exercises. PT consult placed. planning for weds discharge at present. I spent ___25___ minutes with the patient and/or on the patient floor today, greater than?50% of which was spent counseling/coordinating care. Reason for contiued inpatient stay Substantial Risk for: inability to function and rapid decompensation
[2021-12-23] MEDS: Milk of Magnesia 30 ML ORAL.SUSP PO (14:45)
[2021-12-23] MEDS: clonazePAM 0.5 MG TABLET PO ×2 (14:48→22:10)
[2021-12-23] MEDS: traZODone HCL 100 MG TABLET PO (22:10)
[2021-12-23] MEDS: Ibuprofen 600 MG TABLET PO (22:10)
[2021-12-23 22:13] VITALS: BP 126/72; PULSE 75; RESP 18; TEMP 36.6; O2SAT 97
[2021-12-24] MEDS: Gabapentin 300 MG CAPSULE 900 MG PO ×3 (08:42→21:37)
[2021-12-24] MEDS: Mesalamine 400 MG CAP.DRTAB. 800 MG PO ×3 (08:42→21:35)
[2021-12-24] MEDS: Dabigatran Etexilate Mesylate 150 MG CAPSULE PO ×2 (08:42→21:35)
[2021-12-24] MEDS: Sertraline HCL 50 MG TABLET PO (08:42)
[2021-12-24] MEDS: Multivitamin TABLET 1 TAB PO (08:42)
[2021-12-24] MEDS: Fluticasone Propionate 100 MCG BLST.W.DEV 2 PUFF INHALE (09:14)
[2021-12-24] MEDS: Lidocaine 5 % Ointment 35 GM 1 APPL TOPICAL (10:26)
[2021-12-24] MEDS: clonazePAM 0.5 MG TABLET PO ×2 (10:27→21:36)
[2021-12-24] MEDS: Cyclobenzaprine HCl 5 MG TABLET PO ×2 (10:27→21:36)
[2021-12-24 10:56] VITALS: BP 109/72; PULSE 84; RESP 16; TEMP 36.7; O2SAT 96
[2021-12-24] MEDS: polyethylene glycoL 3350 17 GM POWD.PACK PO (13:32)
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
[2021-12-24 20:31] VITALS: BP 138/89; PULSE 75; RESP 18; TEMP 36.6; O2SAT 98
[2021-12-24] MEDS: hydrOXYzine HCL 25 MG TABLET PO (21:36)
[2021-12-24] MEDS: traZODone HCL 100 MG TABLET PO (21:37)
[2021-12-24] MEDS: Ibuprofen 600 MG TABLET PO (21:37)
[2021-12-25] MEDS: Acetaminophen 325 MG TABLET 650 MG PO (01:43)
[2021-12-25] MEDS: traZODone HCL 50 MG TABLET PO (01:43)
[2021-12-25] MEDS: Sertraline HCL 50 MG TABLET PO (08:12)
[2021-12-25] MEDS: Dabigatran Etexilate Mesylate 150 MG CAPSULE PO (08:12)
[2021-12-25] MEDS: Fluticasone Propionate 100 MCG BLST.W.DEV 2 PUFF INHALE (08:12)
[2021-12-25] MEDS: Cyclobenzaprine HCl 5 MG TABLET PO (08:13)
[2021-12-25] MEDS: clonazePAM 0.5 MG TABLET PO (08:13)
[2021-12-25] MEDS: Gabapentin 300 MG CAPSULE 900 MG PO (08:13)
[2021-12-25] MEDS: Multivitamin TABLET 1 TAB PO (08:13)
[2021-12-25] MEDS: Mesalamine 400 MG CAP.DRTAB. 800 MG PO (08:13)
[2021-12-25 09:39] VITALS: BP 114/73; PULSE 79; RESP 16; TEMP 36.6; O2SAT 97
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
== END 2021-12-25 11:10 | disposition home or self-care (01) | DRG 752 ==
LOC: HO.ED 12-15 01:30 → HO.PADLT16 12-15 14:33
PROVIDERS: Hospitalist; Social Worker; Admitting Provider Psychiatry & Neurology Psychiatry; Emergency Provider Emergency Medicine Emergency Medical Services; PCP Internal Medicine; Visit Provider Psychiatry & Neurology Psychiatry
DX: F60.3 Borderline personality disorder (principal); E86.0 Dehydration; G35 Multiple sclerosis; I10 Essential (primary) hypertension; K50.90 Crohn's disease, unspecified, without complications; M25.561 Pain in right knee; T50.912A Poisoning by multiple unspecified drugs, medicaments and biological substances, intentional self-harm, initial encounter; I95.1 Orthostatic hypotension; F43.10 Post-traumatic stress disorder, unspecified; Z20.822 Contact with and (suspected) exposure to COVID-19; Z91.041 Radiographic dye allergy status; Z86.718 Personal history of other venous thrombosis and embolism; Z86.711 Personal history of pulmonary embolism; Z79.51 Long term (current) use of inhaled steroids; Z88.8 Allergy status to other drugs, medicaments and biological substances; Z79.899 Other long term (current) drug therapy
CPT/HCPCS: 36415; 70450; 71045; 72125; 73564; 80053; 80061; 80143; 80179; 80307; 81001; 82077; 82550; 82607; 82746; 82947; 83036; 83605; 83690; 84443; 84484; 84702; 85025; 85027; 85379; 85610; 85730; 87635; 93005; 93306; 96360; 96361; 97161; 99285; J2405

== ENCOUNTER 2022-01-09 16:05 | Emergency (ER) | payer OTHER, SELFPAY ==
[2022-01-09 16:10] VITALS: BP 103/63; PULSE 89; RESP 18; TEMP 36.1; O2SAT 96; BMI 35.4
== END 2022-01-09 18:54 | disposition left against medical advice (07) ==
PROVIDERS: Emergency Provider Emergency Medicine; PCP Internal Medicine
DX: K12.2 Cellulitis and abscess of mouth (principal)
CPT/HCPCS: 99281

== ENCOUNTER → 2022-02-24 14:03 | Outpatient (BNVA) | payer OTHER, SELFPAY | PROVIDERS: PCP Internal Medicine; Visit Provider Internal Medicine | DX: R94.31 Abnormal electrocardiogram [ECG] [EKG] (principal); T50.902A Poisoning by unspecified drugs, medicaments and biological substances, intentional self-harm, initial encounter | CPT/HCPCS: 93005; 99212 ==

== ENCOUNTER 2024-08-27 09:27 | Observation (INO) | payer OTHER, SELFPAY ==
--- NOTE | ~2024-08-27 | US_ITS ---
CLINICAL HISTORY: R suprapubic pain. N, diarrhea US pelvis transabdominal and transvaginal with Doppler Comparison: None Findings: Uterus measures 7.5 x 3.8 x 5.3 cm. Small number of subcentimeter subendometrial cysts. Endometrium 7 mm thickness. No lesions. Right ovary 1.6 x 1.4 x 1.5 cm. Left ovary not seen and therefore could not be evaluated. No adnexal mass lesion. Venous waveforms and suboptimal/questionable arterial waveforms were obtained from the right ovary. No free fluid. IMPRESSION: Venous waveforms and suboptimal/questionable arterial waveforms were obtained from the right ovary, precluding accurate evaluation for presence or absence of right ovarian torsion (the right ovary demonstrates unremarkable morphology on grayscale images). If there is persistent clinical concern, Ms Silver could be returned to the ultrasound suite for evaluation of the arterial right ovarian waveforms. Left ovary not seen. No adnexal mass lesion. Subendometrial subcentimeter uterine cysts may be due to adenomyosis. This document has been electronically signed by: Aniyah Brandt MD on 08/27/2024 11:58:35
--- NOTE | ~2024-08-27 | US_ITS ---
CLINICAL HISTORY: dilated cbd, abdominal pain, nausea US abdomen limited Comparison: CT/SR - CT ABDOMEN PELVIS W IV CON - 08/27/24 14:16 EDT Findings: The visualized pancreas is normal. The aorta and inferior vena cava are normal caliber. The liver is normal in size and echotexture. There is mild intrahepatic biliary ductal prominence as seen on the CT. The common duct is 12 mm in diameter. The gallbladder is surgically absent. The main portal vein is antegrade. The right kidney is 10.1 cm in length. No ascites. IMPRESSION: No acute findings. Mild postsurgical prominence of the common bile duct. This document has been electronically signed by: Branden Turner MD on 08/28/2024 13:01:44
--- NOTE | ~2024-08-27 | CT_ITS ---
CLINICAL HISTORY: ABD PAIN CT abdomen and pelvis with contrast Comparison: US - US PELVIC OVARIAN DOPPLER - 08/27/24 10:36 EDT Findings: No consolidation at the lung bases. Status post cholecystectomy. The common bile duct is dilated greater than expected status post cholecystectomy, measuring up to 1.2 cm. No hydronephrosis or nephrolithiasis. No focal decreased enhancement of the kidneys. Underdistended mildly thick-walled bladder. The other solid organs are unremarkable. No bowel wall thickening or dilation. A normal appendix is identified measuring 5 mm without periappendiceal stranding. No aneurysm. No calcified atherosclerotic disease. No lymphadenopathy. No ascites. No acute osseous abnormality. Grade 1 anterolisthesis of L3 on L4, degenerative. Impression: Underdistended mildly thick-walled bladder. Correlate with urinalysis to exclude cystitis. This document has been electronically signed by: Nancy Barnes MD on 08/27/2024 15:50:44
[2024-08-27 09:30] VITALS: BP 180/81; PULSE 76; RESP 20; TEMP 36.9; O2SAT 97; BMI 37.7
--- NOTE | 2024-08-27 09:53 | ED_ITS ---
HPI - Abdominal Pain General Chief Complaint: Abdominal Pain Stated Complaint: feeling unwell, pain lower abd, night sweats Time Seen by Provider: 08/27/24 09:53 Source: patient, RN notes reviewed and old records reviewed Mode of arrival: ambulatory History of Present Illness ED Provider: Vickie Brower PA-C HPI narrative: 54-year-old female with a past medical history of SLE, Crohn's disease, HTN, PE / DVT on Eliquis, presenting to the ED complaining of feeling generally unwell x few days with chills/subjective fever, now with RLQ/suprapubic abdominal pain and diarrhea that started early this morning. Reports associated dull low back and right thigh pain. Denies injury, trauma/ trauma, vomiting, dysuria / hematuria, vaginal bleeding, vaginal discharge, incontinence/retention Related Data Home Medications ?Medication ?Instructions ?Recorded ?Confirmed fluticasone propionate 50 1 spray intranasal BID PRN 12/15/21 02/24/22 mcg/actuation nasal congestion spray,suspension gabapentin 300 mg capsule 3 cap PO TID 12/15/21 02/24/22 apixaban 5 mg tablet (Eliquis) 5 mg PO BID 02/24/22 02/24/22 losartan 100 mg tablet 100 mg PO DAILY 02/24/22 02/24/22 sertraline 100 mg tablet 100 mg PO DAILY 02/24/22 02/24/22 albuterol sulfate 90 mcg/actuation 2 puff inhalation Q4H PRN 08/27/24 aerosol inhaler (Ventolin HFA) Shortness Of Breath Or Wheezing tkaohvfphe-huqdfkiskmewg-pvzkpksy 1 tab PO BID PRN headache 08/27/24 50 mg-325 mg-40 mg tablet cetirizine 10 mg tablet 10 mg PO DAILY PRN congestion 08/27/24 hydrochlorothiazide 12.5 mg tablet 12.5 mg PO DAILY 08/27/24 tizanidine 2 mg tablet 2 - 4 mg PO TID PRN severe pain 08/27/24 trazodone 150 mg tablet 150 mg PO BEDTIME PRN insomnia 08/27/24 Previous Rx's ?Medication ?Instructions ?Recorded capsaicin 0.15 % topical liquid 1 appl topical DAILY PRN pain 30 12/25/21 (Capzasin) days #29.5 mL clonazepam 0.5 mg tablet 1 tab PO BID PRN anxiety 30 days 12/25/21 #60 tabs cyclobenzaprine 5 mg tablet 5 mg PO DAILY 30 days #30 tabs 12/25/21 hydroxyzine HCl 25 mg tablet 25 mg PO BEDTIME PRN Anxiety 30 12/25/21 days #30 tabs lidocaine 5 % topical ointment 1 appl topical Q6H PRN right knee 12/25/21 pain 30 days #100 grams multivitamin (Daily-Joanna tablet) 1 tab PO DAILY 30 days #30 tabs 12/25/21 Allergies Allergy/AdvReac Type Severity Reaction Status Date / Time naloxone [From SUBOXONE] Allergy Severe weakness Verified 08/27/24 09:30 buprenorphine [From SUBOXONE] AdvReac Severe weakness Verified 08/27/24 09:30 heparin [HEPARIN] AdvReac Severe UNKNOWN Verified 08/27/24 09:30 rivaroxaban [From XARELTO] AdvReac Severe HAIR LOSS Verified 08/27/24 09:30 AND SWELLING Review of Systems Review of Systems Yes all other systems are reviewed and are negative Constitutional: Reports as per [facility] Past Medical History Attestation statement: The following information was validated with the patient. Source: old records reviewed Medical History Syncope SLE (systemic lupus erythematosus) Optic neuritis Crohn disease Hypertension Pulmonary embolism DVT (deep venous thrombosis) Abnormal EKG Suicide attempt Drug overdose Family History Family History Father CAD (coronary artery disease) Social History Social History Household Members: Significant Other Housing: House Do you presently have visiting nurse or other home services: No Comment: 5 minute checks for safety Patient Tobacco Use Status: Never used Tobacco Smoked in Last 30 Days: No e-Cigarette/Vaping Use: Never Used Use of substances other than those prescribed or required for medical reasons: Yes Substance Use Type: Marijuana Substance Use Frequency: Occasionally Advance Directives: No Advance Directives Information Provided: Yes service: No Sexual orientation: Straight/Heterosexual Physical Exam ED Vital Signs: Vital Signs - 24 hr 08/27/24 09:30 08/27/24 11:15 08/27/24 14:40 Temperature 98.5 F Pulse Rate 76 61 67 Respiratory Rate 20 16 16 Blood Pressure 180/81 H 127/77 132/78 Pulse Oximetry 97 95 93 Oxygen Delivery Method Room Air Room Air Room Air BMI result Body Mass Index 37.7 Const General: cooperative, healthy appearing and no acute distress Orientation/consciousness: patient oriented x3 Limitations: no limitations HENMT Head: Yes normal to inspection and Yes atraumatic Ears: hearing grossly normal bilaterally General nose exam: Normal external nose present Face and sinus: Yes normal facial exam Eyes General: appearance normal, both eyes and all related structures EOM: EOMs intact bilaterally Neck Neck: Yes normal visual inspection and Yes no meningeal signs Resp Effort & Inspection: normal respiratory effort and no respiratory distress Auscultation: clear to auscultation bilaterally Cardio Rate: regular rate Heart sounds: S1 normal heart sound present and S2 normal heart sound present GI Inspection: Yes normal to inspection Palpation (GI): Soft to palpation, Tenderness to palpation present (GI) ( right suprapubic) in the RLQ; with no rebound tenderness, no guarding and not rigid General: Yes no CVA tenderness External Female Exam: normal external appearance Speculum Exam - Vagina: normal appearance of the vagina, normal vaginal discharge, no lesions and No vaginal bleeding Speculum Exam - Cervix: normal appearance of the cervix Bimanual exam- vagina & uterus: no cervical motion tenderness Bimanual Exam- Adnexa, other: no masses and tender on the right OB/external & speculum: No vaginal bleeding Back/Spine/Pelvis Other: No midline cervical/thoracic/lumbar spinous tenderness/step-off or deformity. + right lower lumbar reproducible MSK tenderness to palpation. No erythema /rash Back: no CVA tenderness Skin Rashes: no rashes Wounds: no wounds Neuro General: patient oriented x3, tone normal and no meningeal signs Cranial nerves: Yes CN's II-XII intact bilaterally Gait exam (Neuro): Normal gait present Extrem General: Yes normal to inspection Course Course Course Narrative: -1200--Labs reassuring, no leukocytosis. - HCG = 6 > likely due to elevated LH in menopause - UA negative 1209-- US pelvic ovarian doppler IMPRESSION: Venous waveforms and suboptimal/questionable arterial waveforms were obtained from the right ovary, precluding accurate evaluation for presence or absence of right ovarian torsion (the right ovary demonstrates unremarkable morphology on grayscale images). If there is persistent clinical concern, Ms Silver could be returned to the ultrasound suite for evaluation of the arterial right ovarian waveforms. Left ovary not seen. No adnexal mass lesion. Subendometrial subcentimeter uterine cysts may be due to adenomyosis. > ultrasound contacted, patient will go back to ultrasound suite for repeat Doppler. Case discussed with OBGYN Dr. Elmer lockwood who recommended pelvic exam with GC/CT -ADDENDUM This document has been electronically signed by: Aniyah Brandt MD on 08/27/2024 11:58:35 Arterial and venous waveforms were obtained from the right ovary. No evidence of right ovarian torsion. > patient denies being sexually active and 2.5 years since her has been passed. Denies concern for STI. 1600-- CT abdomen pelvis w IV con Impression: Underdistended mildly thick-walled bladder. Correlate with urinalysis to exclude cystitis. > on re-evaluation patient is still in significant amount of abdominal pain. We will give additional IV pain medication & treat empirically for PID with IV Rocephin/Doxy/Metronidazole and plan for admission Medical Decision Making Medical Decision Making MDM Narrative: 54-year-old female with a past medical history of SLE, Crohn's disease, HTN, PE / DVT on Eliquis, presenting to the ED complaining of feeling generally unwell x few days with chills/subjective fever, now with RLQ/suprapubic abdominal pain and diarrhea that started early this morning. On exam vital signs stable, NAD, nontoxic appearing, physical exam as noted above, abdomen is soft with right suprapubic tenderness, no rebound or guarding, right lower lumbar MSK reproducible tenderness noted. No midline spinous tenderness. No red flag symptoms. Concern for ovarian cyst vs ?torsion vs renal stones/pyelo vs UTI. Appendicitis on differential. Lower suspicion for diverticulitis, cholecystitis / lithiasis or pancreatitis at this time. Unlikely cauda equina/ cord compression or epidural abscess Plan: Labs, UA, pelvic ultrasound, IVF, pain control, re-evaluate Please refer to course for remaining clinical decision making, interpretation of labs/imaging results, and discussions with consultants and/or family members. Differential Diagnosis Differential Diagnoses: The differential diagnosis associated with the presentation includes As above Admission/Observation Consideration of admission/observation: Escalation of care including admission/observation considered Consult Healthcare Provider Management of the patient was discussed with: Mortar Worker (GINA) Lab Data MDM Lab Attestation statement: I reviewed the patient's lab results. 08/27/24 09:50 08/27/24 11:24 Labs: Lab Results 08/27/24 08/27/24 08/27/24 Range/Units 09:50 11:24 12:49 WBC 5.2 (4.8-10.8) X10*3/uL RBC 4.89 (4.20-5.50) X10*6/uL Hgb 14.2 (12.0-16.0) g/dl Hct 41.9 (37.0-47.0) % MCV 85.7 (80.0-98.0) fL MCH 29.0 (27.0-33.0) pg MCHC 33.9 (31.0-35.0) g/dl RDW 13.3 (11.0-16.0) % Plt Count 251 (160-400) X10*3/uL MPV 10.8 (9.4-12.3) fL Immature Gran % (Auto) 0.2 (0.0-0.4) % Neut % (Auto) 67.5 (45-73) % Lymph % (Auto) 26.0 (20-40) % [place] % (Auto) 4.1 (2-11) % Eos % (Auto) 1.2 (0-4) % Baso % (Auto) 1.0 (0-2) % Lymph # (Auto) 1.3 (1.2-4.9) X10*3/uL [place] # (Auto) 0.2 (0.1-1.2) X10*3/uL Eos # (Auto) 0.1 (0.0-0.4) X10*3/uL Baso # (Auto) 0.1 (0.0-0.2) X10*3/uL Abs Immat Gran (auto) 0.01 (0.00-0.03) X10*3/uL Absolute Neuts (auto) 3.5 (2.0-8.3) x10*3/uL Absolute Nucleated RBC 0.000 (0.0-0.012) X10*3/uL Nucleated RBC % (auto) 0.0 (0.0-0.2) /100WBC Sodium 140 (135-145) mmol/L Potassium 3.7 (3.3-5.1) mmol/L Chloride 105 (96-108) mmol/L Carbon Dioxide 26 (22-29) mmol/L Anion Gap 13 (12-20) BUN 9 (9-16) mg/dL Creatinine 0.83 (0.5-1.4) mg/dL Estim Creat Clear Calc 86.7 Estimated GFR > 60 Random Glucose 83 (60-115) mg/dL Calcium 9.4 (8.4-10.2) mg/dL Magnesium 1.9 (1.6-2.6) mg/dL Total Bilirubin 0.7 (0.0-1.0) mg/dL Direct Bilirubin 0.2 (0.0-0.5) mg/dL AST 22 (5-31) U/L ALT 32 H (0-31) U/L Alkaline Phosphatase 112 (39-117) U/L Total Protein 7.4 (6.5-8.0) g/dL Albumin 4.4 (3.5-5.0) g/dL Lipase 61 (8-78) U/L Beta HCG, Quant 6 mIU/mL Urine Color Yellow Urine Appearance Clear Urine pH 6.0 (5.0-9.0) Ur Specific [place] 1.015 (1.005-1.025) Urine Protein Negative (Neg-Trace) mg/dL Urine Glucose (UA) Negative (Negative) mg/dL Urine Ketones Negative (Negative) mg/dL Urine Blood Negative (Negative) Urine Nitrite Negative (Negative) Ur Leukocyte Esterase Negative (Negative) Urine RBC 0-2 (0-2) /HPF Urine WBC 0-5 (0-5) /HPF Ur Squamous Epith Cells 0-2 (0-2) /HPF Urine Bacteria None Seen (None Seen) Hyaline Casts 0-2 (0-2) /LPF Chlam trachomat DNA PCR NOT DETECTED (Not Detect.) Influenza Type A (PCR) NEGATIVE (Negative) Influenza Type B (PCR) NEGATIVE (Negative) N.gonorrhoeae DNA (PCR) NOT DETECTED (Not Detect.) RSV RNA Qual (PCR) NEGATIVE (Negative) SARS-CoV-2 RNA (RT-PCR) NEGATIVE (Negative) T. vaginalis (PCR) NOT DETECTED (Not Detect) Bact vaginosis (PCR) NEGATIVE (Negative) C. krusei/glabrata (PCR) NOT DETECTED (Not Detect) Armida group (PCR) NOT DETECTED (Not Detect) Independent Interpretation I performed an independent interpretation of an: Ultrasound Radiology Impression Discussion of test interpretation with radiology: I have reviewed the radiologist's reading. External Record Review External record reviewed: Inpatient record, Office record, Outpatient record, Prior outpatient labs, Prior outpatient radiology, Primary care record and Outside ED record Tests considered The following testing was considered but not selected: As above Prescription Management I considered prescription management with: Pain Medication and Antibiotic Chronic Conditions Patient?s care impacted by: Hypertension and Other Social Determinants Patient?s care significantly limited by Social Determinants of Health including: Alcoholism and drug addiction in family and Other Social Determinant of Health Medications Administered Generic Name Dose Route Start Last Admin Trade Name Freq PRN Reason Stop Dose Admin Doxycycline Hyclate 100 mg/ 250 mls @ 166.67 mls/hr 08/27/24 16:06 08/27/24 16:44 Sodium Chloride IV 08/27/24 17:35 166.67 mls/hr ONCE ONE Administration Discontinued Medications Generic Name Dose Route Start Last Admin Trade Name Freq PRN Reason Stop Dose Admin Ceftriaxone Sodium 1 gm 08/27/24 16:06 08/27/24 16:44 Ceftriaxone Sodium 1 Gm Vial IVPUSH 08/27/24 16:07 1 gm ONCE ONE Administration Sodium Chloride 1,000 mls @ 999 mls/hr 08/27/24 10:00 08/27/24 14:52 Ns IV 08/27/24 11:00 Infused .Q1H1M KEEGAN Infusion Acetaminophen 1,000 mg in 100 mls @ 400 mls/hr 08/27/24 10:01 08/27/24 12:03 Ofirmev IV 08/27/24 10:15 Infused ONCE ONE Infusion Iohexol 100 ml 08/27/24 14:29 08/27/24 14:29 Iohexol 350 Mg/Ml 100 Ml Infus..Btl IV 08/27/24 14:30 85 ml ONCE ONE Administration Morphine Sulfate 4 mg 08/27/24 12:13 08/27/24 12:27 Morphine Sulfate 4 Mg/Ml Cartridge IVPUSH 08/27/24 12:14 4 mg ONCE ONE Administration Protocol Morphine Sulfate 4 mg 08/27/24 13:51 08/27/24 14:06 Morphine Sulfate 4 Mg/Ml Cartridge IVPUSH 08/27/24 13:52 4 mg ONCE ONE Administration Protocol Morphine Sulfate 2 mg 08/27/24 16:07 08/27/24 16:23 Morphine Sulfate 2 Mg/Ml Cartridge IVPUSH 08/27/24 16:08 2 mg ONCE ONE Administration Protocol Ondansetron HCl 4 mg 08/27/24 10:00 08/27/24 10:35 Ondansetron Hcl 4 Mg/2 Ml Vial IVPUSH 08/27/24 10:01 4 mg ONCE ONE Administration Critical Care Time Critical Care Time Critical Care Time: Yes Total Critical Care Time: 40 Attestation: I have personally provided critical care time exclusive of time spent on separately billable procedures. Time includes review of lab data, radiology results, discussion with consultants, and monitoring for potential decompensation. Intervention performed as documented. Discharge Plan Discharge Clinical Impression: Suprapubic abdominal pain Patient Disposition: Admitted As Inpatient
[2024-08-27 10:09] LABS: Basophils Absolute Auto 0.1 X10*3/uL (0.0-0.2); Eosinophils Absolute Auto 0.1 X10*3/uL (0.0-0.4); Eosinophils Percent Auto 1.2 % (0-4); Hematocrit 41.9 % (37.0-47.0); Hemoglobin 14.2 g/dl (12.0-16.0); Imm Gran Abs Auto 0.01 X10*3/uL (0.00-0.03); Imm Gran Pct Auto 0.2 % (0.0-0.4); Lymphocytes Absolute Auto 1.3 X10*3/uL (1.2-4.9); Mean Corpuscular HGB Conc 33.9 g/dl (31.0-35.0); Mean Corpuscular Volume 85.7 fL (80.0-98.0); Mean Platelet Volume 10.8 fL (9.4-12.3); Monocytes Absolute Auto 0.2 X10*3/uL (0.1-1.2); Monocytes Percent Auto 4.1 % (2-11); Neutrophils Absolute Auto 3.5 x10*3/uL (2.0-8.3); Neutrophils Percent Auto 67.5 % (45-73); Red Blood Count 4.89 X10*6/uL (4.20-5.50); Red Cell Distribution Width 13.3 % (11.0-16.0)
[2024-08-27 10:10] LABS: Platelet Count 251 X10*3/uL (160-400); White Blood Count 5.2 X10*3/uL (4.8-10.8)
--- OUTSIDE RECORDS SUMMARY | 2024-08-27 10:13 | XMS_ITS | Clinical Summary ---
Author Organization [facility] Address [address] [place] [address] Care Team Providers Care Geodetic Technician Name Role Phone Hugh Ng MD Primary Care Provider [phone] Surgical History Surgery Date Site/Laterality Comments EYE SURGERY PROCEDURE: HISTORICAL EYE SURGERY COLONOSCOPY PROCEDURE: NM COLONOSCOPY STOMA DX INCLUDING COLLJ SPEC SPX; COMMENT: precancer polyps, 2012, 2002 OTHER SURGICAL HISTORY PROCEDURE: ENDOSCOPICSTUDYSWALLOWFUNCTN CHOLECYSTECTOMY 1993 PROCEDURE: NM CHOLECYSTECTOMY SECTION 1988 PROCEDURE: HISTORICAL DELIVERY OTHER SURGICAL HISTORY PROCEDURE: NM LAPAROSCOPY W/LYSIS OF ADHESIONS; COMMENT: one for cystectomy, one for IFTIKHAR Medical History Medical History Date Comments Major depressive disorder DX:Riki or depressive disorder Anxiety DX:Anxiety Borderline personality disor charles ([facility] V24, [facility] V28) DX:Borderline personality d isorder (HCC) Crohn's disease ([facility] V24 , [facility] V28) DX:Crohn's disease (HCC) Mccauley syndrome DX:Mccauley syndrom e HTN (hypertension) DX:HTN (hyper tension) Low back pain DX:Low back pain Reflex sympathetic dystrophy of the leg DX:Reflex sympathetic dystro phy of the leg Esophageal dyskinesia DX:Esophag eal dyskinesia Asthma DX:Asthma Seizures ([facility] V24, [facility] V28) DX:Seizures (HCC) Systemic lupus erythematosus ([facility] V24, [facility] V28) DX:Systemic lupus erythemato russell (HCC) History of vitamin D deficiency DX:History of vitamin D deficiency PTSD (post-traumatic stress disorder) DX:PTSD (post-traumatic stress disorder) Anxiety DX:Anxiety Fibromyalgia DX:Fibromyalgia Subclavian vein thrombosis ( [facility] V24, [facility] V28) DX:Subclavian vein thrombosi s ([facility]); COMMENT: left Crohn disease ([facility] V24, [facility] V28) DX:Crohn disease (HCC) Osteoarthritis DX:Osteoarthriti s; COMMENT: hands, shoulders, back, hips and knees Acquired hypercoagulable sta te ([facility] V24) 04/11/2014 DX:Acquired hypercoagulable state (HCC) Hypoglycemia 03/08/2015 DX:Hypoglycemia Hypercoagulable state ([facility] V24) 03/08/2015 DX:Hypercoagulable state (HCC) Chronic kidney disease (CKD) , stage III (moderate) ([facility] V24, [facility] V28) 07/19/2015 DX:Chronic kidney disease (C KD), stage III (moderate) (HCC) Gastritis 01/22/2016 DX:Gastritis; CO MMENT: Biopsy 11/12/15 Anemia 01/22/2016 DX:Anemia Family History Medical History Relation Name Comments Bladder Cancer Aunt 1 mat aunt mat-still anatoliy ing 2013-not kidney or ureter ca Breast cancer Aunt 1 mat aunt Colon cancer Aunt 2 has colostomy-m aternal Lung cancer Aunt 3 mat-lung to bra in cancer in her 50s Other: liver cancer Aunt 4 Dementia Aunt 5 paternal aunt Other: lupus Aunt 6 paternal aunt a nd possibly Shweta's dad Other: IBS Daughter 1 3 polyps on col onoscopy Other: heart attack Father at 38 Colon cancer Maternal Grandfather in his 50s of colon cancer ? polyps Diabetes Maternal Grandmother in her 50s after bilat LE amp Brain cancer Mother brain tumor fro m lung mets, also adrenal ca Other: ovarian cancer Other 1 matern al first cousin-dtr of aunt #2 Other: combat injuries Other 2 3 pat ernal uncles Other: Other Paternal Grandfather in his60s Other: heart dis Paternal Grandmother d in her 40s Other: pancreatic cancer Uncle mat ernal uncle Relation Name Status Comments Aunt 1 mat aunt Alive Aunt 2 Aunt 3 Aunt 4 Aunt 5 Aunt 6 Brother 1 drug & alcohol abuse Brother 2 drug & alcohol abuse Brother 3 drug & alcohol abuse Brother 4 drug & alcohol abuse Brother 5 drug & alcohol abuse Daughter 1 Daughter 2 Alive crohn's ? lupus Daughter 3 Alive healthy Father (Age 38) alcohol ab use/AL Maternal Grandfather colon c a Maternal Grandmother DM Mother DM/cancer/drug & alcohol abuse Other 1 Other 2 Paternal Grandfather unknown Paternal Grandmother lupus Sister hx of alcohol a buse Son Alive autism Uncle Social History Tobacco Use Types Packs/Day Years Used Date Smoking Tobacco: Never Smokeless Tobacco: Never Alcohol Use Standard Drinks/Week Comments Yes 0 (1 standard drink = 0.6 oz pur e alcohol) Comments Unknown Sex and Gender Information Value Date Recorded Sex Assigned at Not on file Legal Sex Female 4:03 PM EST Gender Identity Not on file Sexual Orientation Not on file Obstetrics History Plan of Treatment Health Maintenance Due Date Last Done Comments Breast Cancer Screening 1971 DTaP,Tdap,and Td Vaccines (1 - Tdap) 08/26/1990 Hepatitis B Vaccines (1 of 3 - 19+ 3-dose series) 08/26/1990 Cervical Cancer Screening: P ap Smear 08/26/1992 Pneumococcal Vaccine: 50+ Ye ars (1 of 1 - PCV) 08/26/2021 Zoster Vaccines (1 of 2) 08/26/2021 Colorectal Cancer Screening: Colonoscopy 02/26/2022 Depression Screening 02/26/2022 HIV Screening 02/26/2022 Hepatitis C Screening 02/26/2022 Social Influencers of Health Screening 02/26/2022 COVID-19 Vaccine ( - 2023-2 5 season) 2023 Influenza Vaccine (Season Ended) 2024 HIB Vaccines Aged Out No longer eligi ble based on patient's age to complete this topic HPV Vaccines Aged Out No longer eligi ble based on patient's age to complete this topic Hepatitis A Vaccines Aged Out No long er eligible based on patient's age to complete this topic IPV Vaccines Aged Out No longer eligi ble based on patient's age to complete this topic MMR Vaccines Aged Out No longer eligi ble based on patient's age to complete this topic Meningococcal ACWY Vaccine Aged Out N o longer eligible based on patient's age to complete this topic Meningococcal B Vaccine Aged Out No l onger eligible based on patient's age to complete this topic Pneumococcal Vaccine: Pediat rics (0 to 5 Years) and At-Risk Patients (6 to 64 Years) Aged Out No longer eligible b ased on patient's age to complete this topic RSV Immunization Patients Un charles 20 months Aged Out No longer eligible b ased on patient's age to complete this topic Varicella Vaccines Aged Out No longer eligible based on patient's age to complete this topic Care Teams Geodetic Technician Relationship Specialty Start Date End Date Hugh Ng MD [address] [place] [id number] PCP - General Internal Medicine 03/31/18
[2024-08-27] MEDS: ondansetron HCL 4 MG/2 ML VIAL IVPUSH ×2 (10:35→18:19)
[2024-08-27] MEDS: Acetaminophen 1,000 MG/100 ML PIGGYBACK 400 MG IV (10:36)
[2024-08-27] MEDS: 0.9 % Sodium Chloride 1,000 ML 999 ML IV (10:37)
[2024-08-27 10:43] LABS: Influenza A PCR NEGATIVE (Negative); Influenza B PCR NEGATIVE (Negative); Resp Syncy Virus RNA Qual PCR NEGATIVE (Negative); SARS COV2 PCR INHOUSE NEGATIVE (Negative)
[2024-08-27 11:15] VITALS: BP 127/77; PULSE 61; RESP 16; O2SAT 95
--- NOTE | 2024-08-27 11:20 | PC.NURSE ---
Assumed care of this patient at 1100, question by PA if labs had hemolyized/needs recollect, called lab spoke to Patricia - labs do need to be recollected, iPto CASTAÑEDA at bedside recollecting now.
[2024-08-27 11:41] LABS: Appearance Urine Clear; Color Urine Yellow; Glucose Urine UA Negative (Negative); Leukocyte Esterase Urine Negative (Negative); Nitrite Urine Negative (Negative); Specific Gravity - Urine 1.015 (1.005-1.025); Urine Blood Negative (Negative); Urine Ketones Negative (Negative); Urine Protein Negative (Neg-Trace)
[2024-08-27 11:43] LABS: Bacteria Urine None Seen (None Seen); Hyaline Casts Urine 0-2 /LPF (0-2); RBC Urine 0-2 /HPF (0-2); Squamous Epithelial Cell Urine 0-2 /HPF (0-2); WBC Urine 0-5 /HPF (0-5)
[2024-08-27 11:53] LABS: Alanine Aminotransferase 32 U/L (0-31); Albumin Level 4.4 g/dL (3.5-5.0); Alkaline Phosphatase 112 U/L (39-117); Anion Gap 13 (12-20); Aspartate Amino Transferase 22 U/L (5-31); Bilirubin Direct 0.2 mg/dL (0.0-0.5); Bilirubin Total 0.7 mg/dL (0.0-1.0); Blood Urea Nitrogen 9 mg/dL (9-16); Calcium 9.4 mg/dL (8.4-10.2); Carbon Dioxide 26 mmol/L (22-29); Chloride 105 mmol/L (96-108); Creatinine Clr Calc Pharmacy 86.7; Estimated Glomerular Filt Rate > 60; Glucose Random 83 mg/dL (60-115); HCG Quantitative 6 mIU/mL; Lipase 61 U/L (8-78); Magnesium 1.9 mg/dL (1.6-2.6); Potassium 3.7 mmol/L (3.3-5.1); Sodium 140 mmol/L (135-145); Total Protein 7.4 g/dL (6.5-8.0)
[2024-08-27] MEDS: Morphine Sulfate 4 MG/ML CARTRIDGE IVPUSH ×3 (12:27→21:45)
--- NOTE | 2024-08-27 12:49 | PM.GYNCN ---
[facility] - CN: HPI Data of Consult Consult date: 08/27/24 Primary Care Provider: Hugh Ng MD Consult Narrative Narrative: I was consulted at 12:13 p.m. on Shweta Silver who is a 54 year old female presented to the emergency room complaining of feeling generally unwell x few days history of RLQ/suprapubic abdominal pain and diarrhea that started early this morning associated with dull low back and right thigh pain, no vomiting, dysuria / hematuria, no vaginal bleeding, vaginal discharge. The patient has been sexually active for the last 2-1/2 years since her , no recent history of pelvic instrumentation. CBC within normal no leukocytosis HCG 6, hCG was 3 in 2021 UA negative Pelvic ultrasound showed the following: IMPRESSION: Venous waveforms and suboptimal/questionable arterial waveforms were obtained from the right ovary, precluding accurate evaluation for presence or absence of right ovarian torsion (the right ovary demonstrates unremarkable morphology on grayscale images). If there is persistent clinical concern, Ms Silver could be returned to the ultrasound suite for evaluation of the arterial right ovarian waveforms. Left ovary not seen. No adnexal mass lesion. Subendometrial subcentimeter uterine cysts may be due to adenomyosis. CT scan of abdomen and pelvis showed the following: May be today that she might go Impression: Underdistended mildly thick-walled bladder. Correlate with urinalysis to exclude cystitis. cc:: CC: [facility] Past Medical History Medical History Syncope SLE (systemic lupus erythematosus) Optic neuritis Crohn disease Hypertension Pulmonary embolism DVT (deep venous thrombosis) Abnormal EKG Suicide attempt Drug overdose Family History Family History Father CAD (coronary artery disease) Social History Social History Household Members: None Housing: House Do you presently have visiting nurse or other home services: No Comment: 5 minute checks for safety Patient Tobacco Use Status: Never used Tobacco e-Cigarette/Vaping Use: Never Used Substance Use Type: Marijuana service: No Sexual orientation: Straight/Heterosexual Meds Allergies Allergy/AdvReac Type Severity Reaction Status Date / Time naloxone (From SUBOXONE) Allergy Severe weakness Verified 08/27/24 09:30 buprenorphine (From SUBOXONE) AdvReac Severe weakness Verified 08/27/24 09:30 heparin (HEPARIN) AdvReac Severe UNKNOWN Verified 08/27/24 09:30 rivaroxaban (From XARELTO) AdvReac Severe HAIR LOSS Verified 08/27/24 09:30 AND SWELLING Home Medications ?Medication ?Instructions ?Recorded ?Confirmed ?Last Taken ?Type fluticasone propionate 50 1 spray intranasal BID PRN 12/15/21 08/27/24 Unknown History mcg/actuation nasal congestion spray,suspension gabapentin 300 mg capsule 900 mg PO TID 12/15/21 08/27/24 08/26/24 History losartan 100 mg tablet 100 mg PO DAILY 02/24/22 08/27/24 08/26/24 History sertraline 100 mg tablet 100 mg PO DAILY 02/24/22 08/27/24 08/26/24 History albuterol sulfate 90 mcg/actuation 2 puff inhalation Q4H PRN 08/27/24 08/27/24 Unknown History aerosol inhaler (Ventolin HFA) Shortness Of Breath Or Wheezing qhyzqtshqz-qwajflckszqxm-zxfjidws 1 tab PO BID PRN headache 08/27/24 08/27/24 08/26/24 History 50 mg-325 mg-40 mg tablet cetirizine 10 mg tablet 10 mg PO DAILY PRN congestion 08/27/24 08/27/24 Unknown History hydrochlorothiazide 12.5 mg tablet 12.5 mg PO DAILY 08/27/24 08/27/24 08/26/24 History tizanidine 2 mg tablet 2 mg PO TID PRN severe pain 08/27/24 08/27/24 Unknown History trazodone 150 mg tablet 150 mg PO BEDTIME PRN insomnia 08/27/24 08/27/24 Unknown History [facility] Physical Exam Vitals Vital signs: Temp Pulse Resp BP Pulse Ox O2 Del Method 98.5 F 61 16 127/77 95 Room Air 08/27/24 09:30 08/27/24 11:15 08/27/24 11:15 08/27/24 11:15 08/27/24 11:15 08/27/24 11:15 BMI result Body Mass Index 37.7 Abdomen Auscultation/Inspection/Palpation: Soft, Non-distended, No CVA tenderness and Tenderness (Right lower quadrant and suprapubic tenderness no guarding) Female Genitalia (Pelvic) Bladder/Urethra: Normal meatus Vulva: No lesions Cervix: Grossly normal and Cervical motion tenderness Uterus: Tender Adnexa/Parametria: Adnexal Tenderness: Right, Adnexal Mass: None, Parametrial Tenderness: None and Parametrial Mass: None [facility] - Results Labs 08/27/24 09:50 08/27/24 11:24 Labs: Short CBC 08/27/24 Range/Units 09:50 WBC 5.2 (4.8-10.8) X10*3/uL Hgb 14.2 (12.0-16.0) g/dl Hct 41.9 (37.0-47.0) % Plt Count 251 (160-400) X10*3/uL BMP 08/27/24 11:24 Sodium 140 Potassium 3.7 Chloride 105 Carbon Dioxide 26 BUN 9 Creatinine 0.83 Calcium 9.4 Liver Function 08/27/24 Range/Units 11:24 Total Bilirubin 0.7 (0.0-1.0) mg/dL Direct Bilirubin 0.2 (0.0-0.5) mg/dL AST 22 (5-31) U/L ALT 32 H (0-31) U/L Alkaline Phosphatase 112 (39-117) U/L Albumin 4.4 (3.5-5.0) g/dL Urine 08/27/24 Range/Units 11:24 Urine Color Yellow Urine Appearance Clear Urine pH 6.0 (5.0-9.0) Ur Specific [place] 1.015 (1.005-1.025) Urine Protein Negative (Neg-Trace) mg/dL Urine Glucose (UA) Negative (Negative) mg/dL Assessment and Plan (1) Pelvic pain: Status: Acute Plan Mild hCG elevation is possibly secondary to elevated LH due to menopause, recommended repeat hCG in 48 hours Recommended the following to TINO Stewart: Perform a Pelvic exam and collect GC/CT, Trichomonas, BV panel and repeat Doppler studies . 1:50 pm US addendum reported by TINO Rushing as the following: ADDENDUM: Arterial and venous waveforms were obtained from the right ovary. No evidence of right ovarian torsion. Recommended to TINO Stewart the following: From the sponge buffer standpoint, given bilateral normal ovaries with no evidence of pathology, PID is a possibility in the differential diagnosis, recommend rule out other non sponge buffer causes, if no other obvious causes of her pain, I recommend coverage for PID with CDC recommended regimen although the patient is low risk since she has not been sexually active for the last 2-1/2 years since her with no history of pelvic instrumentation ; IV ceftriaxone 1 g Q 24 hours/doxycycline 100 mg b.i.d. and metronidazole 500 mg p.o. b.i.d., once the patient clinically improves within 48-72 hours , she is could be discharged on metronidazole/ doxy to complete the atb course of 14 days and to follow up in the office afterwards.
[2024-08-27 14:17] LABS: Bacterial Vaginosis PCR NEGATIVE (Negative); Candida Group PCR NOT DETECTED (Not Detect); Candida glab krusei PCR NOT DETECTED (Not Detect); Trichomonas vaginalis PCR NOT DETECTED (Not Detect)
[2024-08-27] MEDS: iohexoL 350 MG/ML 100 ML INFUS..BTL IV (14:29)
[2024-08-27 14:40] VITALS: BP 132/78; PULSE 67; RESP 16; O2SAT 93
[2024-08-27 14:48] LABS: CT PCR NOT DETECTED (Not Detect.); NG PCR NOT DETECTED (Not Detect.)
--- NOTE | 2024-08-27 15:28 | PC.NURSE ---
Dr. Payne at bedside to preform pelvic exam
[2024-08-27] MEDS: Morphine Sulfate 2 MG/ML CARTRIDGE IVPUSH (16:23)
--- NOTE | 2024-08-27 16:23 | PC.NURSE ---
confirmed w/ provider lactic not needed.
--- NOTE | 2024-08-27 16:38 | PM.IMHP ---
History of Present Illness Date of Service: 08/27/24 Attending physician on admission: Sammy Iglesias Chief Complaint: abdominal pain This is a 54-year-old female with history of SLE, Crohn's disease, DVT/PE no longer on AC, HTN, seizure disorder who presents to the emergency department with complaints of abdominal pain. Patient reports 3 day history of progressively worsening right lower quadrant abdominal pain associated with nausea. She had 1 episode of vomiting 3 days ago with no subsequent episodes. Her abdominal pain was initially intermittent but has become persistent. Nothing makes the pain better. She has had decreased appetite. She also reports multiple episodes of nonbloody diarrhea. Her abdominal pain is not consistent Crohn's flares, she reports her Crohn's disease has been well controlled for the past several years. In the emergency department lab work was relatively unremarkable. CT scan of the abdomen and pelvis with contrast with mild thickening of the bladder, dilation of the common bile duct, status post cholecystectomy. Urinalysis negative for acute infection. She denies urinary symptoms including dysuria, polyuria and denies vaginal discharge. LFTs within normal limits, no right upper quadrant abdominal pain. Thick Doppler ultrasound revealed no evidence of ovarian torsion. She was seen by strategy director who felt that her symptoms could be related to PID and recommended 14 day course of antibiotics. She has not been sexually active, has no history of recent pelvic instrumentation. Gonorrhea, chlamydia and BV panel negative. Patient persistent abdominal pain requiring multiple doses of IV narcotics and therefore the patient will be admitted for further management. Review of Systems Review of Systems: Yes all other systems are reviewed and are negative Constitutional: Constitutional: Denies chills Cardiovascular: Cardiovascular: Denies chest pain and Denies palpitations Respiratory: Respiratory: Denies cough Gastrointestinal: Gastrointestinal: Reports abdominal pain, Denies hematochezia, Reports diarrhea and Reports nausea Endocrine: Endocrine: Denies palpitations [facility] Medical History Syncope SLE (systemic lupus erythematosus) Optic neuritis Crohn disease Hypertension Pulmonary embolism DVT (deep venous thrombosis) Abnormal EKG Suicide attempt Drug overdose Family History Father CAD (coronary artery disease) Social History Household Members: Significant Other Housing: House Do you presently have visiting nurse or other home services: No Comment: 5 minute checks for safety Patient Tobacco Use Status: Never used Tobacco Smoked in Last 30 Days: No e-Cigarette/Vaping Use: Never Used Use of substances other than those prescribed or required for medical reasons: Yes Substance Use Type: Marijuana Substance Use Frequency: Occasionally Advance Directives: No Advance Directives Information Provided: Yes service: No Sexual orientation: Straight/Heterosexual Meds Allergies Allergy/AdvReac Type Severity Reaction Status Date / Time naloxone [From SUBOXONE] Allergy Severe weakness Verified 08/27/24 09:30 buprenorphine [From SUBOXONE] AdvReac Severe weakness Verified 08/27/24 09:30 heparin [HEPARIN] AdvReac Severe UNKNOWN Verified 08/27/24 09:30 rivaroxaban [From XARELTO] AdvReac Severe HAIR LOSS Verified 08/27/24 09:30 AND SWELLING Active Medications: Current Medications Doxycycline Hyclate 100 mg/ (Sodium Chloride) 250 mls @ 166.67 mls/hr IV ONCE ONE Stop: 08/27/24 17:35 Metronidazole (Flagyl) 500 mg in 100 mls @ 100 mls/hr IV ONCE ONE Stop: 08/27/24 17:05 Home Medications ?Medication ?Instructions ?Recorded ?Confirmed ?Last Taken ?Type fluticasone propionate 50 1 spray intranasal BID PRN 12/15/21 08/27/24 Unknown History mcg/actuation nasal congestion spray,suspension gabapentin 300 mg capsule 900 mg PO TID 12/15/21 08/27/24 08/26/24 History losartan 100 mg tablet 100 mg PO DAILY 02/24/22 08/27/24 08/26/24 History sertraline 100 mg tablet 100 mg PO DAILY 02/24/22 08/27/24 08/26/24 History albuterol sulfate 90 mcg/actuation 2 puff inhalation Q4H PRN 08/27/24 08/27/24 Unknown History aerosol inhaler (Ventolin HFA) Shortness Of Breath Or Wheezing apjkndwkuj-ogzqiiichdufd-[id number] 1 tab PO BID PRN headache 08/27/24 08/27/24 08/26/24 History 50 mg-325 mg-40 mg tablet cetirizine 10 mg tablet 10 mg PO DAILY PRN congestion 08/27/24 08/27/24 Unknown History hydrochlorothiazide 12.5 mg tablet 12.5 mg PO DAILY 08/27/24 08/27/24 08/26/24 History tizanidine 2 mg tablet 2 mg PO TID PRN severe pain 08/27/24 08/27/24 Unknown History trazodone 150 mg tablet 150 mg PO BEDTIME PRN insomnia 08/27/24 08/27/24 Unknown History Physical Exam Vital Signs and Narrative: Vital Signs: Last Vital Signs Temp 98.5 F 08/27/24 09:30 Pulse 67 08/27/24 14:40 Resp 16 08/27/24 14:40 BP 132/78 08/27/24 14:40 Pulse Ox 93 08/27/24 14:40 O2 Del Method Room Air 08/27/24 14:40 BMI result Body Mass Index 37.7 Const: General: cooperative, comfortable, no acute distress, alert and awake Nutritional Appearance: obese Orientation/consciousness: patient oriented x3 Resp: Effort & Inspection: normal respiratory effort, able to speak in complete sentences, no respiratory distress and no use of accessory muscles Cardio: Rate: regular rate GI: Other: right side tenderness, RLQ primarily, non-distend; no guarding no rebound Neuro: General: patient oriented x3, moves all extremities and CN's II-XI intact bilaterally Extrem: General: Yes no pedal edema Results Labs 08/27/24 09:50 08/27/24 11:24 Labs: Laboratory Results - last 24 hr 08/27/24 08/27/24 08/27/24 09:50 11:24 12:49 MCV 85.7 MCH 29.0 MCHC 33.9 RDW 13.3 Plt Count 251 MPV 10.8 Immature Gran % (Auto) 0.2 Neut % (Auto) 67.5 Lymph % (Auto) 26.0 Tucker % (Auto) 4.1 Eos % (Auto) 1.2 Baso % (Auto) 1.0 Lymph # (Auto) 1.3 Tucker # (Auto) 0.2 Eos # (Auto) 0.1 Baso # (Auto) 0.1 Abs Immat Gran (auto) 0.01 Absolute Neuts (auto) 3.5 Absolute Nucleated RBC 0.000 Nucleated RBC % (auto) 0.0 Anion Gap 13 Estim Creat Clear Calc 86.7 Estimated GFR > 60 Random Glucose 83 Calcium 9.4 Magnesium 1.9 Total Bilirubin 0.7 Direct Bilirubin 0.2 AST 22 ALT 32 H Alkaline Phosphatase 112 Total Protein 7.4 Albumin 4.4 Lipase 61 Beta HCG, Quant 6 Urine Color Yellow Urine Appearance Clear Urine pH 6.0 Ur Specific [place] 1.015 Urine Protein Negative Urine Glucose (UA) Negative Urine Ketones Negative Urine Blood Negative Urine Nitrite Negative Ur Leukocyte Esterase Negative Urine RBC 0-2 Urine WBC 0-5 Ur Squamous Epith Cells 0-2 Urine Bacteria None Seen Hyaline Casts 0-2 Chlam trachomat DNA PCR NOT DETECTED Influenza Type A (PCR) NEGATIVE Influenza Type B (PCR) NEGATIVE N.gonorrhoeae DNA (PCR) NOT DETECTED RSV RNA Qual (PCR) NEGATIVE SARS-CoV-2 RNA (RT-PCR) NEGATIVE T. vaginalis (PCR) NOT DETECTED Bact vaginosis (PCR) NEGATIVE C. krusei/glabrata (PCR) NOT DETECTED Armida group (PCR) NOT DETECTED Assessment and Plan (1) Pelvic pain: Status: Acute Plan This is a 54-year-old female with history of SLE, Crohn's disease, HTN, PE/DVT no longer on anticoagulation h/o opiate use on suboxone, borderline personality disorder, PTES who presented to the emergency department with 3 day history of abdominal pain, chills, abdominal pain being admitted for intractable abdominal pain possibly due to PID Intractable Abdominal pain with nausea and diarrhea Abdominal CT scan with contrast essentially normal, CBD dilated although no significant RUQ pain and normal LFTs pain not c/w crohns flare per pt UA negative possible PID (although per ED documentation no cervical motion tenderness on exam) seen by [facility] - recommend treating for PID with IV ceftriaxone, doxycycline, metronidazole to complete 14 day course (outpatient follow up with [facility]) possible gastroenteritis - will check stool studies Pain control, antiemetics Elevated HCG Likely due to elevated LH and menopause can repeat in 48 hours HTN resume baseline meds when med rec complete seizure d/o no recent seizure activity now on gabapentin SLE reports no active dz/remission. not currently on any meds Mood disorder continue baseline meds med rec pending at the time of admission dvt ppx - mechanical devices/early ambulation Quality Stroke Does the patient have a stroke diagnosis?: No VTE Prior VTE?: No VTE Risk Level:: Medical - moderate - high VTE Device Contraindication: N/A - Device Ordered VTE Drug Contraindication: Drug Allergy
[2024-08-27] MEDS: Doxycycline Hyclate 100 MG in 0.9 % Sodium Chloride 250 ML 166.67 MG IV (16:44)
[2024-08-27] MEDS: cefTRIAXone sodium 1 GM VIAL IVPUSH (16:44)
[2024-08-27 16:52] VITALS: BP 136/78; PULSE 57; RESP 16; TEMP 36.4; O2SAT 95
[2024-08-27] MEDS: metroNIDAZOLE/NS 500 MG/100 ML PIGGYBACK 100 MG IV (18:19)
--- NOTE | 2024-08-27 18:25 | PHA.MEDREC ---
Pharmacy Consult ? Medication Reconciliation Pharmacy has completed the medication reconciliation. Spoke to patient to confirm med list. Patient states she is no longer taking Eliquis 5 mg *(patient stopped this medication on her own a few months ago, patient states she told her doctor she was stopping because she was taking to much medications)* Clonazepam 0.5 mg, Cyclobenzaprine 5 mg, and Hydroxyzine 25 mg Patient states she is still taking Sertraline 100 mg, however last fill date was 01/31/24 for 30 days. Patient confirmed Gabapentin 600 mg ( 3 x 300mg) QID, however [facility]entin 600 mg (3x 300 mg) TID, left on med rec what claims states, Tizanidine 2 mg TID, (patient only takes 1 tablet, even though claims has 2-4 mg).
--- NOTE | 2024-08-27 18:41 | PHA.MEDREC ---
Addendum entered by Nithin Montemayor, [facility] 08/27/24 18:42: Med rec reviewed Original Note: Pharmacy Consult ? Medication Reconciliation Pharmacy has completed the medication reconciliation. Spoke to patient to confirm med list. Patient states she is no longer taking Eliquis 5 mg *(patient stopped this medication on her own a few months ago, patient states she told her doctor she was stopping because she was taking to much medications)* Clonazepam 0.5 mg, Cyclobenzaprine 5 mg, and Hydroxyzine 25 mg Patient states she is still taking Sertraline 100 mg, however last fill date was 01/31/24 for 30 days. Patient confirmed Gabapentin 900 mg ( 3 x 300mg) QID, however [facility] 900 mg (3x 300 mg) TID, left on med rec what claims states, Tizanidine 2 mg TID, (patient only takes 1 tablet, even though claims has 2-4 mg).
[2024-08-27 20:03] VITALS: BP 169/91; PULSE 64; RESP 16; TEMP 36.3; O2SAT 99
[2024-08-27 22:25] VITALS: BP 143/86; PULSE 64; RESP 16; TEMP 36.4; O2SAT 95
[2024-08-28] VITALS (8 sets, daily range): BP systolic 137–192; BP diastolic 72–102; PULSE 55–62; RESP 16–20; TEMP 36.4–37.1; O2SAT 94–98; BMI 36.9
[2024-08-28] MEDS: Morphine Sulfate 4 MG/ML CARTRIDGE IVPUSH ×3 (01:46→15:40)
[2024-08-28] MEDS: metroNIDAZOLE/NS 500 MG/100 ML PIGGYBACK 100 MG IV ×3 (01:46→17:49)
[2024-08-28] MEDS: 0.9 % Sodium Chloride Flush 3 ML SYRINGE IVFLUSH ×3 (01:47→15:45)
[2024-08-28] MEDS: Doxycycline Hyclate 100 MG in 0.9 % Sodium Chloride 250 ML 166.67 MG IV (05:45)
[2024-08-28] MEDS: Acetaminophen 325 MG TABLET 650 MG PO (05:50)
[2024-08-28] MEDS: ondansetron HCL 4 MG/2 ML VIAL IVPUSH ×2 (07:23→15:40)
[2024-08-28] MEDS: Metoclopramide HCl 10 MG/2 ML VIAL 5 MG IVPUSH (10:15)
[2024-08-28] MEDS: Losartan Potassium 50 MG TABLET 100 MG PO (10:15)
--- NOTE | 2024-08-28 10:50 | P.PNIM_ITS ---
Subjective Subjective Date of Service: 08/28/24 Interval History: Seen and examined this morning Follow-up for abdominal pain Patient reporting a lot of nausea this morning. Did not have any further diarrhea overnight Review of Systems Review of Systems: Yes all other systems are reviewed and are negative Constitutional Constitutional: Denies chills and Denies fever(s) Cardiovascular Cardiovascular: Denies chest pain, Denies palpitations and Denies dyspnea Respiratory Respiratory: Denies cough and Denies dyspnea Gastrointestinal Gastrointestinal: Denies diarrhea, Reports nausea and Denies vomiting Endocrine Endocrine: Denies palpitations Physical Exam 2 Vital Signs: Vital Signs: Last Vital Signs Temp 97.8 F 08/28/24 09:43 Pulse 56 08/28/24 09:43 Resp 18 08/28/24 09:58 BP 192/102 H 08/28/24 10:15 Pulse Ox 97 08/28/24 09:43 O2 Del Method Room Air 08/28/24 09:43 BMI result Body Mass Index 37.7 Const: Other: appears uncomfortable General: cooperative, alert and awake Nutritional Appearance: obese O rientation/consciousness: patient oriented x3 Resp: Effort & Inspection: normal respiratory effort, able to speak in complete sentences, no respiratory distress and no use of accessory muscles A uscultation: clear to auscultation bilaterally Cardio: Rate: regular rate GI: Other: right side tenderness, RLQ primarily, non-distend; no guarding no rebound Neuro: General: patient oriented x3, moves all extremities and CN's II-XI intact bilaterally Extrem: General: Yes no pedal edema Objective Data Active Medications Acetaminophen (Acetaminophen 325 Mg Tablet) 650 mg PO Q6H PRN PRN Reason: Pain, Mild 1-3,fever,headache Last Admin: 08/28/24 05:50 Dose: 650 mg Documented By: MARICHUY Acetaminophen/Butalbital/Caffeine (Butalb/Acetamin/Caff 50/325/40 Tablet) 1 tab PO BID PRN PRN Reason: headache Calcium Carbonate (Calcium Carbonate 750 Mg Tab.Chew) 750 mg PO Q4H PRN PRN Reason: Heartburn Ceftriaxone Sodium (Ceftriaxone Sodium 1 Gm Vial) 1 gm IVPUSH Q24H KEEGAN Gabapentin (Gabapentin 300 Mg Capsule) 900 mg PO TID KEEGAN Metronidazole (Flagyl) 500 mg in 100 mls @ 100 mls/hr IV Q8H KEEGAN Last Admin: 08/28/24 09:58 Dose: 100 mls/hr Documented By: BRYAN Doxycycline Hyclate 100 mg/ (Sodium Chloride) 250 mls @ 166.67 mls/hr IV Q12H [facility] [place] Last Infusion: 08/28/24 07:20 Dose: Infused Documented By: BRYAN Losartan Potassium (Losartan Potassium 50 Mg Tablet) 100 mg PO DAILY [facility] [place]; Protocol Last Admin: 08/28/24 10:15 Dose: 100 mg Documented By: BRYAN Melatonin (Melatonin 3 Mg Tablet) 6 mg PO BEDTIME PRN PRN Reason: Insomnia Metoclopramide HCl (Metoclopramide Hcl 10 Mg/2 Ml Vial) 5 mg IVPUSH Q6H PRN PRN Reason: Nausea and Vomiting Last Admin: 08/28/24 10:15 Dose: 5 mg Documented By: BRYAN Morphine Sulfate (Morphine Sulfate 4 Mg/Ml Cartridge) 4 mg IVPUSH Q4H PRN; Protocol PRN Reason: Pain, Severe (Pain Scale 7-10) Last Admin: 08/28/24 09:58 Dose: 4 mg Documented By: BRYAN Ondansetron HCl (Ondansetron Hcl 4 Mg/2 Ml Vial) 4 mg IVPUSH Q8H PRN PRN Reason: Nausea and Vomiting Last Admin: 08/28/24 07:23 Dose: 4 mg Documented By: BRYAN Oxycodone HCl (Oxycodone Hcl Immed Release 5 Mg Tablet) 5 mg PO Q6H PRN PRN Reason: Pain, Moderate(Pain Scale 4-6) Polyethylene Glycol (Polyethylene Glycol 3350 17 Gm Powd.Pack) 17 gm PO DAILY PRN PRN Reason: Constipation Sertraline HCl (Sertraline Hcl 100 Mg Tablet) 100 mg PO DAILY [facility] [place] Sodium Chloride (0.9 % Sodium Chloride Flush 3 Ml Syringe) 3 ml IVFLUSH QSHIFT [facility] [place] Last Admin: 08/28/24 07:19 Dose: 3 ml Documented By: BRYAN Tizanidine HCl (Tizanidine Hcl 4 Mg Tablet) 2 mg PO TID PRN PRN Reason: severe pain Trazodone HCl (Trazodone Hcl 50 Mg Tablet) 150 mg PO BEDTIME PRN PRN Reason: insomnia Labs 08/27/24 09:50 05/31/25 11:24 Labs: Laboratory Results - last 24 hr 08/27/24 08/27/24 11:24 12:49 Anion Gap 13 Estim Creat Clear Calc 86.7 Estimated GFR > 60 Random Glucose 83 Calcium 9.4 Magnesium 1.9 Total Bilirubin 0.7 Direct Bilirubin 0.2 AST 22 ALT 32 H Alkaline Phosphatase 112 Total Protein 7.4 Albumin 4.4 Lipase 61 Beta HCG, Quant 6 Urine Color Yellow Urine Appearance Clear Urine pH 6.0 Ur Specific [place] 1.015 Urine Protein Negative Urine Glucose (UA) Negative Urine Ketones Negative Urine Blood Negative Urine Nitrite Negative Ur Leukocyte Esterase Negative Urine RBC 0-2 Urine WBC 0-5 Ur Squamous Epith Cells 0-2 Urine Bacteria None Seen Hyaline Casts 0-2 Chlam trachomat DNA PCR NOT DETECTED N.gonorrhoeae DNA (PCR) NOT DETECTED T. vaginalis (PCR) NOT DETECTED Bact vaginosis (PCR) NEGATIVE C. 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 h/o opiate use on suboxone, borderline personality disorder, PTES who presented to the emergency department with 3 day history of abdominal pain, chills, abdominal pain being admitted for intractable abdominal pain possibly due to PID Intractable Abdominal pain with nausea and diarrhea Abdominal CT scan with contrast essentially normal, CBD dilated although no significant RUQ pain and normal LFTs pain not c/w crohns flare per pt UA negative possible PID (although per ED documentation no cervical motion tenderness on exam) seen by R&D LAB TECHNICIAN - recommend treating for PID with IV ceftriaxone, doxycycline, metronidazole to complete 14 day course (outpatient follow up with R&D LAB TECHNICIAN) possible gastroenteritis - stool studies pending Pain control, antiemetics check abdominal US Elevated HCG Likely due to elevated LH and menopause can repeat 6/2 HTN bp elevated due to vomiting resume losartan Hold HCTZ for now P.r.n. hydralazine IV as needed for systolic greater than 180 seizure d/o no recent seizure activity now on gabapentin SLE reports no active dz/remission. not currently on any meds Mood disorder Continue sertraline dvt ppx - documented allergy to heparin. mechanical devices/early ambulation Quality Stroke Does the patient have a stroke diagnosis?: No VTE Prior VTE?: No VTE Risk Level:: Medical - moderate - high VTE Device Contraindication: N/A - Device Ordered VTE Drug Contraindication: Drug Allergy
--- NOTE | 2024-08-28 14:57 | MHC.CM.PN ---
PT LIVES ALONE HIS INDEPENDENT WILL NOT NEED SERVICES WHEN DCD DC PLAN HOME N/S
--- NOTE | 2024-08-28 16:34 | P.PNOB_ITS ---
AGRICULTURAL COMMODITIES INSPECTOR - Subjective Subjective Date of Service: 08/28/24 Interval history: Doing well still complaining of right lower quadrant pain but has improved by around 30% according to the patient Patient reporting a lot of nausea this morning. Did not have any further diarrhea overnight On ceftriaxone/doxycycline/metronidazole Subjective Findings: Ambulating well: Reports [employer] SUPERVISOR Physical Exam Vitals Vital signs: Temp Pulse Resp BP Pulse Ox O2 Del Method 97.5 F 56 20 172/94 H 98 Room Air 08/28/24 12:21 08/28/24 16:32 08/28/24 15:12 08/28/24 16:32 08/28/24 15:12 08/28/24 15:12 BMI result Body Mass Index 36.9 Abdomen Auscultation/Inspection/Palpation: Soft and Tenderness (Right lower quadrant pain no guarding or rebound) AGRICULTURAL COMMODITIES INSPECTOR - Prog Note: Results Labs 08/27/24 09:50 08/27/24 11:24 AGRICULTURAL COMMODITIES INSPECTOR - A/P (1) Suprapubic abdominal pain: Status: Acute Assessment and Plan: Continue IV antibiotics, repeat hCG in a.m. Time Spent With Patient Time: Total time managing care of this patient today ____ minutes. Quality Measures - [employer] SUPERVISOR H&P VTE Prior VTE?: No VTE Risk Level:: Medical - moderate - high VTE Device Contraindication: N/A - Device Ordered VTE Drug Contraindication: Drug Allergy
[2024-08-28] MEDS: cefTRIAXone sodium 1 GM VIAL IVPUSH (17:50)
--- NOTE | 2024-08-28 18:23 | PC.NURSE ---
Pt refusing SCD devices, pt states she understands risks of DVT, and importance of prevention.
[2024-08-28] MEDS: Doxycycline Hyclate 100 MG in 0.9 % Sodium Chloride 250 ML 166.7 MG IV (19:28)
[2024-08-28] MEDS: Gabapentin 300 MG CAPSULE 900 MG PO (21:05)
--- NOTE | 2024-08-28 22:23 | PM.EVENT ---
Event Note Date of Service: 08/28/24 Event Note: pt seen at 21:00 as she was requesting to leave AMA. I spoke with the pt regarding the risks of leaving against medical advice including risk of worsening sx, sepsis, peritonitis, and . she currently requires IV abx and is still not feeling back to baseline. she reports she is uncomfortable with her IV and is asking to shower and take her sleep medications. I spoke with her nurse about replacing the IV and covering the IV so that she can shower. the pt agreed to stay with the accommodations discussed. the IV does not appear infected or infiltrated currently in the R AC. Time Spent With Patient Time: Total time managing care of this patient today ____ minutes.
--- NOTE | 2024-08-28 22:31 | PC.NURSE ---
pt c/o of IV burning at the start of shift refusing to have another IV started and wanted to just go home. notified, CARLOS JIMÉNEZ came up to talk with pt and she agreed to stay and have an us guided IV started.Contacted Марина wax room supervisor no one on tonight to start us IV. ordered po antibiotics went to give to pt and pt stated she is not staying. came to talk to pt still wants to leave AMA form signed by pt.
--- NOTE | 2024-08-29 01:04 | PM.EVENT ---
Event Note Date of Service: 08/28/24 Event Note: 10:28 PM - Patient decided to leave AMA and signed paperwork. She felt her symptoms are not related to PID and would like to go home and follow up with her PCP. She was alert and oriented X3 and understands the risks of abandoning the hospital prematurally. She was intructed to return to the ED if any worsning of symptoms. Inga Coyne RN was the witness. Time Spent With Patient Time: Total time managing care of this patient today ____ minutes.
--- NOTE | 2024-08-29 01:09 | P.DS_ITS ---
DS: Providers Provider Date of Service: 08/28/24 Date of admission: 08/27/24 16:36 Date of discharge: 08/28/24 Primary care physician: Hugh Ng MD Admitting clinician: Sammy Iglesias Attending physician on discharge: Yady Romero DS: Diagnosis Discharge Diagnosis (1) Suprapubic abdominal pain: Status: Acute DS: Summary Hospital Course Hospital Course: Chief Complaint: abdominal pain This is a 54-year-old female with history of SLE, Crohn's disease, DVT/PE no longer on AC, HTN, seizure disorder who presents to the emergency department with complaints of abdominal pain. Patient reports 3 day history of progressively worsening right lower quadrant abdominal pain associated with nausea. She had 1 episode of vomiting 3 days ago with no subsequent episodes. Her abdominal pain was initially intermittent but has become persistent. Nothing makes the pain better. She has had decreased appetite. She also reports multiple episodes of nonbloody diarrhea. Her abdominal pain is not consistent Crohn's flares, she reports her Crohn's disease has been well controlled for the past several years. In the emergency department lab work was relatively unremarkable. CT scan of the abdomen and pelvis with contrast with mild thickening of the bladder, dilation of the common bile duct, status post cholecystectomy. Urinalysis negative for acute infection. She denies urinary symptoms including dysuria, polyuria and denies vaginal discharge. LFTs within normal limits, no right upper quadrant abdominal pain. Thick Doppler ultrasound revealed no evidence of ovarian torsion. She was seen by clinical radiologist who felt that her symptoms could be related to PID and recommended 14 day course of antibiotics. She has not been sexually active, has no history of recent pelvic instrumentation. Gonorrhea, chlamydia and BV panel negative. Patient persistent abdominal pain requiring multiple doses of IV narcotics and therefore the patient will be admitted for further management. Hospital course: Patient was admitted to the [facility] ([id number]). she was treated with IV antibiotic therapy with ceftriaxone, doxycycline, metronidazole to cover for possible PID. Abdomen pelvis CT scan showed under distended mild take bladder ? cystitis. Urinalysis was not consistent with UTI. Testing for T vaginalis, bact vaginosis, C. kresei, gonorrhea, chlamydia and cardida came back not detected. Viral testing for influenza, RSV and COVID-19 is negative. Patient was seen by Gynecology Service, Dr. Johnnie Payne. Full liquid diet was ordered. Symptomatic therapy with morphine with Zofran IV was given. Her home medications were continued. Her blood workup including CBC and CMP were unremarkable. Around 22:30 patient requested to leave AMA and signed paperwork. Time spent discussing smoking cessation with patient: 3 to 10 minutes Time Attestation Discharge Coordination Time (in mins): 10:30 PM Quality: Safe Use of Opioids Does Pt have an Active Cancer Diagnosis on the Problem List?: No Quality: Stroke Does the patient have a stroke diagnosis?: No Physical Exam Vital Signs: Vital Signs: Last Vital Signs Temp 97.6 F 08/28/24 19:47 Pulse 56 08/28/24 19:47 Resp 16 08/28/24 19:47 BP 142/72 H 08/28/24 19:47 Pulse Ox 97 08/28/24 19:47 O2 Del Method Room Air 08/28/24 19:47 BMI result Body Mass Index 36.9 DS: Data Data Completed and Pending Labs on day of discharge: Preliminary micro results at discharge 08/27/24 16:40 Blood Culture - Preliminary Blood - Venous No growth after 24 hours. 08/27/24 16:28 Blood Culture - Preliminary Blood - Venous No growth after 24 hours. Discharge Plan Discharge Patient Disposition: Left Against Medical Advice Discharge Diagnosis: Abdominal pain, nausea, vomiting and diarrhea. Referrals: Hugh Ng MD [Primary Care Provider] - 1 Week Discharge Medications: No Action gabapentin 300 mg capsule 900 mg PO TID fluticasone propionate 50 mcg/actuation spray,suspension 1 spray intranasal BID PRN (Reason: congestion) multivitamin [Daily-Joanna] Tablet 1 tab PO DAILY 30 Days Qty: 30 0RF lidocaine 5 % Ointment 1 appl topical Q6H PRN (Reason: right knee pain) 30 Days Qty: 100 0RF Protocol: Apply to: Apply to: right knee capsaicin [Capzasin] 0.15 % liquid 1 appl topical DAILY PRN (Reason: pain) 30 Days Qty: 29.5 0RF tizanidine 2 mg tablet 2 mg PO TID PRN (Reason: severe pain) cetirizine 10 mg tablet 10 mg PO DAILY PRN (Reason: congestion) [id number] 50-325-40 mg tablet 1 tab PO BID PRN (Reason: headache) trazodone 150 mg tablet 150 mg PO BEDTIME PRN (Reason: insomnia) albuterol sulfate [Ventolin HFA] 90 mcg/actuation HFA aerosol inhaler 2 puff inhalation Q4H PRN (Reason: Shortness Of Breath Or Wheezing) hydrochlorothiazide 12.5 mg tablet 12.5 mg PO DAILY losartan 100 mg tablet 100 mg PO DAILY sertraline 100 mg tablet 100 mg PO DAILY Discharge Orders: Discharge Order (Routine); Ordered 08/29/24 Ordered By: Yady Romero Diet: Advance to usual diet Activity on Discharge: As tolerated Print Language: Burkinan Care Plan Goals: left AMA Health Concerns: left AMA Plan of Treatment: left AMA Assessment: left AMA Discharge Date/Time: 08/28/24 22:30
== END 2024-08-28 22:30 | disposition left against medical advice (07) ==
LOC: HO.ED 16:12 → HO.EDOVER 16:37 → HO.S3 08-28 13:37
PROVIDERS: Physician Assistant; Admitting Provider Physician Assistant Medical; Emergency Provider Emergency Medicine; PCP Internal Medicine; Visit Provider Physician Assistant Medical
DX: R10.31 Right lower quadrant pain (principal); R10.2 Pelvic and perineal pain; R19.7 Diarrhea, unspecified; R11.2 Nausea with vomiting, unspecified; M32.9 Systemic lupus erythematosus, unspecified; I10 Essential (primary) hypertension; I82.409 Acute embolism and thrombosis of unspecified deep veins of unspecified lower extremity; K50.90 Crohn's disease, unspecified, without complications; G40.909 Epilepsy, unspecified, not intractable, without status epilepticus; F39 Unspecified mood [affective] disorder; Z79.899 Other long term (current) drug therapy; Z78.0 Asymptomatic menopausal state
CPT/HCPCS: 0241U; 36415; 74177; 76705; 76830; 76856; 80048; 80076; 81001; 81515; 83690; 83735; 84702; 85025; 87040; 87491; 87591; 93975; 96361; 96365; 96366; 96367; 96375; 96376; 99221; 99285; J0131; J0696; J1271; J1836; J2270; J2405; J2765; Q9967

== ENCOUNTER → 2024-08-27 10:00 | Outpatient (BNV) | payer OTHER, SELFPAY | PROVIDERS: Emergency Provider Emergency Medicine; PCP Internal Medicine; Visit Provider Radiology Diagnostic Radiology | DX: R10.9 Unspecified abdominal pain (principal); N83.201 Unspecified ovarian cyst, right side | CPT/HCPCS: 74177; 93975 ==

== ENCOUNTER 2024-08-27 16:36 | Outpatient (BNV) | payer OTHER, SELFPAY | END 2024-08-28 12:02 | PROVIDERS: Admitting Provider Physician Assistant Medical; Emergency Provider Emergency Medicine; PCP Internal Medicine; Visit Provider Radiology Vascular & Interventional Radiology | DX: K83.8 Other specified diseases of biliary tract (principal); R10.9 Unspecified abdominal pain; R11.0 Nausea | CPT/HCPCS: 76705 ==

== ENCOUNTER → 2024-08-27 16:36 | Outpatient (BNV) | payer OTHER, SELFPAY | PROVIDERS: Admitting Provider Physician Assistant Medical; Emergency Provider Emergency Medicine; PCP Internal Medicine; Visit Provider Obstetrics & Gynecology | DX: R10.2 Pelvic and perineal pain (principal) | CPT/HCPCS: 99232 ==

== ENCOUNTER → 2024-08-27 16:36 | Outpatient (BNV) | payer OTHER, SELFPAY | PROVIDERS: Admitting Provider Physician Assistant Medical; Emergency Provider Emergency Medicine; PCP Internal Medicine; Visit Provider Physician Assistant Medical | DX: R10.2 Pelvic and perineal pain (principal) | CPT/HCPCS: 99499 ==